=== PATIENT | female | born 1960 | race African-American/Black ===

== ENCOUNTER 2016-10-11 22:16 | Emergency (ER) | payer OTHER ==
[2016-10-11 22:47] VITALS: TEMP 98.8; BMI 34.2
[2016-10-11] MEDS ORDERED: ONDANSETRON 4 MG/2 ML VIAL IVPUSH STA (23:15)
[2016-10-11] MEDS ORDERED: SODIUM CHLORIDE 1,000 ML IV STA (23:15)
[2016-10-11] MEDS ORDERED: FAMOTIDINE 20 MG/50 ML IVPB 20 MG in PREMIX 50 IVPB ONE (23:15)
--- NOTE | 2016-10-11 23:16 | PDOC ---
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 Patient reports her last meal was on Sunday. The following day, she developed nausea, non-bloody vomiting and nonbloody/nonbilious diarrhea with some diffuse abdominal pain. Patient also has complaints of chills, but denies fever. The patient denies diaphoresis, lightheadedness, cough, SOB, chest pain, and palpitations. Allergies: NKDA Social History: Denies etoh or polysubstance use. Current smoker (half PPD) Past Surgical History: Cholecystectomy, left total knee replacement, lumbar surgery with rods PCP: Dr. Enriqueta Reyes <Veena Angulo - Last Filed: 10/11/16 23:30> - General History Source: Patient <Luis Alberto Hodges - Last Filed: 10/12/16 01:41> - General Chief Complaint: Vomiting/Diarrhea Stated Complaint: NAUSEA/VOMITING Time Seen by Provider: 10/11/16 23:15 Past History <Veena Angulo - Last Filed: 10/11/16 23:30> - Past Medical History Anemia: No Asthma: No Cancer: No Cardiac Disorders: No CVA: No COPD: No CHF: No Dementia: No Diabetes: No GI Disorders: Yes (ACID REFLUX) Disorders: No HTN: Yes Hypercholesterolemia: No Liver Disease: No Suicide Attempt (Hx): No Seizures: No Thyroid Disease: No - Surgical History Abdominal Surgery: No Cardiac Surgery: No Cholecystectomy: Yes (2006) Lung Surgery: No Neurologic Surgery: Yes (LUMBAR SURGERY 2014 WITH RODS) Orthopedic Surgery: Yes (L TKR 2013) - Psycho/Social/Smoking Cessation Hx Anxiety: No Suicidal Ideation: No Smoking History: Current every day smoker Have you smoked in the past 12 months: Yes Number of Cigarettes Smoked Daily: 10 Information on smoking cessation initiated: No 'Breaking Loose' booklet given: 10/19/15 Hx Alcohol Use: No Drug/Substance Use Hx: No Substance Use Type: None Hx Substance Use Treatment: (14 YEARS AGO) <Luis Alberto Hodges - Last Filed: 10/12/16 01:41> - Past Medical History Allergies/Adverse Reactions: Allergies Allergy/AdvReac Type Severity Reaction Status Date / Time No Known Drug Allergies Allergy Verified 10/11/16 22:47 Home Medications: Ambulatory Orders Cyclobenzaprine HCl [Flexeril -] 10 mg PO PRN 07/05/12 Losartan Potassium 25 mg PO DAILY 04/09/14 Methadone HCl 30 mg PO DAILY 04/09/14 Budesonide/Formeterol Fumarate [SYMBICORT 160/4.5mcg -] 1 inh PO PRN 02/20/15 Omeprazole [Prilosec] 40 mg PO DAILY 10/19/15 Latanoprost 0.005% Eye Drops [Xalatan 0.005% Eye Drops -] 1 drop OU HS 10/27/15 Ondansetron [Zofran *Odt*] 4 mg SL TID #30 od.tablet 10/12/16 Review of Systems - Review of Systems Able to Perform ROS?: Yes Comments:: 10/11/16 23:30 CONSTITUTIONAL: Absent: fever, no chills, no fatigue EYES: Absent: visual changes ENT: Absent: ear pain, no sore throat CARDIOVASCULAR: Absent: chest pain, no palpitations RESPIRATORY: Absent: cough, no SOB GI: +abdominal pain, nausea, vomiting, and diarrhea Absent: no constipation GENITOURINARY: Absent: dysuria, no frequency, no hematuria MUSKULOSKELETAL: Absent: back pain, no arthralgia, no myalgia SKIN: Absent: rash NEURO: Absent: headache <Veena Angulo - Last Filed: 10/11/16 23:30> *Physical Exam - Vital Signs Last Vital Signs Temp Pulse Resp BP Pulse Ox 98.8 F 72 18 157/82 98 10/11/16 22:43 10/11/16 22:43 10/11/16 22:43 10/11/16 22:43 10/11/16 22:43 - Physical Exam Comments: 10/11/16 23:30 GENERAL: Well-appearing, well-nourished. No apparent distress. HEENT: Normocephalic, atraumatic. PERRL, EOM intact. CARDIOVASCULAR: Normal S1, S2. Regular rate and rhythm. PULMONARY: Clear to auscultation bilaterally. ABDOMEN: Soft, non-distended, non-tender. No rebound or guarding. EXTREMITIES: Normal ROM in all four extremities. No gross deformities. SKIN: Warm, dry. No rash NEUROLOGICAL: No focal neurological deficits. <Veena Angulo - Last Filed: 10/11/16 23:30> - Vital Signs Last Vital Signs Temp Pulse Resp BP Pulse Ox 98.8 F 72 18 157/82 98 10/11/16 22:43 10/11/16 22:43 10/11/16 22:43 10/11/16 22:43 10/11/16 22:43 <Luis Alberto Hodges - Last Filed: 10/12/16 01:41> ED Treatment Course - LABORATORY CBC & Chemistry Diagram: 10/11/16 23:30 10/11/16 23:30 <Luis Alberto Hodges - Last Filed: 10/12/16 01:41> Medical Decision Making - Medical Decision Making 10/12/16 01:40 Dr. Hodges: The scribe's documentation has been prepared under my direction and personally reviewed by me in its entirery. I confirm that the note above accurately reflects all work, treatment, procedures, and medical decision making performed by me. Pt feels better after IVF in the department. Tolerated PO fluid. Labs are all normal. Will discharge <Luis Alberto Hodges - Last Filed: 10/12/16 01:41> *DC/Admit/Observation/Transfer - Attestations Scribe Attestion: 10/11/16 23:31 Documentation prepared by Veena Angulo, acting as medical legal investigator for Luis Alberto Hodges MD <Veena Angulo - Last Filed: 10/11/16 23:30> - Discharge Dispostion Admit: No <Luis Alberto Hodges - Last Filed: 10/12/16 01:41> Diagnosis at time of Disposition: Nausea & vomiting Qualifiers: Vomiting type: unspecified Vomiting Intractability: non-intractable Qualified Code(s): R11.2 - Nausea with vomiting, unspecified - Discharge Dispostion Disposition: HOME Condition at time of disposition: Stable - Prescriptions Prescriptions: Ondansetron [Zofran *Odt*] 4 mg SL TID #30 od.tablet - Referrals Referrals: Ho Reyes [Primary Care Provider] - - Patient Instructions Printed Discharge Instructions: DI for Nausea -- Adult, DI for Vomiting -- Adult
[2016-10-11] MEDS ORDERED: ONDANSETRON 4 MG/2 ML VIAL ONE (23:31)
[2016-10-11] MEDS ORDERED: FAMOTIDINE 20 MG/50 ML IVPB 50 ML IVPB ONE (23:31)
[2016-10-11 23:38] LABS: BASOPHIL 0.9 % (0-2.0); EOSINOPHIL 1.6 % (0-4.5); MCH 26.9 pg (25.7-33.7); MCHC 33.2 g/dl (32.0-36.0); MEAN CELL VOLUME 81.1 fl (80-96); PLATELET COUNT 242 K/MM3 (134-434); RDW 17.5 % (11.6-15.6); WHITE BLOOD COUNT 8.9 K/mm3 (4.0-10.0)
[2016-10-11 23:56] LABS: ALBUMIN 3.6 g/dl (3.4-5.0); ANION GAP 12 (8-16); CALCIUM 8.8 mg/dL (8.5-10.1); CO2 28 mmol/L (21-32); CREATININE 0.7 mg/dL (0.55-1.02); GLUCOSE,RANDOM 87 mg/dL (74-106); SGPT/ALT 12 U/L (12-78)
[2016-10-11 23:57] LABS: ALK PHOS 121 U/L (45-117); BILIRUBIN,TOTAL 0.7 mg/dL (0.2-1.0); TOT PROT 7.4 g/dl (6.4-8.2)
[2016-10-12 00:05] LABS: SGOT/AST 15 U/L (15-37)
[2016-10-12 00:58] VITALS: BP 125/68; PULSE 70
== END 2016-10-12 01:48 | disposition home or self-care (01) ==
LOC: SUPCPDRO 22:16 → JER 22:16
PROC: 3E033GC Introduction of Other Therapeutic Substance into Peripheral Vein, Percutaneous Approach (ICD-10-PCS; principal; 2016-10-11)
PROC: 3E0337Z Introduction of Electrolytic and Water Balance Substance into Peripheral Vein, Percutaneous Approach (ICD-10-PCS; 2016-10-11)
DX: R11.2 Nausea with vomiting, unspecified (principal); I10 Essential (primary) hypertension; K21.9 Gastro-esophageal reflux disease without esophagitis; G89.4 Chronic pain syndrome; F17.210 Nicotine dependence, cigarettes, uncomplicated
CPT/HCPCS: 36415; 80053; 83690; 85025; 99281-25

== ENCOUNTER 2017-05-09 18:37 | Emergency (ER) | payer OTHER ==
[2017-05-09 19:00] VITALS: TEMP 98.3; BMI 33.8
--- NOTE | 2017-05-09 21:58 | PDOC ---
History of Present Illness - General History Source: Patient Exam Limitations: No Limitations - History of Present Illness Initial Comments: 05/09/17 22:06 The patient is a 56 year old female, with a significant past medical history of HTN, GERD who presents to the emergency department with abdominal pain and nausea for the past 4 days. Patient reports pain is localized to RUQ, LUQ and epigastric region. Patient also reports decreased PO intake. Patient reports last BM 4 days ago and presents to the ED for further evaluation. She denies chest pain, headache or dizziness. She denies fever, chills, diarrhea or constipation. She denies dysuria, frequency, urgency or hematuria. Patient denies sick contacts or recent travel. <Orquidea Noyola - Last Filed: 05/09/17 22:05> - General History Source: Patient <Luis Alberto Hodges - Last Filed: 05/10/17 00:48> - General Chief Complaint: Nausea Stated Complaint: FATIGUE Time Seen by Provider: 05/09/17 21:47 Past History <Orquidea Noyola - Last Filed: 05/09/17 22:05> - Past Medical History Anemia: No Asthma: No Cancer: No Cardiac Disorders: No CVA: No COPD: No CHF: No Dementia: No Diabetes: No GI Disorders: Yes (ACID REFLUX) Disorders: No HTN: Yes Hypercholesterolemia: No Liver Disease: No Seizures: No Thyroid Disease: No Other medical history: BACK PROBLEMS - Surgical History Abdominal Surgery: No Cardiac Surgery: No Cholecystectomy: Yes (2006) Lung Surgery: No Neurologic Surgery: Yes (LUMBAR SURGERY 2014 WITH RODS) Orthopedic Surgery: Yes (L TKR 2013) - Suicide/Smoking/Psychosocial Hx Smoking History: Current every day smoker Have you smoked in the past 12 months: Yes Number of Cigarettes Smoked Daily: 10 Information on smoking cessation initiated: Yes 'Breaking Loose' booklet given: 05/09/17 Hx Alcohol Use: No Drug/Substance Use Hx: No Substance Use Type: None Hx Substance Use Treatment: (14 YEARS AGO) <Luis Alberto Hodges - Last Filed: 05/10/17 00:48> - Past Medical History Allergies/Adverse Reactions: Allergies Allergy/AdvReac Type Severity Reaction Status Date / Time No Known Drug Allergies Allergy Verified 05/09/17 19:00 Home Medications: Ambulatory Orders Cyclobenzaprine HCl [Flexeril -] 10 mg PO PRN 12/14/12 Losartan Potassium 25 mg PO DAILY 04/09/14 Methadone HCl 30 mg PO DAILY 04/09/14 Omeprazole [Prilosec] 40 mg PO DAILY 10/19/15 Latanoprost 0.005% Eye Drops [Xalatan 0.005% Eye Drops -] 1 drop OU HS 10/27/15 Famotidine [Pepcid] 40 mg PO DAILY #30 tablet 05/10/17 Ondansetron [Zofran *Odt*] 4 mg SL TID #30 od.tablet 05/10/17 Review of Systems - Review of Systems Able to Perform ROS?: Yes Comments:: 05/09/17 22:06 CONSTITUTIONAL: Absent: fever, chills, diaphoresis, generalized weakness, malaise, loss of appetite HEENT: Absent: rhinorrhea, nasal congestion, throat pain, throat swelling, difficulty swallowing, mouth swelling, ear pain, eye pain, visual Changes CARDIOVASCULAR: Absent: chest pain, syncope, palpitations, irregular heart rate, lightheadedness , peripheral edema RESPIRATORY: Absent: cough, shortness of breath, dyspnea with exertion, orthopnea, wheezing, stridor, hemoptysis GASTROINTESTINAL: +abdominal pain. +nausea. Absent: abdominal distension, vomiting, diarrhea, constipation, melena, hematochezia GENITOURINARY: Absent: dysuria, frequency, urgency, hesitancy, hematuria, flank pain, genital pain MUSCULOSKELETAL: Absent: myalgia, arthralgia, joint swelling SKIN: Absent: rash, itching, pallor HEMATOLOGIC/IMMUNOLOGIC: Absent: easy bleeding, easy bruising, lymphadenopathy, frequent infections ENDOCRINE: Absent: unexplained weight gain, unexplained weight loss, heat intolerance, cold intolerance NEUROLOGIC: Absent: headache, focal weakness or paresthesias, dizziness, unsteady gait, seizure, mental status changes, bladder or bowel incontinence PSYCHIATRIC: Absent: anxiety, depression, suicidal or homicidal ideation, hallucinations. <Orquidea Noyola - Last Filed: 05/09/17 22:05> *Physical Exam - Vital Signs Last Vital Signs Temp Pulse Resp BP Pulse Ox 98.3 F 70 20 139/74 96 05/09/17 18:53 05/09/17 18:53 05/09/17 18:53 05/09/17 18:53 05/09/17 18:53 - Physical Exam Comments: 05/09/17 22:06 GENERAL: Well developed, well nourished. Awake and alert. In no acute distress. HEENT: Normocephalic, atraumatic. PERRLA, EOMI. No conjunctival pallor. Sclerae are non -icteric. Moist mucous membranes. Oropharynx is clear. NECK: Supple. Full ROM. No JVD. Carotid pulses 2+ and symmetric, without bruits. No thyromegaly. No lymphadenopathy. CARDIOVASCULAR: Regular rate and rhythm. No murmurs, rubs, or gallops. Distal pulses are 2+ and symmetric. PULMONARY: No evidence of respiratory distress. Lungs clear to auscultation bilaterally. No wheezing, rales or rhonchi. ABDOMINAL: +Diffusely tender. +hyperactive bowel sounds. Soft. Non-distended. No rebound or guarding. No organomegaly. MUSCULOSKELETAL Normal range of motion at all joints. No bony deformities or tenderness. No CVA tenderness. EXTREMITIES: No cyanosis. No clubbing. No edema. No calf tenderness. SKIN: Warm and dry. Normal capillary refill. No rashes. No jaundice. NEUROLOGICAL: Alert, awake, appropriate. Cranial nerves 2-12 intact. No deficits to light touch and temperature in face, upper extremities and lower extremities. No motor deficits in the in face, upper extremities and lower extremities. Normoreflexic in the upper and lower extremities. Normal speech. Toes are downgoing bilaterally. Gait is normal without ataxia. PSYCHIATRIC: Cooperative. Good eye contact. Appropriate mood and affect. <Orquidea Noyola - Last Filed: 05/09/17 22:05> - Vital Signs Last Vital Signs Temp Pulse Resp BP Pulse Ox 98.3 F 70 20 139/74 96 05/09/17 18:53 05/09/17 18:53 05/09/17 18:53 05/09/17 18:53 05/09/17 18:53 <Luis Alberto Hodges - Last Filed: 05/10/17 00:48> ED Treatment Course - LABORATORY CBC & Chemistry Diagram: 05/09/17 22:25 05/09/17 22:20 <Luis Alberto Hodges - Last Filed: 05/10/17 00:48> Medical Decision Making - Medical Decision Making 05/10/17 00:47 Dr. Hodges: The scribe's documentation has been prepared under my direction and personally reviewed by me in its entirery. I confirm that the note above accurately reflects all work, treatment, procedures, and medical decision making performed by me. <Luis Alberto Hodges - Last Filed: 05/10/17 00:48> *DC/Admit/Observation/Transfer - Attestations Scribe Attestion: 05/09/17 22:06 Documentation prepared by Orquidea Noyola, acting as medical office receptionist for Luis Alberto Hodges DO <Orquidea Noyola - Last Filed: 05/09/17 22:05> - Discharge Dispostion Admit: No <Luis Alberto Hodges - Last Filed: 05/10/17 00:48> Diagnosis at time of Disposition: Nausea - Discharge Dispostion Disposition: HOME Condition at time of disposition: Stable - Prescriptions Prescriptions: Famotidine [Pepcid] 40 mg PO DAILY #30 tablet Ondansetron [Zofran *Odt*] 4 mg SL TID #30 od.tablet - Referrals Referrals: Ho Reyes [Primary Care Provider] - - Patient Instructions Printed Discharge Instructions: DI for Nausea -- Adult Additional Instructions: drink plenty of fluids. take medication as directed. Follow up with your doctor as needed, Return to ER if symptoms are worse
[2017-05-09] MEDS ORDERED: SODIUM CHLORIDE 1,000 ML IV STA (21:59)
[2017-05-09] MEDS ORDERED: FAMOTIDINE 20 MG/50 ML IVPB 20 MG in PREMIX 50 IVPB ONE (22:00)
[2017-05-09] MEDS ORDERED: KETOROLAC TROMETHAMINE 30 MG/1 ML VIAL IVPUSH ONE (22:00)
[2017-05-09] MEDS ORDERED: FAMOTIDINE 20 MG/50 ML IVPB 50 ML IVPB ONE (22:24)
[2017-05-09] MEDS ORDERED: ONDANSETRON 4 MG/2 ML VIAL ONE (22:24)
[2017-05-09] MEDS ORDERED: ONDANSETRON 4 MG/2 ML VIAL IVPUSH ONE (22:30)
[2017-05-09 22:32] LABS: BASOPHIL 0.6 % (0-2.0); MCHC 32.6 g/dl (32.0-36.0); MEAN CELL VOLUME 82.8 fl (80-96); MEAN PLT VOLUME 9.1 fl (7.5-11.1); NEUTROPHILS 56.8 % (42.8-82.8); PLATELET COUNT 216 K/MM3 (134-434); RDW 16.5 % (11.6-15.6); WHITE BLOOD COUNT 7.4 K/mm3 (4.0-10.0)
[2017-05-09 22:59] LABS: ALBUMIN 3.9 g/dl (3.4-5.0); AMYLASE 137 U/L (25-115); ANION GAP 8 (8-16); BILIRUBIN,TOTAL 0.5 mg/dL (0.2-1.0); CALCIUM 8.7 mg/dL (8.5-10.1); CO2 30 mmol/L (21-32); CREATININE 0.8 mg/dL (0.55-1.02); GLUCOSE,RANDOM 79 mg/dL (74-106); SGPT/ALT 11 U/L (12-78); TOT PROT 7.4 g/dl (6.4-8.2)
[2017-05-09 23:01] LABS: ALK PHOS 107 U/L (45-117); CPK 106 IU/L (26-192); TROPONIN I < 0.02 ng/ml (0.00-0.05)
[2017-05-09 23:02] LABS: SGOT/AST 10 U/L (15-37)
[2017-05-09 23:19] LABS: MAGNESIUM 2.5 mg/dL (1.8-2.4)
[2017-05-09] MEDS ORDERED: KETOROLAC TROMETHAMINE 30 MG/1 ML VIAL ONE (23:20)
[2017-05-10 00:56] LABS: URINE APPEARANCE SLCLOUDY; URINE BILIRUBIN NEGATIVE (NEGATIVE); URINE BLOOD NEGATIVE (NEGATIVE); URINE COLOR YELLOW; URINE GLUCOSE (UA) NEGATIVE (NEGATIVE); URINE KETONE NEGATIVE (NEGATIVE); URINE NITRITE NEGATIVE (NEGATIVE); URINE PROTEIN NEGATIVE (NEGATIVE); URINE UROBILINOGEN NEGATIVE mg/dL (0.2-1.0)
[2017-05-10 02:02] VITALS: BP 127/70; PULSE 65
[2017-05-10 09:33] LABS: URINE LEUK ESTERASE TRACE (NEGATIVE)
[2017-05-10 09:34] LABS: URINE RBC 0-3 /hpf (0-3); URINE WBC 0-3 /hpf (3-5)
[2017-05-10 09:35] LABS: URINE BACTERIA FEW /hpf (NEGATIVE)
--- NOTE | 2017-05-10 12:59 | EKG ---
Test Reason : Blood Pressure : / mmHG Vent. Rate : 056 BPM Atrial Rate : 056 BPM P-R Int : 166 ms QRS Dur : 084 ms QT Int : 486 ms P-R-T Axes : 053 017 009 degrees QTc Int : 468 ms SINUS BRADYCARDIA POSSIBLE LEFT ATRIAL ENLARGEMENT SEPTAL INFARCT , AGE UNDETERMINED ABNORMAL ECG WHEN COMPARED WITH ECG OF 19-OCT-2015 08:47, SEPTAL INFARCT IS NOW PRESENT NONSPECIFIC T WAVE ABNORMALITY NOW EVIDENT IN ANTEROLATERAL LEADS Confirmed by KVNG EDGE MD ([id number]) on 05/10/2017 12:59:05 PM Referred By: Confirmed By:KVNG EDGE MD
== END 2017-05-10 02:01 | disposition home or self-care (01) ==
LOC: JER 18:37
PROC: 3E033GC Introduction of Other Therapeutic Substance into Peripheral Vein, Percutaneous Approach (ICD-10-PCS; principal; 2017-05-09)
PROC: 3E033GC Introduction of Other Therapeutic Substance into Peripheral Vein, Percutaneous Approach (ICD-10-PCS; 2017-05-09)
PROC: 3E0333Z Introduction of Anti-inflammatory into Peripheral Vein, Percutaneous Approach (ICD-10-PCS; 2017-05-09)
DX: R11.0 Nausea (principal); I10 Essential (primary) hypertension; K21.9 Gastro-esophageal reflux disease without esophagitis; F17.210 Nicotine dependence, cigarettes, uncomplicated
CPT/HCPCS: 36415; 80053; 81003; 81015; 82150; 82550; 83690; 83735; 84484; 85025; 93005; 93010; 99283-25

== ENCOUNTER 2017-05-10 09:09 | Emergency (ER) | payer OTHER ==
[2017-05-10 09:27] VITALS: TEMP 98.4; BMI 33.8
[2017-05-10] MEDS ORDERED: ONDANSETRON 4 MG/2 ML VIAL IVPUSH ONE (10:26)
[2017-05-10] MEDS ORDERED: SODIUM CHLORIDE 1,000 ML IV STA (10:26)
[2017-05-10] MEDS ORDERED: ONDANSETRON 4 MG/2 ML VIAL ONE (10:50)
[2017-05-10 11:06] LABS: BASOPHIL 0.7 % (0-2.0); EOSINOPHIL 1.8 % (0-4.5); MCH 26.7 pg (25.7-33.7); MCHC 32.3 g/dl (32.0-36.0); MEAN CELL VOLUME 82.7 fl (80-96); MEAN PLT VOLUME 9.2 fl (7.5-11.1); NEUTROPHILS 56.9 % (42.8-82.8); PLATELET COUNT 218 K/MM3 (134-434); RDW 16.8 % (11.6-15.6); WHITE BLOOD COUNT 7.4 K/mm3 (4.0-10.0)
--- NOTE | 2017-05-10 11:14 | PDOC ---
History of Present Illness - General Chief Complaint: Nausea Stated Complaint: NAUSEA Time Seen by Provider: 05/10/17 09:56 History Source: Patient Exam Limitations: No Limitations - History of Present Illness Initial Comments: 05/10/17 10:05 56-year-old female presents to the ED with complaints of generalized nausea, cold sweats and mild fatigue. Patient was seen here yesterday had lab work including urine done and was sent home after receiving medication which she states did alleviate her symptoms. Patient also had mentioned that she had right upper quadrant pain yesterday but did resolve since the discharge. Patient is currently on methadone 30 mg daily and states there has been no dosage adjustment, other medication use, drug use, alcohol use , recent travel, recent illness. Patient also has no urinary complaints, bowel complaints chest pain or shortness of breath. Timing/Duration: other (4-5 days) Severity: moderate Associated Symptoms: reports: other Past History - Travel Traveled outside of the country in the last 30 days: No Close contact w/someone who was outside of country & ill: No - Past Medical History Allergies/Adverse Reactions: Allergies Allergy/AdvReac Type Severity Reaction Status Date / Time No Known Drug Allergies Allergy Verified 05/10/17 09:21 Home Medications: Ambulatory Orders Cyclobenzaprine HCl [Flexeril -] 10 mg PO PRN 07/05/12 Losartan Potassium 25 mg PO DAILY 04/09/14 Methadone HCl 30 mg PO DAILY 04/09/14 Latanoprost 0.005% Eye Drops [Xalatan 0.005% Eye Drops -] 1 drop OU HS 10/27/15 Famotidine [Pepcid] 40 mg PO DAILY #30 tablet 05/10/17 Ondansetron [Zofran *Odt*] 4 mg SL TID #30 od.tablet 05/10/17 Pantoprazole Sodium 40 mg PO DAILY 05/10/17 Anemia: No Asthma: No Cancer: No Cardiac Disorders: No CVA: No COPD: No CHF: No Dementia: No Diabetes: No GI Disorders: Yes (ACID REFLUX) Disorders: No HTN: Yes Hypercholesterolemia: No Liver Disease: No Seizures: No Thyroid Disease: No - Surgical History Abdominal Surgery: No Cardiac Surgery: No Cholecystectomy: Yes (2006) Lung Surgery: No Neurologic Surgery: Yes (LUMBAR SURGERY 2014 WITH RODS) Orthopedic Surgery: Yes (L TKR 2014) - Suicide/Smoking/Psychosocial Hx Smoking History: Current every day smoker Have you smoked in the past 12 months: Yes Number of Cigarettes Smoked Daily: 10 Information on smoking cessation initiated: No 'Breaking Loose' booklet given: 05/09/17 Hx Alcohol Use: No Drug/Substance Use Hx: No Substance Use Type: None Hx Substance Use Treatment: (14 YEARS AGO) Patient Lives Alone: No Review of Systems - Review of Systems Able to Perform ROS?: Yes Constitutional: Yes: Chills. No: Fever, Weakness HEENTM: No: Symptoms Reported Respiratory: No: Symptoms reported Cardiac (ROS): No: Symptoms Reported ABD/GI: Yes: Nausea, Abdominal cramping (4 days ago to right upper quadrant) Musculoskeletal: No: Symptoms Reported Integumentary: No: Symptoms Reported Neurological: No: Symptoms reported Endocrine: No: Symptoms Reported Hematologic/Lymphatic: No: Symptoms Reported *Physical Exam - Vital Signs Last Vital Signs Temp Pulse Resp BP Pulse Ox 98.4 F 71 19 152/81 95 05/10/17 09:21 05/10/17 09:21 05/10/17 09:21 05/10/17 09:21 05/10/17 09:21 - Physical Exam General Appearance: Yes: Nourished, Appropriately Dressed. No: Apparent Distress HEENT: positive: EOMI, NED. negative: Pale Conjunctivae Neck: positive: Supple Respiratory/Chest: positive: Lungs Clear, Normal Breath Sounds. negative: Respiratory Distress, Accessory Muscle Use Cardiovascular: positive: Regular Rhythm, Regular Rate. negative: Murmur Gastrointestinal/Abdominal: positive: Soft. negative: Tenderness Musculoskeletal: positive: Normal Inspection Extremity: positive: Normal Capillary Refill. negative: Pedal Edema Integumentary: positive: Normal Color, Warm, Moist Neurologic: positive: Normal Mood/Affect, Motor Strength 5/5 (ambulatory) ED Treatment Course - LABORATORY CBC & Chemistry Diagram: 05/10/17 10:57 05/10/17 10:57 - Medications Given in the ED: ED Medications Discontinued Medications Generic Name Dose Route Start Last Admin Trade Name Freq PRN Reason Stop Dose Admin Ondansetron HCl 4 mg 05/10/17 10:26 05/10/17 10:57 Zofran Injection IVPUSH 05/10/17 10:27 4 mg ONCE ONE Administration Medical Decision Making - Medical Decision Making 05/10/17 10:07 Patient with complaints of nausea, generalized fatigue, and cold sweats. Patient states has no GI disorders and has had no recent change in her methadone dosing. Patient received a GI cocktail including fluids yesterday. Labs reviewed from previous visit with no significantly abnormal findings. Patient exam had no reproducible pain in the epigastric or right upper quadrant. Patient was ordered for basic labs including urine, IV fluids and Zofran. Patient will be reevaluated shortly COWS scale 2. 05/10/17 12:00 Laboratory Tests 05/10/17 05/10/17 05/10/17 00:10 10:57 10:57 WBC 7.4 Hgb 13.9 Hct 43.1 RDW 16.8 H Plt Count 218 Neutrophils % 56.9 Sodium 140 Potassium 4.3 Chloride 105 Carbon Dioxide 27 Anion Gap 8 Creatinine 0.7 Creat Clearance w eGFR > 60 Random Glucose 66 L Calcium 8.4 L Total Bilirubin 0.8 D AST 22 D ALT 11 L Total Protein 7.0 Albumin 3.6 Total Amylase 104 D Lipase 162 Urine Nitrite Negative Urine Urobilinogen Negative Ur Leukocyte Esterase Trace H Urine WBC 0-3 /hpf Patient states feeling better. Patient with noted glucose of 66. Patient will be given apple juice and orly crackers. If tolerates will discharge home 05/10/17 12:20 Patient tolerated apple juice and orly crackers. I will discharge patient home with a few doses of Zofran and told to follow bland diet. *DC/Admit/Observation/Transfer Diagnosis at time of Disposition: Weakness, Nausea - Discharge Dispostion Disposition: HOME Condition at time of disposition: Improved - Referrals Referrals: Ho Reyes [Primary Care Provider] - - Patient Instructions Printed Discharge Instructions: [place] Diet, DI for Nausea -- Adult Additional Instructions: At this time your labs, urine, and exam were otherwise negative. I do recommend you follow bland diet for the next few days and take Zofran as needed for nausea. If your symptoms at any given time worsen please go to the nearest emergency department.
[2017-05-10 11:34] LABS: ALBUMIN 3.6 g/dl (3.4-5.0); ALK PHOS 101 U/L (45-117); AMYLASE 104 U/L (25-115); ANION GAP 8 (8-16); CALCIUM 8.4 mg/dL (8.5-10.1); CO2 27 mmol/L (21-32); CREATININE 0.7 mg/dL (0.55-1.02); GLUCOSE,RANDOM 66 mg/dL (74-106); SGPT/ALT 11 U/L (12-78)
[2017-05-10 11:35] LABS: BILIRUBIN,TOTAL 0.8 mg/dL (0.2-1.0)
[2017-05-10 11:36] LABS: SGOT/AST 22 U/L (15-37)
--- NOTE | 2017-05-10 11:50 | PDOC ---
*Physical Exam - Vital Signs Last Vital Signs Temp Pulse Resp BP Pulse Ox 98.4 F 71 19 152/81 95 05/10/17 09:21 05/10/17 09:21 05/10/17 09:21 05/10/17 09:21 05/10/17 09:21 - Physical Exam Comments: 05/10/17 11:56 Vitals: Triage Vital signs reviewed General Appearance: no acute distress, well nourished well developed Head: Atraumatic Neck: Supple; No Nucal rigidity Chest Wall: Nontender Cardiac: Regular rate and rhythm, no murmurs, no rubs, no gallops Lungs: Clear to auscultation bilateral, good air movement bilaterally Abdomen: Soft, non distended, normal bowel sounds, non tender to palpation Extremities: Full range of motion to all extremities, no cyanosis, clubbing, or edema Skin: Warm and dry, no rashes or lesions, no rash, no petechiae Neuro: AOX3; Cranial Nerves 2-12 grossly intact, Strength intact to all extremities, Sensation intact to all extremities Psych: normal mood, normal affect <Jacey Uribe - Last Filed: 05/10/17 11:56> - Vital Signs Last Vital Signs Temp Pulse Resp BP Pulse Ox 98.4 F 71 19 152/81 95 05/10/17 09:21 05/10/17 09:21 05/10/17 09:21 05/10/17 09:21 05/10/17 09:21 <Karel Ruggiero - Last Filed: 05/10/17 18:12> ED Treatment Course - LABORATORY CBC & Chemistry Diagram: 05/10/17 10:57 05/10/17 10:57 - ADDITIONAL ORDERS Additional order review: Laboratory Results 05/10/17 10:57 Sodium 140 Potassium 4.3 Chloride 105 Carbon Dioxide 27 Anion Gap 8 BUN 6 L Creatinine 0.7 Creat Clearance w eGFR > 60 Random Glucose 66 L Calcium 8.4 L Total Bilirubin 0.8 D AST 22 D ALT 11 L Alkaline Phosphatase 101 Total Protein 7.0 Albumin 3.6 Total Amylase 104 D Lipase 162 05/10/17 10:57 RBC 5.21 H MCV 82.7 MCHC 32.3 RDW 16.8 H MPV 9.2 Neutrophils % 56.9 Lymphocytes % 32.1 Monocytes % 8.5 Eosinophils % 1.8 Basophils % 0.7 - Medications Given in the ED: ED Medications Discontinued Medications Generic Name Dose Route Start Last Admin Trade Name Freq PRN Reason Stop Dose Admin Sodium Chloride 1,000 mls @ 1,000 mls/hr 05/10/17 10:26 05/10/17 10:56 Normal Saline - IV 05/10/17 11:25 1,000 mls/hr ASDIR STA Administration Ondansetron HCl 4 mg 05/10/17 10:26 05/10/17 10:57 Zofran Injection IVPUSH 05/10/17 10:27 4 mg ONCE ONE Administration <Jacey Uribe - Last Filed: 05/10/17 11:56> - LABORATORY CBC & Chemistry Diagram: 05/10/17 10:57 05/10/17 10:57 - ADDITIONAL ORDERS Additional order review: Laboratory Results 05/10/17 10:57 Sodium 140 Potassium 4.3 Chloride 105 Carbon Dioxide 27 Anion Gap 8 BUN 6 L Creatinine 0.7 Creat Clearance w eGFR > 60 Random Glucose 66 L Calcium 8.4 L Total Bilirubin 0.8 D AST 22 D ALT 11 L Alkaline Phosphatase 101 Total Protein 7.0 Albumin 3.6 Total Amylase 104 D Lipase 162 05/10/17 10:57 RBC 5.21 H MCV 82.7 MCHC 32.3 RDW 16.8 H MPV 9.2 Neutrophils % 56.9 Lymphocytes % 32.1 Monocytes % 8.5 Eosinophils % 1.8 Basophils % 0.7 - Medications Given in the ED: ED Medications Discontinued Medications Generic Name Dose Route Start Last Admin Trade Name Freq PRN Reason Stop Dose Admin Sodium Chloride 1,000 mls @ 1,000 mls/hr 05/10/17 10:26 05/10/17 10:56 Normal Saline - IV 05/10/17 11:25 1,000 mls/hr ASDIR STA Administration Ondansetron HCl 4 mg 05/10/17 10:26 05/10/17 10:57 Zofran Injection IVPUSH 05/10/17 10:27 4 mg ONCE ONE Administration <Karel Ruggiero - Last Filed: 05/10/17 18:12> Medical Decision Making - Medical Decision Making 05/10/17 11:56 56 y/o F with a PMHx of HTN, currently on Methadone presents to the ED c/o withdrawal symptoms. Patient was here last night for similar symptoms. She reports associated nausea. Denies vomiting. <Jacey Uribe - Last Filed: 05/10/17 11:56> - Medical Decision Making 05/10/17 18:11 Feels much better COWS score to no evidence of withdrawal patient asking to go home tolerating fluids and food Findings, need for follow-up and strict return instructions discussed patient. <Karel Ruggiero - Last Filed: 05/10/17 18:12> *DC/Admit/Observation/Transfer - Attestations Scribe Attestion: 05/10/17 11:57 Documentation prepared by Jacey Uribe, acting as medical screener for Karel Ruggiero MD. <Jacey Uribe - Last Filed: 05/10/17 11:56> <Karel Ruggiero - Last Filed: 05/10/17 18:12> Diagnosis at time of Disposition: Weakness, Nausea - Discharge Dispostion Disposition: HOME Condition at time of disposition: Improved - Prescriptions Prescriptions: Ondansetron HCl [Zofran] 4 mg PO TID PRN #12 tablet PRN Reason: Nausea And/Or Vomiting - Referrals Referrals: Ho Reyes [Primary Care Provider] - - Patient Instructions Printed Discharge Instructions: [place] Diet, DI for Nausea -- Adult Additional Instructions: At this time your labs, urine, and exam were otherwise negative. I do recommend you follow bland diet for the next few days and take Zofran as needed for nausea. If your symptoms at any given time worsen please go to the nearest emergency department.
[2017-05-10 12:40] VITALS: BP 142/81; PULSE 67
== END 2017-05-10 12:40 | disposition home or self-care (01) ==
LOC: JER 09:09
PROC: 3E033GC Introduction of Other Therapeutic Substance into Peripheral Vein, Percutaneous Approach (ICD-10-PCS; principal; 2017-05-10)
DX: R53.1 Weakness (principal); R11.0 Nausea
CPT/HCPCS: 36415; 80053; 82150; 83690; 85025; 87086; 99283-25

== ENCOUNTER 2017-10-28 08:40 | Emergency (ER) | payer OTHER ==
[2017-10-28 08:46] VITALS: BP 145/75; PULSE 78; TEMP 99.1; BMI 31.8
[2017-10-28 09:32] LABS: BASO % 0.5 % (0-2.0); EOS % 0.5 % (0-4.5); HEMOGLOBIN 16.6 GM/dL (10.7-15.3); LYMPH % 27.1 % (8-40); MCH 28.4 pg (25.7-33.7); MCHC 33.1 g/dl (32.0-36.0); MEAN CELL VOLUME 85.9 fl (80-96); MEAN PLT VOLUME 8.7 fl (7.5-11.1); MONO % 7.6 % (3.8-10.2); NEUT % 64.3 % (42.8-82.8); PLATELET COUNT 238 K/MM3 (134-434); RBC 5.83 M/mm3 (3.60-5.2); RDW 15.9 % (11.6-15.6); WHITE BLOOD COUNT 7.6 K/mm3 (4.0-10.0)
[2017-10-28 09:37] LABS: URINE APPEARANCE CLOUDY; URINE BILIRUBIN NEGATIVE (<2.0 mg/dL); URINE COLOR YELLOW; URINE GLUCOSE (UA) NEGATIVE (NEGATIVE); URINE KETONE TRACE (NEGATIVE); URINE LEUK ESTERASE TRACE (NEGATIVE); URINE NITRITE NEGATIVE (NEGATIVE); URINE PROTEIN NEGATIVE (NEGATIVE); URINE UROBILINOGEN NEGATIVE mg/dL (0.2-1.0)
[2017-10-28 09:42] LABS: EPI CELLS MODERATE /HPF (FEW); URINE BACTERIA MODERATE /hpf (NONE SEEN); URINE MUCUS MODERATE
[2017-10-28 10:04] LABS: ALBUMIN 4.2 g/dl (3.4-5.0); ANION GAP 7 (8-16); BILIRUBIN,TOTAL 0.6 mg/dL (0.2-1.0); BLOOD UREA NITROGEN 9 mg/dL (7-18); CALCIUM 9.1 mg/dL (8.5-10.1); CHLORIDE 101 mmol/L (98-107); CO2 28 mmol/L (21-32); CREATININE 0.8 mg/dL (0.55-1.02); GLUCOSE,RANDOM 63 mg/dL (74-106); SGPT/ALT 17 U/L (12-78); SODIUM 136 mmol/L (136-145); TOT PROT 8.4 g/dl (6.4-8.2)
[2017-10-28 10:05] LABS: ALK PHOS 124 U/L (45-117)
--- NOTE | 2017-10-28 10:18 | PDOC ---
History of Present Illness - General History Source: Patient Exam Limitations: No Limitations - History of Present Illness Initial Comments: 10/28/17 10:22 The patient is a 56-year-old female, with a significant past medical history of HTN, hyperlipidemia, GERD, and arthritis, who presents to the emergency department with 6 days of epigastric pain, nausea, and loss of appetite. The patient states that the pain has been constant since then and is exacerbated after she eats. She visited the ED a couple of months ago with similar symptoms and had labs done which revealed no abnormalities. The patient had an EGD performed last year by her Dba Developer, Dr. Benitez, which revealed no ulcers and was normal. The patient has been on prilosec for her GERD symptoms. She also reports having left nipple discharge that resolved back in may, but recurred once again. Patient has an upcoming appointment with her PCP, Dr. Reyes, this Sunday. Patient reports nonproductive cough. The patient denies any fever, chills, diarrhea, or constipation. Denies chest pain or shortness of breath. Denies any urinary symptoms. Allergies: NKDA Surgical Hx: Cholecystectomy, Total Hysterectomy due to fibroids, L TKR 2013, Lumbar Surgery with rods-2014. PCP: Dr. Reyes Gastro: Dr. Marciano Benitez ([facility]) <Kenia Miner - Last Filed: 10/28/17 10:22> - General History Source: Patient Exam Limitations: No Limitations <Stephanie Dent - Last Filed: 10/28/17 12:29> - General Chief Complaint: Loss of Appetite Stated Complaint: LOSS OF APPETITE, NAUSEA Past History <Kenia Miner - Last Filed: 10/28/17 10:22> - Past Medical History Anemia: No Asthma: No Cancer: No Cardiac Disorders: No CVA: No COPD: No CHF: No Dementia: No Diabetes: No GI Disorders: Yes (ACID REFLUX) Disorders: No HTN: Yes Hypercholesterolemia: No Liver Disease: No Seizures: No Thyroid Disease: No - Surgical History Abdominal Surgery: No Cardiac Surgery: No Cholecystectomy: Yes (2006) Lung Surgery: No Neurologic Surgery: Yes (LUMBAR SURGERY 2014 WITH RODS) Orthopedic Surgery: Yes (L TKR 2013) - Suicide/Smoking/Psychosocial Hx Smoking History: Current every day smoker Have you smoked in the past 12 months: Yes Number of Cigarettes Smoked Daily: 6 Information on smoking cessation initiated: Yes 'Breaking Loose' booklet given: 10/28/17 Hx Alcohol Use: No Drug/Substance Use Hx: No Substance Use Type: None Hx Substance Use Treatment: (14 YEARS AGO) <Stephanie Dent - Last Filed: 10/28/17 12:29> - Past Medical History Allergies/Adverse Reactions: Allergies Allergy/AdvReac Type Severity Reaction Status Date / Time No Known Drug Allergies Allergy Verified 10/28/17 08:45 Home Medications: Ambulatory Orders Losartan Potassium 25 mg PO DAILY 04/09/14 Methadone HCl 30 mg PO DAILY 04/09/14 Cephalexin [Keflex] 500 mg PO TID #21 capsule 10/28/17 Ondansetron [Ondansetron Odt] 8 mg PO TID PRN #15 tab.rapdis MDD 3 10/28/17 Review of Systems - Review of Systems Able to Perform ROS?: Yes Comments:: 10/28/17 10:23 GENERAL/CONSTITUTIONAL: (+)Loss of appetite. No fever or chills. No weakness. HEAD, EYES, EARS, NOSE AND THROAT: No change in vision. No ear pain or discharge. No sore throat. CARDIOVASCULAR: No chest pain or shortness of breath. RESPIRATORY: No cough, wheezing, or hemoptysis. GASTROINTESTINAL: (+)Nausea, epigastric pain. No vomiting, diarrhea or constipation. GENITOURINARY: No dysuria, frequency, or change in urination. MUSCULOSKELETAL: No joint or muscle swelling or pain. No neck or back pain. SKIN: No rash NEUROLOGIC: No headache, vertigo, loss of consciousness, or change in strength/ sensation. ENDOCRINE: No increased thirst. No abnormal weight change. HEMATOLOGIC/LYMPHATIC: No anemia, easy bleeding, or history of blood clots. ALLERGIC/IMMUNOLOGIC: No hives or skin allergy. <Kenia Miner - Last Filed: 10/28/17 10:22> *Physical Exam - Vital Signs Last Vital Signs Temp Pulse Resp BP Pulse Ox 99.1 F 78 17 145/75 95 10/28/17 08:43 10/28/17 08:43 10/28/17 08:43 10/28/17 08:43 10/28/17 08:43 - Physical Exam Comments: 10/28/17 10:24 GENERAL: Awake, alert, and fully oriented, in no acute distress HEAD: No signs of trauma EYES: PERRLA, EOMI, sclera anicteric, conjunctiva clear ENT: Auricles normal inspection, nares patent, oropharynx clear without exudates. Moist mucosa. NECK: Normal ROM, supple, no lymphadenopathy, JVD, or masses LUNGS: Breath sounds equal, clear to auscultation bilaterally. No wheezes, and no crackles HEART: Regular rate and rhythm, normal S1 and S2, no murmurs, rubs or gallops ABDOMEN: Soft, nontender, normoactive bowel sounds. No guarding, no rebound. No masses EXTREMITIES: Normal range of motion, no edema. No clubbing or cyanosis. No cords, erythema, or tenderness NEUROLOGICAL: Alert and oriented x 3. SKIN: Warm, Dry, normal turgor, no rashes or lesions noted <Kenia Miner - Last Filed: 10/28/17 10:22> - Vital Signs Last Vital Signs Temp Pulse Resp BP Pulse Ox 99.1 F 78 17 145/75 95 10/28/17 08:43 10/28/17 08:43 10/28/17 08:43 10/28/17 08:43 10/28/17 08:43 <Stephanie Dent - Last Filed: 10/28/17 12:29> Heart Score/ECG Review #1 General ECG Interpretation: Sinus Rhythm, Normal Rate (70), Normal Intervals, No acute ischemic changes <Stephanie Dent - Last Filed: 10/28/17 12:29> ED Treatment Course - LABORATORY CBC & Chemistry Diagram: 10/28/17 09:26 10/28/17 09:26 - ADDITIONAL ORDERS Additional order review: Laboratory Results 10/28/17 10/28/17 09:26 09:11 Sodium 136 Potassium 3.9 Chloride 101 Carbon Dioxide 28 Anion Gap 7 L BUN 9 Creatinine 0.8 Creat Clearance w eGFR > 60 Random Glucose 63 L Calcium 9.1 Total Bilirubin 0.6 D AST 19 ALT 17 Alkaline Phosphatase 124 H Total Protein 8.4 H Albumin 4.2 Urine Color Yellow Urine Appearance Cloudy Urine pH 5.0 Ur Specific [place] 1.014 Urine Protein Negative Urine Glucose (UA) Negative Urine Ketones Trace H Urine Blood Negative Urine Nitrite Negative Urine Bilirubin Negative Urine Urobilinogen Negative Ur Leukocyte Esterase Trace Urine WBC (Auto) 36 Urine RBC (Auto) 14 Ur Epithelial Cells Moderate Urine Bacteria Moderate Urine Mucus Moderate 10/28/17 09:26 RBC 5.83 H MCV 85.9 MCHC 33.1 RDW 15.9 H MPV 8.7 Neutrophils % 64.3 Lymphocytes % 27.1 Monocytes % 7.6 Eosinophils % 0.5 Basophils % 0.5 <Kenia Miner - Last Filed: 10/28/17 10:22> - LABORATORY CBC & Chemistry Diagram: 10/28/17 09:26 10/28/17 09:26 - ADDITIONAL ORDERS Additional order review: Laboratory Results 10/28/17 09:11 Urine Color Yellow Urine Appearance Cloudy Urine pH 5.0 Ur Specific [place] 1.014 Urine Protein Negative Urine Glucose (UA) Negative Urine Ketones Trace H Urine Blood Negative Urine Nitrite Negative Urine Bilirubin Negative Urine Urobilinogen Negative Ur Leukocyte Esterase Trace Urine WBC (Auto) 36 Urine RBC (Auto) 14 Ur Epithelial Cells Moderate Urine Bacteria Moderate Urine Mucus Moderate 10/28/17 09:26 RBC 5.83 H MCV 85.9 MCHC 33.1 RDW 15.9 H MPV 8.7 Neutrophils % 64.3 Lymphocytes % 27.1 Monocytes % 7.6 Eosinophils % 0.5 Basophils % 0.5 <Stephanie Dent - Last Filed: 10/28/17 12:29> Medical Decision Making - Medical Decision Making 10/28/17 10:15 56-year-old female with a history of reflux here today complaining of 6 days of nausea and decreased appetite and epigastric pain, worse with food. Has had a prior cholecystectomy and hysterectomy and an EGD one year ago which was unremarkable. Takes Protonix on a regular basis. On exam abdomen is nontender unremarkable exam. Differential diagnosis includes duodenal ulcer gastritis reflux pancreatitis less likely with a nontender exam is as UTI, electrolyte abnormality, atypical cardiac problem, plan EKG labs troponin lipase urine we'll treat with Zofran and antacids. Reassess patient will likely need to follow-up with her GI this week in addition has follow-up scheduled for atypical we'll discharge this Sunday <Stephanie Dent - Last Filed: 10/28/17 12:29> *DC/Admit/Observation/Transfer - Attestations Scribe Attestion: 10/28/17 10:24 Documentation prepared by Kenia Miner, acting as medical records analyst for Stephanie Dent MD. <Kenia Miner - Last Filed: 10/28/17 10:22> <Stephanie Dent - Last Filed: 10/28/17 12:29> Diagnosis at time of Disposition: UTI (urinary tract infection) - Discharge Dispostion Disposition: HOME Condition at time of disposition: Improved - Prescriptions Prescriptions: Cephalexin [Keflex] 500 mg PO TID #21 capsule Ondansetron [Ondansetron Odt] 8 mg PO TID PRN #15 tab.rapdis MDD 3 PRN Reason: Nausea - Referrals Referrals: Ho Reyes [Primary Care Provider] - - Patient Instructions Printed Discharge Instructions: Urinary Tract Infection Additional Instructions: take keflex 500 mg three times daily x 7 days. you should follow up with your doctor within one week. use zofran 8 mg every 8 hours as needed for nausea. you should follow up with the breast surgeon as scheduled for next week. also you can follow up with a software reverse engineer Dr Benitez. call to schedule. - Post Discharge Activity
[2017-10-28 10:21] LABS: POTASSIUM 3.9 mmol/L (3.5-5.1); SGOT/AST 19 U/L (15-37)
[2017-10-28] MEDS ORDERED: SODIUM CHLORIDE 0.9% 1000 ML INFUS.BAG IV ONE (10:23)
[2017-10-28] MEDS ORDERED: ONDANSETRON 4 MG/2 ML VIAL IVPUSH ONE (10:23)
[2017-10-28] MEDS ORDERED: MAG HYDROX/AL HYDROX/SIMETH 30 ML UNIT-DOSE CUP PO ONE (10:24)
[2017-10-28] MEDS ORDERED: LIDOCAINE VISCOUS 2% ORAL/TOP 20 ML UNIT-DOSE CUP MM ONE (10:24)
[2017-10-28] MEDS ORDERED: MAG HYDROX/AL HYDROX/SIMETH 30 ML UNIT-DOSE CUP ONE (10:25)
[2017-10-28] MEDS ORDERED: LIDOCAINE VISCOUS 2% ORAL/TOP 20 ML UNIT-DOSE CUP ONE (10:25)
[2017-10-28] MEDS ORDERED: FAMOTIDINE IV 20 MG/12 ML VIAL IVPUSH ONE (10:25)
[2017-10-28] MEDS ORDERED: FAMOTIDINE 20 MG/50 ML IVPB 20 MG/50 ML MG IVPB ONE (10:26)
[2017-10-28] MEDS ORDERED: ONDANSETRON 4 MG/2 ML VIAL ONE (10:26)
[2017-10-28 10:36] LABS: LIPASE 140 U/L (73-393)
[2017-10-28] MEDS ORDERED: CEPHALEXIN MONOHYDRATE 500 MG CAPSULE (UD) PO ONE (11:11)
[2017-10-28] MEDS ORDERED: CEPHALEXIN MONOHYDRATE 250 MG CAPSULE (FP) ONE (11:51)
--- NOTE | 2017-10-28 14:47 | EKG ---
Test Reason : Blood Pressure : / mmHG Vent. Rate : 070 BPM Atrial Rate : 070 BPM P-R Int : 144 ms QRS Dur : 070 ms QT Int : 382 ms P-R-T Axes : 057 001 -02 degrees QTc Int : 412 ms NORMAL SINUS RHYTHM POSSIBLE LEFT ATRIAL ENLARGEMENT BORDERLINE ECG WHEN COMPARED WITH ECG OF 09-MAY-2017 22:04, NO SIGNIFICANT CHANGE WAS FOUND Confirmed by YOANA KNUTSON, TAVARES ([id number]) on 10/28/2017 2:47:41 PM Referred By: Confirmed By:TAVARES LEES MD
== END 2017-10-28 12:30 | disposition home or self-care (01) ==
LOC: JER 08:40
PROC: 3E033GC Introduction of Other Therapeutic Substance into Peripheral Vein, Percutaneous Approach (ICD-10-PCS; principal; 2017-10-28)
PROC: 3E033GC Introduction of Other Therapeutic Substance into Peripheral Vein, Percutaneous Approach (ICD-10-PCS; 2017-10-28)
DX: N39.0 Urinary tract infection, site not specified (principal); I10 Essential (primary) hypertension; E78.5 Hyperlipidemia, unspecified; K21.9 Gastro-esophageal reflux disease without esophagitis; M12.9 Arthropathy, unspecified; Z90.49 Acquired absence of other specified parts of digestive tract; Z90.710 Acquired absence of both cervix and uterus; Z96.652 Presence of left artificial knee joint
CPT/HCPCS: 36415; 80053; 81003; 81015; 82550; 83690; 84484; 85025; 87086; 93005; 93010; 96374; 96375; 99282-25; J7030

== ENCOUNTER 2017-10-31 16:33 | Emergency (ER) | payer OTHER ==
[2017-10-31 17:15] VITALS: BMI 302.9
--- NOTE | 2017-10-31 17:15 | PDOC ---
Rapid Medical Evaluation Chief Complaint: Nausea Time Seen by Provider: 10/31/17 17:12 Medical Evaluation: Allergies Allergy/AdvReac Type Severity Reaction Status Date / Time No Known Drug Allergies Allergy Verified 10/31/17 17:11 10/31/17 17:12 I have performed a brief in-person evaluation of this patient. The patient presents with a chief complaint of: hx of uti, currently on antibiotics, went to pcp today and was sent here because still symptomatic with nausea, anorexia Pertinent physical exam findings: no cva tenderness, VSS I have ordered the following: ua, ucx The patient will proceed to the ED for further evaluation. Discharge Disposition - Diagnosis Urinary problem - Referrals - Patient Instructions - Post Discharge Activity
[2017-10-31] MEDS ORDERED: FAMOTIDINE 20 MG/50 ML IVPB 20 MG/50 ML MG IVPB ONE ×2 (19:40→19:51)
[2017-10-31] MEDS ORDERED: SODIUM CHLORIDE 500 ML IV STA (19:40)
[2017-10-31] MEDS ORDERED: ONDANSETRON 4 MG/2 ML VIAL IVPUSH ONE (19:45)
--- NOTE | 2017-10-31 19:45 | PDOC ---
History of Present Illness - General Chief Complaint: Nausea Stated Complaint: STOMACH PAIN Time Seen by Provider: 10/31/17 17:12 History Source: Patient - History of Present Illness Initial Comments: 10/31/17 19:41 56 year old female seen in the ED 2 days ago c/o epigastric discomfort and nausea upper abdominal pain tenderness. patient diagnosed with uti 2 days ago reports that dysuria is worse with frequency. denies fever/ chills, flank pain, chest pain, diaphoresis 10/31/17 19:45 Past History - Past Medical History Allergies/Adverse Reactions: Allergies Allergy/AdvReac Type Severity Reaction Status Date / Time No Known Drug Allergies Allergy Verified 10/31/17 17:11 Home Medications: Ambulatory Orders Losartan Potassium 25 mg PO DAILY 04/09/14 Methadone HCl 30 mg PO DAILY 04/09/14 Cephalexin [Keflex] 500 mg PO TID #21 capsule 10/28/17 Ondansetron [Ondansetron Odt] 8 mg PO TID PRN #15 tab.rapdis MDD 3 10/28/17 Sucralfate [Carafate -] 1 gm PO QID #20 tablet 11/01/17 Sulfamethoxazole/Trimethoprim [Bactrim Ds -] 1 tab PO BID #14 tablet 11/01/17 Anemia: No Asthma: No Cancer: No Cardiac Disorders: No CVA: No COPD: No CHF: No Dementia: No Diabetes: No GI Disorders: Yes (ACID REFLUX) Disorders: No HTN: Yes Hypercholesterolemia: No Liver Disease: No Seizures: No Thyroid Disease: No - Surgical History Abdominal Surgery: No Cardiac Surgery: No Cholecystectomy: Yes (2006) Lung Surgery: No Neurologic Surgery: Yes (LUMBAR SURGERY 2014 WITH RODS) Orthopedic Surgery: Yes (L TKR 2013) - Suicide/Smoking/Psychosocial Hx Smoking History: Never smoked Have you smoked in the past 12 months: Yes Number of Cigarettes Smoked Daily: 6 Information on smoking cessation initiated: No 'Breaking Loose' booklet given: 10/28/17 Hx Alcohol Use: No Drug/Substance Use Hx: No Substance Use Type: None Hx Substance Use Treatment: (14 YEARS AGO) Review of Systems - Review of Systems Able to Perform ROS?: Yes Is the patient limited Wolof proficient: No Constitutional: Yes: Weakness. No: Symptoms Reported, See HPI, Chills, Diaphoresis, Fever, Loss of Appetite, Malaise, Night Sweats, Weight Stable, Unintentional Wgt. Loss, Unexplained wgt Loss, Other Respiratory: No: Symptoms reported, See HPI, Cough, Orthopnea, Shortness of Breath, SOB with Exertion, SOB at Rest, Stridor, Wheezing, Productive cough, Hemoptysis, Other Cardiac (ROS): No: Symptoms Reported, See HPI, Chest Pain, Edema, Irregular Heart Rate, Lightheadedness, Palpitations, Syncope, Chest Tightness, Other ABD/GI: Yes: Nausea, Abdominal cramping. No: Symptoms Reported, See HPI, Abdominal Distended, Abd. Pain w/ defecation, Blood Streaked Bowels, Constipated , Diarrhea, Difficulty Swallowing, Poor Appetite, Poor Fluid Intake, Rectal Bleeding, Vomiting, Indigestion, Tarry Stools, Other Integumentary: No: Symptoms Reported, See HPI, Bruising, Change in Color, Change in Hair/Nails, Dryness, Erythema, Flushing, Lesions, Lumps, Pallor, Pruritus, Rash, Sweating, Other Neurological: No: Symptoms reported, See HPI, Headache, Numbness, Paresthesia, Pre-Existing Deficit, Seizure, Tingling, Tremors, Weakness, Unsteady Gait, Ataxia, Dizziness, Other *Physical Exam - Vital Signs Last Vital Signs Temp Pulse Resp BP Pulse Ox 98.3 F 74 16 116/90 100 10/31/17 17:11 10/31/17 17:11 10/31/17 17:11 10/31/17 17:11 10/31/17 17:11 - Physical Exam General Appearance: Yes: Appropriately Dressed Respiratory/Chest: positive: Lungs Clear, Normal Breath Sounds Gastrointestinal/Abdominal: positive: Normal Bowel Sounds, Tender (epigastric tenderness), Soft Musculoskeletal: positive: Normal Inspection. negative: CVA Tenderness Extremity: positive: Normal Capillary Refill, Normal Inspection, Normal Range of Motion Integumentary: positive: Normal Color, Dry, Warm Neurologic: positive: Fully Oriented, Alert, Normal Mood/Affect ED Treatment Course - LABORATORY CBC & Chemistry Diagram: 10/31/17 20:10 10/31/17 22:02 Progress Note - Progress Note Progress Note: A: *DC/Admit/Observation/Transfer Diagnosis at time of Disposition: Urinary problem UTI (urinary tract infection) Qualifiers: Urinary tract infection type: acute cystitis Hematuria presence: without hematuria Qualified Code(s): N30.00 - Acute cystitis without hematuria Gastritis Qualifiers: Gastritis type: unspecified gastritis Chronicity: unspecified Gastritis bleeding: without bleeding Qualified Code(s): K29.70 - Gastritis, unspecified, without bleeding - Discharge Dispostion Disposition: HOME - Prescriptions Prescriptions: Sucralfate [Carafate -] 1 gm PO QID #20 tablet Sulfamethoxazole/Trimethoprim [Bactrim Ds -] 1 tab PO BID #14 tablet - Referrals Referrals: Ho Reyes [Primary Care Provider] - - Patient Instructions Printed Discharge Instructions: [place] Diet Additional Instructions: drink plenty of fluids, start carafate as prescribed. take bactrim as prescribed. follow up with your doctor and gastroeneterologist as soon as possible. - Post Discharge Activity Forms/Work/School Notes: Back to Work
[2017-10-31] MEDS ORDERED: ONDANSETRON 4 MG/2 ML VIAL ONE (19:50)
[2017-10-31] MEDS ORDERED: SODIUM CHLORIDE 1,000 ML IV STA (20:14)
[2017-10-31 20:19] LABS: BASO % 0.5 % (0-2.0); EOS % 1.1 % (0-4.5); HEMATOCRIT 46.8 % (32.4-45.2); HEMOGLOBIN 15.9 GM/dL (10.7-15.3); LYMPH % 30.6 % (8-40); MCH 28.8 pg (25.7-33.7); MCHC 34.1 g/dl (32.0-36.0); MEAN CELL VOLUME 84.6 fl (80-96); MONO % 7.3 % (3.8-10.2); NEUT % 60.5 % (42.8-82.8); RBC 5.53 M/mm3 (3.60-5.2); RDW 15.7 % (11.6-15.6); WHITE BLOOD COUNT 9.3 K/mm3 (4.0-10.0)
[2017-10-31 20:24] LABS: URINE APPEARANCE SLCLOUDY; URINE BILIRUBIN NEGATIVE (<2.0 mg/dL); URINE BLOOD NEGATIVE (NEGATIVE); URINE COLOR DKYELLOW; URINE GLUCOSE (UA) NEGATIVE (NEGATIVE); URINE KETONE 1+ (NEGATIVE); URINE LEUK ESTERASE NEGATIVE (NEGATIVE); URINE NITRITE NEGATIVE (NEGATIVE)
--- NOTE | 2017-10-31 20:47 | PDOC ---
*Physical Exam - Vital Signs Last Vital Signs Temp Pulse Resp BP Pulse Ox 98.3 F 74 16 116/90 100 10/31/17 17:11 10/31/17 17:11 10/31/17 17:11 10/31/17 17:11 10/31/17 17:11 ED Treatment Course - LABORATORY CBC & Chemistry Diagram: 10/31/17 20:10 10/31/17 20:10 - Medications Given in the ED: ED Medications Discontinued Medications Generic Name Dose Route Start Last Admin Trade Name Freq PRN Reason Stop Dose Admin Famotidine/Sodium Chloride 20 mg in 50 mls @ 100 mls/hr 10/31/17 19:40 20:14 Pepcid 20 Mg Premixed Ivpb - IVPB 10/31/17 20:09 100 mls/hr ONCE ONE Administration Sodium Chloride 500 mls @ 500 mls/hr 10/31/17 19:40 10/31/17 20:45 Normal Saline - IV 10/31/17 20:39 Not Given ASDIR STA Ondansetron HCl 4 mg 10/31/17 19:45 10/31/17 20:14 Zofran Injection IVPUSH 10/31/17 19:46 4 mg ONCE ONE Administration Medical Decision Making - Medical Decision Making 10/31/17 20:47 agree with care from [facility] Owens *DC/Admit/Observation/Transfer Diagnosis at time of Disposition: Urinary problem - Referrals Referrals: Ho Reyes [Primary Care Provider] - - Patient Instructions - Post Discharge Activity
[2017-10-31 20:49] LABS: URINE PROTEIN 1+ (NEGATIVE)
[2017-10-31 20:50] LABS: EPI CELLS RARE /HPF (FEW); URINE BACTERIA FEW /hpf (NONE SEEN); URINE MUCUS MANY
[2017-10-31 22:16] LABS: PLATELET COUNT 242 K/MM3 (134-434); PLATELET ESTIMATE ADEQUATE
[2017-10-31] MEDS ORDERED: MAG HYDROX/AL HYDROX/SIMETH 30 ML UNIT-DOSE CUP PO ONE (22:48)
[2017-10-31 22:51] LABS: ALBUMIN 3.4 g/dl (3.4-5.0); ANION GAP 6 (8-16); BLOOD UREA NITROGEN 10 mg/dL (7-18); CALCIUM 8.1 mg/dL (8.5-10.1); CHLORIDE 105 mmol/L (98-107); CO2 30 mmol/L (21-32); CREATININE 0.7 mg/dL (0.55-1.02); GLUCOSE,RANDOM 61 mg/dL (74-106); POTASSIUM 3.9 mmol/L (3.5-5.1); SGOT/AST 11 U/L (15-37); SGPT/ALT 16 U/L (12-78); SODIUM 141 mmol/L (136-145)
[2017-10-31] MEDS ORDERED: SUCRALFATE 1 GM TABLET (FP) ONE (22:53)
[2017-10-31] MEDS ORDERED: MAG HYDROX/AL HYDROX/SIMETH 30 ML UNIT-DOSE CUP ONE (22:53)
[2017-10-31 22:55] LABS: ALK PHOS 101 U/L (45-117); BILIRUBIN,TOTAL 0.5 mg/dL (0.2-1.0); TOT PROT 6.5 g/dl (6.4-8.2)
[2017-10-31] MEDS ORDERED: SUCRALFATE 1 GM TABLET (FP) PO ONE (23:15)
[2017-11-01] MEDS ORDERED: SULFAMETHOXAZOLE/TRIMETHOPRIM 800MG/160MG D.S. TABLET PO ONE (00:43)
[2017-11-01 00:55] VITALS: BP 129/88; PULSE 71; TEMP 98.2
--- NOTE | 2017-11-01 15:55 | EKG ---
Test Reason : Blood Pressure : / mmHG Vent. Rate : 064 BPM Atrial Rate : 064 BPM P-R Int : 150 ms QRS Dur : 072 ms QT Int : 404 ms P-R-T Axes : 053 017 007 degrees QTc Int : 416 ms POOR DATA QUALITY, INTERPRETATION MAY BE ADVERSELY AFFECTED NORMAL SINUS RHYTHM POSSIBLE LEFT ATRIAL ENLARGEMENT SEPTAL INFARCT , AGE UNDETERMINED ABNORMAL ECG WHEN COMPARED WITH ECG OF 28-OCT-2017 10:40, NO SIGNIFICANT CHANGE WAS FOUND Confirmed by KVNG EDGE MD ([id number]) on 11/01/2017 3:54:42 PM Referred By: Confirmed By:KVNG EDGE MD
[2017-11-01] MEDS ORDERED: SUCRALFATE 1 GM TABLET (FP) PO ONE (23:00)
== END 2017-11-01 00:56 | disposition home or self-care (01) ==
LOC: JER 16:33
PROC: 3E033GC Introduction of Other Therapeutic Substance into Peripheral Vein, Percutaneous Approach (ICD-10-PCS; principal; 2017-10-31)
PROC: 3E0337Z Introduction of Electrolytic and Water Balance Substance into Peripheral Vein, Percutaneous Approach (ICD-10-PCS; 2017-10-31)
DX: K29.70 Gastritis, unspecified, without bleeding (principal); N30.00 Acute cystitis without hematuria; N39.9 Disorder of urinary system, unspecified
CPT/HCPCS: 36415; 80053; 81003; 81015; 82550; 83690; 84484; 85025; 87086; 93005; 93010; 99282-25; J7030

== ENCOUNTER 2018-11-07 18:42 | Emergency (ER) | payer OTHER ==
[2018-11-07 18:47] VITALS: BMI 30.9
--- NOTE | 2018-11-07 19:19 | PDOC ---
History of Present Illness - General Chief Complaint: Pain, Acute Stated Complaint: ABD.PAIN/NAUSEA Time Seen by Provider: 11/07/18 19:19 History Source: Patient Exam Limitations: No Limitations - History of Present Illness Initial Comments: 11/07/18 19:36 58 year old female with PMH HTN, GERD, ALMARAZ, hysterectomy, cholecystectomy, on methadone presented to ED for epigastric discomfort x4 days. She stated her pain is intermittent, located to her epigastrium, nonradiating, aggravated by food, no alleviating factors. She stated she feels as though "my food is not digesting". She admitted to nausea. She denied fever, chills, vomiting, diarrhea , dysuria, chest pain, shortness of breath. She stated she recently has eaten fried food, tea/coffee, spicy food that she feels has worsened her symptoms. Allergies: NKDA Past History - Past Medical History Allergies/Adverse Reactions: Allergies Allergy/AdvReac Type Severity Reaction Status Date / Time No Known Drug Allergies Allergy Verified 12/28/17 08:44 Home Medications: Ambulatory Orders Losartan Potassium 25 mg PO DAILY 04/09/14 Methadone HCl 30 mg PO DAILY 04/09/14 Oxycodone HCl/Acetaminophen [Percocet 10-325 mg Tablet] 1 each PO Q6H PRN Famotidine [Pepcid -] 20 mg PO BID #14 tablet 11/07/18 Pantoprazole Sodium 40 mg PO DAILY 11/07/18 Anemia: No Asthma: No Cancer: No Cardiac Disorders: No CVA: No COPD: No CHF: No Dementia: No Diabetes: No GI Disorders: Yes (ACID REFLUX) Disorders: No HTN: Yes Hypercholesterolemia: No Liver Disease: No Seizures: No Thyroid Disease: No - Surgical History Abdominal Surgery: No Cardiac Surgery: No Cholecystectomy: Yes (2006) Lung Surgery: No Neurologic Surgery: Yes (LUMBAR SURGERY 2014 WITH RODS) Orthopedic Surgery: Yes (L TKR 2013) - Immunization History Immunization Up to Date: No - Suicide/Smoking/Psychosocial Hx Smoking History: Current every day smoker Have you smoked in the past 12 months: Yes Number of Cigarettes Smoked Daily: 7 Information on smoking cessation initiated: No 'Breaking Loose' booklet given: 10/28/17 Hx Alcohol Use: No Drug/Substance Use Hx: No Substance Use Type: None Hx Substance Use Treatment: Yes (14 YEARS AGO) Review of Systems - Review of Systems Able to Perform ROS?: Yes Comments:: 11/07/18 19:39 General: denied fever, chills, generalized weakness. HEENT: denied sore throat, rhinorrhea, ear pain. Heart: denied chest pain, palpitations, syncope, diaphoresis. Respiratory: denied shortness of breath, cough, sputum production, hemoptysis. Abdomen: admitted to abdominal pain, nausea. denied vomiting, diarrhea, constipation, blood in stool. : denied dysuria, increased urinary frequency, hematuria, urinary incontinence , flank pain. Back: denied back pain. Musculoskeletal: denied joint pain, muscle pain, joint swelling. Neurological: denied headache, dizziness, numbness, tingling, weakness. Skin: denied rash, laceration, abrasion. *Physical Exam - Vital Signs Last Vital Signs Temp Pulse Resp BP Pulse Ox 97.7 F 68 16 129/75 98 11/07/18 18:45 11/07/18 18:45 11/07/18 18:45 11/07/18 18:45 11/07/18 18:45 - Physical Exam Comments: 11/07/18 19:41 Constitutional: Well-nourished, Well-developed, appearing stated age. HEENT: head is normocephalic, atraumatic. EOMI. PERRLA. Neck: supple. Full ROM. Heart: regular rhythm. no murmurs, rubs or gallops. Lungs: clear to auscultation bilaterally. no crackles, rhonchi or wheezing. no stridor. Abdomen: soft, nontender. normal bowel sounds. no rebound, guarding, masses. Extremities: peripheral pulses intact. no lower extremity edema. Neurological: CN 2-12 grossly intact. moves all four extremities. Psych: awake, alert, oriented x3. follows commands. answers questions appropriately. ED Treatment Course - LABORATORY CBC & Chemistry Diagram: 11/07/18 19:33 11/07/18 19:33 Medical Decision Making - Medical Decision Making 11/07/18 19:41 58 year old female with above PMH presented to ED for epigastric pain associated with nausea, worsened by food (spicy, fried, caffeine). Initial Vital Signs Temp Pulse Resp BP Pulse Ox 97.7 F 68 16 129/75 98 11/07/18 18:45 11/07/18 18:45 04/18/19 18:45 11/07/18 18:45 11/07/18 18:45 Afebrile. No tachycardia. No tachypnea. Normal blood pressure. No hypoxia on room air. Labs ordered: CBC, CMP, lipase Medications ordered: Pepcid, maalox Imaging ordered: none EKG performed at 2018: rate 59, regular rhythm, normal axis, normal intervals, no acute ST changes. 11/07/18 20:12 CBC WBC 7.6 K/mm3 (4.0-10.0) 11/07/18 19:33 RBC 5.00 M/mm3 (3.60-5.2) 11/07/18 19:33 Hgb 14.4 GM/dL (10.7-15.3) 11/07/18 19:33 Hct 43.3 % (32.4-45.2) 11/07/18 19:33 MCV 86.6 fl (80-96) 11/07/18 19:33 MCH 28.8 pg (25.7-33.7) 11/07/18 19:33 MCHC 33.3 g/dl (32.0-36.0) 11/07/18 19:33 RDW 15.1 % (11.6-15.6) 11/07/18 19:33 Plt Count 221 K/MM3 (134-434) 11/07/18 19:33 MPV 9.1 fl (7.5-11.1) 11/07/18 19:33 Absolute Neuts (auto) 4.2 K/mm3 (1.5-8.0) 11/07/18 19:33 Neutrophils % 55.9 % (42.8-82.8) 11/07/18 19:33 Lymphocytes % 34.9 % (8-40) 11/07/18 19:33 Monocytes % 6.7 % (3.8-10.2) 11/07/18 19:33 Eosinophils % 1.5 % (0-4.5) 11/07/18 19:33 Basophils % 1.0 % (0-2.0) 11/07/18 19:33 Nucleated RBC % 0 % (0-0) 11/07/18 19:33 No leukocytosis. No anemia. 11/07/18 20:42 CMP Sodium 139 mmol/L (136-145) 11/07/18 19:33 Potassium 4.1 mmol/L (3.5-5.1) 11/07/18 19:33 Chloride 104 mmol/L (98-107) 11/07/18 19:33 Carbon Dioxide 29 mmol/L (21-32) 11/07/18 19:33 Anion Gap 6 MMOL/L (8-16) L 11/07/18 19:33 BUN 7 mg/dL (7-18) 11/07/18 19:33 Creatinine 0.6 mg/dL (0.55-1.3) 11/07/18 19:33 Creat Clearance w eGFR 102.32 (>60) 11/07/18 19:33 Random Glucose 75 mg/dL (74-106) 11/07/18 19:33 Calcium 9.0 mg/dL (8.5-10.1) 11/07/18 19:33 Total Bilirubin 0.5 mg/dL (0.2-1) 11/07/18 19:33 AST 13 U/L (15-37) L 11/07/18 19:33 ALT 13 U/L (13-61) 11/07/18 19:33 Alkaline Phosphatase 134 U/L (45-117) H 11/07/18 19:33 Total Protein 7.2 g/dl (6.4-8.2) 11/07/18 19:33 Albumin 3.6 g/dl (3.4-5.0) 11/07/18 19:33 Lipase 150 U/L (73-393) 11/07/18 19:33 No electrolyte abnormalities. No BARAK. Elevated ALP, normal AST/ALT. Normal lipase. 11/07/18 21:09 Pt reassessed, reported improvement of symptoms. Abdomen soft, flat, nontender. Pt informed of results. Pt informed of GERD diet. Pt informed to follow up with PCP and GI. 11/07/18 21:18 *DC/Admit/Observation/Transfer Diagnosis at time of Disposition: GERD (gastroesophageal reflux disease), Epigastric discomfort - Discharge Dispostion Condition at time of disposition: Improved - Prescriptions Prescriptions: Famotidine [Pepcid -] 20 mg PO BID #14 tablet - Referrals Referrals: Shahbaz Grant DO [Staff Physician] - Lopez Arcos MD [Staff Physician] - Ho Reyes [Primary Care Provider] - Kervin Teran MD [Staff Physician] - Marciano Benitez MD [Staff Physician] - - Patient Instructions Additional Instructions: You were seen today for abdominal discomfort. Your lab work was normal. Your symptoms are likely from irritation to your stomach. Foods to avoid: spicy, fried, tea/coffee/energy drinks, tomatoes, chocolate, alcohol. Foods to eat in the next 24-48 hours while your stomach is inflamed: plain chicken, rice, toast, vegetables, fruits. Follow up with your primary care doctor in 2-3 days. Follow up with a lithographic general worker in 2-3 days. I have provided you with referrals should you need them. I have sent a prescription to your pharmacy to treat the stomach acid, take as advised on label. Return to the Emergency Department for increasing, pain, vomiting, vomiting blood, chest pain, shortness of breath, fever or any other new, worsening or concerning symptoms. - Post Discharge Activity Forms/Work/School Notes: Back to Work
[2018-11-07] MEDS ORDERED: FAMOTIDINE 20 MG/50 ML IVPB 20 MG/50 ML MG IVPB ONE ×2 (19:37→19:51)
[2018-11-07] MEDS ORDERED: MAG HYDROX/AL HYDROX/SIMETH 30 ML UNIT-DOSE CUP PO ONE (19:37)
[2018-11-07] MEDS ORDERED: MAG HYDROX/AL HYDROX/SIMETH 30 ML UNIT-DOSE CUP ONE (19:51)
[2018-11-07 19:56] LABS: EOS % 1.5 % (0-4.5); HEMATOCRIT 43.3 % (32.4-45.2); HEMOGLOBIN 14.4 GM/dL (10.7-15.3); LYMPH % 34.9 % (8-40); MCH 28.8 pg (25.7-33.7); MCHC 33.3 g/dl (32.0-36.0); MEAN CELL VOLUME 86.6 fl (80-96); MEAN PLT VOLUME 9.1 fl (7.5-11.1); MONO % 6.7 % (3.8-10.2); NEUT % 55.9 % (42.8-82.8); PLATELET COUNT 221 K/MM3 (134-434); RDW 15.1 % (11.6-15.6); WHITE BLOOD COUNT 7.6 K/mm3 (4.0-10.0)
[2018-11-07 20:11] LABS: INR 1.08 (0.83-1.09); PROTHROMBIN TIME (PATIENT) 12.8 SEC (9.7-13.0)
[2018-11-07 20:14] LABS: ACTIVATED PTT 36.2 SECONDS (25.2-36.5)
[2018-11-07 20:26] LABS: ALBUMIN 3.6 g/dl (3.4-5.0); ALK PHOS 134 U/L (45-117); ANION GAP 6 MMOL/L (8-16); BILIRUBIN,TOTAL 0.5 mg/dL (0.2-1); BLOOD UREA NITROGEN 7 mg/dL (7-18); CHLORIDE 104 mmol/L (98-107); CO2 29 mmol/L (21-32); CREATININE 0.6 mg/dL (0.55-1.3); GLUCOSE,RANDOM 75 mg/dL (74-106); LIPASE 150 U/L (73-393); POTASSIUM 4.1 mmol/L (3.5-5.1); SGOT/AST 13 U/L (15-37); SGPT/ALT 13 U/L (13-61); SODIUM 139 mmol/L (136-145); TOT PROT 7.2 g/dl (6.4-8.2)
--- NOTE | 2018-11-07 20:26 | PDOC ---
Documentation entered by Lian Sesay SCRIBE, acting as scribe for Dashawn Hinton MD. Dashawn Hinton MD: This documentation has been prepared by the Lázaro modi Adrianna, SCRIBE, under my direction and personally reviewed by me in its entirety. I confirm that the documentation accurately reflects all work, treatment, procedures, and medical decision making performed by me. Attending Attestation - Resident Resident Name: ErikaAnnel - ED Attending Attestation I have performed the following: I have examined & evaluated the patient, The case was reviewed & discussed with the resident, I agree w/resident's findings & plan, Exceptions are as noted - HPI HPI: The patient is a 58 year old female, with a significant PMH of GERD, ALMARAZ, and HTN, who presents to the emergency department today complaining of abdominal discomfort for 4 days that she characterizes as a feeling of bloating. Patient notes the discomfort is localized to the epigastric region, intermittent in nature, and is exacerbated with food consumption (specifically spicy or fried food, and caffeinated products). She describes her discomfort as my food is not digesting. Patient endorses associated nausea without vomit. The patient denies chest pain, shortness of breath, headache and dizziness. Denies fever, chills, vomit, diarrhea and constipation. Denies dysuria, frequency, urgency and hematuria. Allergies: NKA Past surgical history: Hysterectomy and cholecystectomy Social history: No reported PCP: Dr. Ho Reyes 11/07/18 20:25 11/07/18 20:32 - Physicial Exam PE: 11/07/18 20:32 Well appearing, NAD, AOx3 NCAT Neck supple RRR Abd soft, nt, nd, no guarding, no rebound FOSTER, NFD - Medical Decision Making 11/07/18 20:33 58F with above documented med/surg hx here with several days of abdominal discomfort similar to discomfort she has had in the past. Abd is benign w/o any risk factors for clotting or thombi Exam is inconsistent with acute abdomen, consider gastritis, GI influence of chronic opioid meds, less likely pancreatitis, hepatitis, gallblader, bile duct disease Trial symptomatic relief F/u labs re-eval 11/07/18 22:38 Endorsed symptomatic relief No lab derangements requiring immediate intervention or investigation safe for dc
[2018-11-07 21:30] VITALS: BP 127/62; PULSE 64; TEMP 98.3
--- NOTE | 2018-11-08 10:40 | EKG ---
Test Reason : Blood Pressure : / mmHG Vent. Rate : 059 BPM Atrial Rate : 059 BPM P-R Int : 172 ms QRS Dur : 080 ms QT Int : 426 ms P-R-T Axes : 061 016 024 degrees QTc Int : 421 ms SINUS BRADYCARDIA POSSIBLE LEFT ATRIAL ENLARGEMENT SEPTAL INFARCT (CITED ON OR BEFORE 31-OCT-2017) ABNORMAL ECG Confirmed by KRISTYN MATHEW MD ([id number]) on 11/08/2018 10:39:53 AM Referred By: Confirmed By:KRISTYN MATHEW MD
== END 2018-11-07 21:29 | disposition home or self-care (01) ==
LOC: JER 18:42
PROC: 3E033GC Introduction of Other Therapeutic Substance into Peripheral Vein, Percutaneous Approach (ICD-10-PCS; principal; 2018-11-07)
DX: K21.9 Gastro-esophageal reflux disease without esophagitis (principal); K75.81 Nonalcoholic steatohepatitis (NASH); I10 Essential (primary) hypertension
CPT/HCPCS: 36415; 80053; 83690; 85025; 85610; 85730; 93005; 93010; 99282-25

== ENCOUNTER 2019-01-20 12:37 | Emergency (ER) | payer OTHER ==
[2019-01-20 12:45] VITALS: PULSE 79; TEMP 98.5; BMI 32.8
[2019-01-20] MEDS ORDERED: PANTOPRAZOLE SODIUM 40 MG in SODIUM CHLORIDE 100 ML IVPB ONE (13:03)
[2019-01-20] MEDS ORDERED: ONDANSETRON 4 MG/2 ML VIAL IVPUSH ONE (13:06)
[2019-01-20] MEDS ORDERED: KETOROLAC TROMETHAMINE 30 MG/1 ML VIAL IVPUSH STA (13:06)
--- NOTE | 2019-01-20 13:08 | PDOC ---
*Physical Exam - Vital Signs Last Vital Signs Temp Pulse Resp BP Pulse Ox 98.5 F 79 18 155/72 99 01/20/19 12:42 01/20/19 12:42 01/20/19 12:42 01/20/19 12:42 01/20/19 12:42 ED Treatment Course - LABORATORY CBC & Chemistry Diagram: 01/20/19 14:00 01/20/19 14:00 Medical Decision Making - Medical Decision Making 01/20/19 13:08 Pt seen by Midlevel Provider under my direct supervision Ancillary studies pending Signed out to Dr. Albrecht I agree with plan as outlined by Midlevel Provider EKG - NSR rate of 66 bpm, axis nml, intervals nml, no st elevation or depression 01/20/19 14:34 *DC/Admit/Observation/Transfer Diagnosis at time of Disposition: Abdominal pain - Discharge Dispostion Disposition: HOME Condition at time of disposition: Stable - Prescriptions Prescriptions: Pantoprazole Sodium [Protonix] 40 mg PO DAILY #20 tablet.dr - Referrals Referrals: Ho Reyes [Primary Care Provider] - Call tomorrow Marciano Benitez MD [Staff Physician] - Call tomorrow - Patient Instructions Printed Discharge Instructions: DI for Abdominal Pain-Adult Additional Instructions: please follow up Dr. Benitez & Dr. Reyes as soon as possible, take protonix As soon as possible. - Post Discharge Activity Forms/Work/School Notes: Back to Work
[2019-01-20] MEDS ORDERED: ONDANSETRON 4 MG/2 ML VIAL ONE (13:45)
[2019-01-20] MEDS ORDERED: KETOROLAC TROMETHAMINE 30 MG/1 ML VIAL ONE (13:45)
[2019-01-20] MEDS ORDERED: PANTOPRAZOLE SODIUM 40 MG/100 ML BAG IVPB ONE (13:45)
--- NOTE | 2019-01-20 13:51 | PDOC ---
History of Present Illness - General Chief Complaint: Pain Stated Complaint: ABD. PAIN/LOWER BACK PAIN Time Seen by Provider: 01/20/19 13:01 History Source: Patient Exam Limitations: No Limitations - History of Present Illness Travel History: No Initial Comments: 01/20/19 13:32 58-year-old female presents the emergency with complaints of epigastric burning and cramping associated with nausea for the past 2 days without fever, chills, shortness of breath or chest pain. Patient states pain is not radiating to her back currently but did yesterday. . Patient states history of GERD and is followed by Dr. Benitez currently on protonix. No urinary or bowel complaints. Timing/Duration: reports: constant Quality: reports: mild, moderate, burning, cramping Abdominal Pain Onset Location: reports: epigastric Pain Radiation: reports: back Activities at Onset: reports: none Aggravating Factors: improves with: None Alleviating Factors: improves with: None Past History - Travel Traveled outside of the country in the last 30 days: No Close contact w/someone who was outside of country & ill: No - Past Medical History Allergies/Adverse Reactions: Allergies Allergy/AdvReac Type Severity Reaction Status Date / Time No Known Drug Allergies Allergy Verified 01/20/19 12:45 Home Medications: Ambulatory Orders Losartan Potassium 25 mg PO DAILY 04/09/14 Methadone HCl 30 mg PO DAILY 04/09/14 Pantoprazole Sodium 40 mg PO DAILY 11/07/18 Pantoprazole Sodium [Protonix] 40 mg PO DAILY #20 tablet. 01/20/19 Anemia: No Asthma: No Cancer: No Cardiac Disorders: No CVA: No COPD: No CHF: No Dementia: No Diabetes: No GI Disorders: Yes (ACID REFLUX) Disorders: No HTN: Yes Hypercholesterolemia: No Liver Disease: No Seizures: No Thyroid Disease: No - Surgical History Abdominal Surgery: No Cardiac Surgery: No Cholecystectomy: Yes (2006) Lung Surgery: No Neurologic Surgery: Yes (LUMBAR SURGERY 2014 WITH RODS) Orthopedic Surgery: Yes (L TKR 2013) - Immunization History Immunization Up to Date: No - Suicide/Smoking/Psychosocial Hx Smoking History: Never smoked Have you smoked in the past 12 months: Yes Number of Cigarettes Smoked Daily: 7 'Breaking Loose' booklet given: 10/28/17 Hx Alcohol Use: No Drug/Substance Use Hx: No Substance Use Type: None Hx Substance Use Treatment: Yes (14 YEARS AGO) Patient Lives Alone: No Lives with/in: spouse/SO Abd/GI Specific PMHX - Complaint Specific PMHX GERD: Yes Review of Systems - Review of Systems Able to Perform ROS?: Yes Constitutional: No: Symptoms Reported HEENTM: No: Symptoms Reported Respiratory: No: Symptoms reported Cardiac (ROS): No: Symptoms Reported ABD/GI: Yes: Nausea, Indigestion, Abdominal cramping : No: Symptoms Reported Musculoskeletal: No: Symptoms Reported Integumentary: No: Symptoms Reported Neurological: No: Symptoms reported Endocrine: No: Symptoms Reported Hematologic/Lymphatic: No: Symptoms Reported *Physical Exam - Vital Signs Last Vital Signs Temp Pulse Resp BP Pulse Ox 98.5 F 79 18 155/72 99 01/20/19 12:42 01/20/19 12:42 01/20/19 12:42 01/20/19 12:42 01/20/19 12:42 - Physical Exam General Appearance: Yes: Nourished, Appropriately Dressed. No: Apparent Distress HEENT: positive: TMs Normal, Pharynx Normal Neck: positive: Supple Respiratory/Chest: positive: Lungs Clear, Normal Breath Sounds. negative: Respiratory Distress, Accessory Muscle Use Cardiovascular: positive: Regular Rhythm, Regular Rate. negative: Murmur Gastrointestinal/Abdominal: positive: Normal Bowel Sounds, Soft, Tenderness ( epigastric upper perumbilical). negative: Pulsatile Mass, Distended, Guarding, Rebound Musculoskeletal: negative: CVA Tenderness Extremity: positive: Normal Inspection Integumentary: positive: Normal Color, Warm, Moist Neurologic: positive: Motor Strength 5/5 (ambulatory) Heart Score/ECG Review - ECG Intrepretation Rhythm: Regular Rhythm (rate 66, left atrial enlargement) ED Treatment Course - LABORATORY CBC & Chemistry Diagram: 01/20/19 14:00 01/20/19 14:00 Medical Decision Making - Medical Decision Making 01/20/19 13:33 CC: epigastric pain with nausea, hx gerd Exam: epigastric and upper periumbilical tenderness, no distention Plan: labs, ivf, urine, zofran, protonix, and toradol 01/20/19 15:53 Laboratory Tests 01/20/19 01/20/19 14:00 14:00 WBC 6.9 Hgb 14.9 Hct 44.8 RDW 16.4 H Absolute Neuts (auto) 4.9 Monocytes % 11.9 H Sodium 139 Potassium 4.4 Chloride 105 Carbon Dioxide 28 Anion Gap 6 L BUN 7.7 Creatinine 0.6 Random Glucose 78 Calcium 8.8 Total Bilirubin 1.6 H AST 820 H ALT 297 H Alkaline Phosphatase 269 H Total Protein 7.6 Albumin 3.8 Lipase 233 01/20/19 17:51 Pt states feeling better. Status post cholecystectomy. Borderline hepatomegaly suggesting a mild fatty will infiltration. Mild dilatation of the renal pelvis that may represent extrarenal pelvis. There is also mild fullness of the pelvicalyceal system sugg of mild hydronephrosis. 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 Will order abd ct w/contrast *DC/Admit/Observation/Transfer Diagnosis at time of Disposition: Abdominal pain - Discharge Dispostion Disposition: HOME Condition at time of disposition: Stable - Prescriptions Prescriptions: Pantoprazole Sodium [Protonix] 40 mg PO DAILY #20 tablet.dr - Referrals Referrals: Ho Reyes [Primary Care Provider] - Call tomorrow Marciano Benitez MD [Staff Physician] - Call tomorrow - Patient Instructions Printed Discharge Instructions: DI for Abdominal Pain-Adult Additional Instructions: please follow up Dr. Benitez & Dr. Reyes as soon as possible, take protonix As soon as possible. - Post Discharge Activity Forms/Work/School Notes: Back to Work
[2019-01-20 14:26] LABS: EPI CELLS 2.9 /HPF (0-5/HPF); HYALINE CASTS 5 /lpf (0-8); PH,URINE 5.5 (5.0-8.0); URINE APPEARANCE CLEAR; URINE BACTERIA 271.5 /hpf (NEGATIVE); URINE BILIRUBIN NEGATIVE (NEGATIVE); URINE COLOR YELLOW; URINE GLUCOSE (UA) NEGATIVE (NEGATIVE); URINE KETONE NEGATIVE (NEGATIVE); URINE LEUK ESTERASE TRACE (NEGATIVE); URINE NITRITE NEGATIVE (NEGATIVE); URINE PROTEIN NEGATIVE (NEGATIVE); URINE RBC 5 /hpf (0-4); URINE WBC 7 /hpf (0-5)
[2019-01-20 14:27] LABS: BASO % 0.8 % (0-2.0); EOS % 0.7 % (0-4.5); HEMATOCRIT 44.8 % (32.4-45.2); HEMOGLOBIN 14.9 GM/dL (10.7-15.3); LYMPH % 15.7 % (8-40); MCH 28.5 pg (25.7-33.7); MCHC 33.1 g/dl (32.0-36.0); MEAN PLT VOLUME 8.8 fl (7.5-11.1); MONO % 11.9 % (3.8-10.2); NEUT % 70.9 % (42.8-82.8); PLATELET COUNT 227 K/MM3 (134-434); RBC 5.21 M/mm3 (3.60-5.2); RDW 16.4 % (11.6-15.6); WHITE BLOOD COUNT 6.9 K/mm3 (4.0-10.0)
[2019-01-20 14:53] LABS: ALBUMIN 3.8 g/dl (3.4-5.0); BILIRUBIN,TOTAL 1.6 mg/dL (0.2-1); BLOOD UREA NITROGEN 7.7 mg/dL (7-18); CALCIUM 8.8 mg/dL (8.5-10.1); CREATININE 0.6 mg/dL (0.55-1.3); POTASSIUM 4.4 mmol/L (3.5-5.1); TOT PROT 7.6 g/dl (6.4-8.2)
--- NOTE | 2019-01-20 19:52 | PDOC ---
*Physical Exam - Vital Signs Last Vital Signs Temp Pulse Resp BP Pulse Ox 98.5 F 79 18 155/72 99 01/20/19 12:42 01/20/19 12:42 01/20/19 12:42 01/20/19 12:42 01/20/19 12:42 ED Treatment Course - LABORATORY CBC & Chemistry Diagram: 01/20/19 14:00 01/20/19 14:00 - ADDITIONAL ORDERS Additional order review: Laboratory Results 01/20/19 01/20/19 14:00 13:49 Sodium 139 Potassium 4.4 Chloride 105 Carbon Dioxide 28 Anion Gap 6 L BUN 7.7 Creatinine 0.6 Est GFR (CKD-EPI)AfAm 115.63 Est GFR (CKD-EPI)NonAf 99.77 Random Glucose 78 Calcium 8.8 Total Bilirubin 1.6 H AST 820 H ALT 297 H Alkaline Phosphatase 269 H Total Protein 7.6 Albumin 3.8 Lipase 233 Urine Color Yellow Urine Appearance Clear Urine pH 5.5 Ur Specific [place] 1.013 Urine Protein Negative Urine Glucose (UA) Negative Urine Ketones Negative Urine Blood Negative Urine Nitrite Negative Urine Bilirubin Negative Urine Urobilinogen 1.0 Ur Leukocyte Esterase Trace Urine WBC (Auto) 7 Urine RBC (Auto) 5 Urine Casts (Auto) 5 U Epithel Cells (Auto) 2.9 Urine Bacteria (Auto) 271.5 01/20/19 14:00 RBC 5.21 H MCV 86.0 MCHC 33.1 RDW 16.4 H MPV 8.8 Neutrophils % 70.9 D Lymphocytes % 15.7 D Monocytes % 11.9 H Eosinophils % 0.7 Basophils % 0.8 - Medications Given in the ED: ED Medications Discontinued Medications Generic Name Dose Route Start Last Admin Trade Name Freq PRN Reason Stop Dose Admin Pantoprazole Sodium 40 mg/ 100 mls @ 200 mls/hr 01/20/19 13:03 01/20/19 14:24 Sodium Chloride IVPB 01/20/19 13:32 200 mls/hr ONCE ONE Administration Ketorolac Tromethamine 30 mg 01/20/19 13:06 01/20/19 14:24 Toradol Injection - IVPUSH 01/20/19 13:07 30 mg ONCE STA Administration Ondansetron HCl 4 mg 01/20/19 13:06 01/20/19 14:24 Zofran Injection IVPUSH 01/20/19 13:07 4 mg ONCE ONE Administration Medical Decision Making - Medical Decision Making 01/20/19 19:47 patient Ultrasound and CAT scan results reviewed with patient. Incidental findings discussed. Patient has follow-up appointment with Dr. gee. Patient is encouraged to make an appointment with Dr. Benitez to follow up on the elevated LFTs. Patient is currently pain-free. Advised to eat less greasy and fatty food. *DC/Admit/Observation/Transfer Diagnosis at time of Disposition: Abdominal pain Qualifiers: Abdominal location: epigastric Qualified Code(s): R10.13 - Epigastric pain - Discharge Dispostion Disposition: HOME - Prescriptions Prescriptions: Pantoprazole Sodium [Protonix] 40 mg PO DAILY #20 tablet.dr - Referrals Referrals: Ho Gee [Primary Care Provider] - Call tomorrow Marciano Benitez MD [Staff Physician] - Call tomorrow - Patient Instructions Printed Discharge Instructions: DI for Abdominal Pain-Adult Additional Instructions: please follow up Dr. Benitez & Dr. Gee as soon as possible, take protonix As soon as possible. - Post Discharge Activity Forms/Work/School Notes: Back to Work
[2019-01-20 21:59] VITALS: BP 158/80
--- NOTE | 2019-01-21 14:53 | EKG ---
Test Reason : Blood Pressure : / mmHG Vent. Rate : 066 BPM Atrial Rate : 066 BPM P-R Int : 168 ms QRS Dur : 070 ms QT Int : 424 ms P-R-T Axes : 059 015 007 degrees QTc Int : 444 ms POOR DATA QUALITY, INTERPRETATION MAY BE ADVERSELY AFFECTED NORMAL SINUS RHYTHM POSSIBLE LEFT ATRIAL ENLARGEMENT SEPTAL INFARCT (CITED ON OR BEFORE 31-OCT-2017) ABNORMAL ECG WHEN COMPARED WITH ECG OF 07-NOV-2018 20:18, QUESTIONABLE CHANGE IN INITIAL FORCES OF SEPTAL LEADS Confirmed by MD MEL, LIZZIE ([id number]) on 01/21/2019 2:53:32 PM Referred By: Confirmed By:LIZZIE LEAL MD
== END 2019-01-20 22:01 | disposition home or self-care (01) ==
LOC: JER 12:37
PROC: 3E033GC Introduction of Other Therapeutic Substance into Peripheral Vein, Percutaneous Approach (ICD-10-PCS; principal; 2019-01-20)
PROC: 3E033GC Introduction of Other Therapeutic Substance into Peripheral Vein, Percutaneous Approach (ICD-10-PCS; 2019-01-20)
PROC: 3E0333Z Introduction of Anti-inflammatory into Peripheral Vein, Percutaneous Approach (ICD-10-PCS; 2019-01-20)
DX: R10.13 Epigastric pain (principal); R94.5 Abnormal results of liver function studies; K21.9 Gastro-esophageal reflux disease without esophagitis; I10 Essential (primary) hypertension
CPT/HCPCS: 36415; 74177-TC; 76705-TC; 80053; 81003; 83690; 85025; 87077; 87086; 93005; 93010; 96365; 96375; 99284-25

== ENCOUNTER 2019-07-11 05:57 | Inpatient (IN) | payer OTHER ==
[2019-07-11 06:35] LABS: ARTERIAL BLD GAS O2 SATURATION 97.6 % (95-98); ARTERIAL BLOOD GAS BASE EXCESS 1.8 meq/l (-2-2); ARTERIAL BLOOD GAS PCO2 43.5 mmHg (35-45); ARTERIAL BLOOD GAS PO2 114 mmHg (80-100); CARBOXYHEMOGLOBIN 1.1 % (0-2)
[2019-07-11 06:39] LABS: ALLENS TEST POSITIVE
--- NOTE | 2019-07-11 06:47 | PDOC ---
History of Present Illness - General Chief Complaint: Shortness of Breath Stated Complaint: S.O.B. - History of Present Illness Initial Comments: 58 year old female with PMH of smoking, HTN, GERD, and substance abuse ( substance free x 15 years on methadone) presenting with lightheadedness, tachycardia, and SOB since waking up a few hours a go. Patient states that she believes that she left her stove on and she felt lightheaded when waking up a few hours prior to use the bathroom. She opened her window and felt better after sticking her had out. She went to the bathroom and felt very weak so she called 911. Per EMS her house had 21 PPM of CO2 in the house so she was placed on nasal cannula and brought to us. Patient denies chest pain, nausea, vomiting , or other symptoms. 07/11/19 06:51 Past History - Past Medical History Allergies/Adverse Reactions: Allergies Allergy/AdvReac Type Severity Reaction Status Date / Time No Known Drug Allergies Allergy Verified 07/11/19 06:02 Home Medications: Ambulatory Orders Losartan Potassium 25 mg PO DAILY 04/09/14 Methadone HCl 30 mg PO DAILY 04/09/14 Pantoprazole Sodium 40 mg PO DAILY 11/07/18 Pantoprazole Sodium [Protonix] 40 mg PO DAILY #20 tablet. 01/20/19 Anemia: No Asthma: No Cancer: No Cardiac Disorders: No CVA: No COPD: No CHF: No Dementia: No Diabetes: No GI Disorders: Yes (ACID REFLUX) Disorders: No HTN: Yes Hypercholesterolemia: No Liver Disease: No Seizures: No Thyroid Disease: No - Surgical History Abdominal Surgery: No Cardiac Surgery: No Cholecystectomy: Yes (2006) Lung Surgery: No Neurologic Surgery: Yes (LUMBAR SURGERY 2014 WITH RODS) Orthopedic Surgery: Yes (L TKR 2013) - Immunization History Td Vaccination: Yes TDAP Vaccination: Yes Immunization Up to Date: No - Psycho Social/Smoking Cessation Hx Smoking History: Never smoked Have you smoked in the past 12 months: No Number of Cigarettes Smoked Daily: 7 Information on smoking cessation initiated: No 'Breaking Loose' booklet given: 10/28/17 Hx Alcohol Use: No Drug/Substance Use Hx: No Substance Use Type: None Hx Substance Use Treatment: Yes (14 YEARS AGO) Review of Systems - Review of Systems Constitutional: No: Chills, Diaphoresis, Fever, Loss of Appetite HEENTM: No: Eye Pain, Blurred Vision, Tearing Respiratory: Yes: Shortness of Breath. No: Cough, Orthopnea, Wheezing, Productive cough Cardiac (ROS): No: Chest Pain, Irregular Heart Rate, Syncope, Chest Tightness ABD/GI: No: Diarrhea, Nausea, Vomiting : No: Dysuria, Discharge, Frequency Musculoskeletal: No: Back Pain, Gout, Joint Pain Integumentary: No: Bruising, Flushing, Lesions Psychiatric: No: Anxiety, Depression Hematologic/Lymphatic: No: Anemia, Blood Clots, Easy Bleeding *Physical Exam - Vital Signs Last Vital Signs Temp Pulse Resp BP Pulse Ox 98.0 F 115 H 22 H 136/94 85 L 07/11/19 06:02 07/11/19 06:02 07/11/19 06:02 07/11/19 06:02 07/11/19 06:02 - Physical Exam General Appearance: Yes: Nourished, Appropriately Dressed. No: Apparent Distress HEENT: positive: EOMI, NED, Normal ENT Inspection, Normal Voice Neck: positive: Trachea midline, Normal Thyroid, Supple. negative: Tender, Rigid Respiratory/Chest: positive: Lungs Clear, Normal Breath Sounds. negative: Chest Tender, Respiratory Distress Cardiovascular: positive: Regular Rhythm, Tachycardia. negative: Regular Rate Gastrointestinal/Abdominal: positive: Normal Bowel Sounds, Flat, Soft. negative : Tender Lymphatic: negative: Adenopathy, Tenderness Musculoskeletal: positive: Normal Inspection. negative: Decreased Range of Motion Extremity: positive: Normal Capillary Refill, Normal Inspection, Normal Range of Motion. negative: Tender Integumentary: positive: Normal Color, Dry, Warm Neurologic: positive: Fully Oriented, Alert, Normal Mood/Affect, Normal Response , Motor Strength 5/5 ED Treatment Course - LABORATORY CBC & Chemistry Diagram: 07/11/19 06:39 - ADDITIONAL ORDERS Additional order review: Laboratory Results 07/11/19 06:27 Anticoagulation Therapy No Result Required. Puncture Site Left radial ABG pH 7.40 ABG pCO2 at Pt Temp 43.5 ABG pO2 at Pt Temp 114 H ABG HCO3 26.5 ABG O2 Sat (Measured) 97.6 ABG O2 Content 21.3 ABG Base Excess 1.8 Kosta Test Positive Carboxyhemoglobin 1.1 Methemoglobin < 1.0 O2 Delivery Device N/c Oxygen Flow Rate 5l Vent Mode No Result Required. Vent Rate No Result Required. Mechanical Rate No Result Required. Pressure Support Vent No Result Required. Medical Decision Making - Medical Decision Making 58 year old female smoker presenting with SOB and hypoxia with presumed CO poisoning via EMS. However, patient's CO was 1.1 in our ED but she was persistently tachycardic. Because of the onset of the symptoms, moderate wells score, and VS abnormalities, we will pursue a PE CT scan. Patient signed out to Dr. Domingo pending follow up. 07/11/19 06:58 Discharge - Discharge Information Problems reviewed: Yes Clinical Impression/Diagnosis: Hypoxia, SOB (shortness of breath) - Follow up/Referral Referrals: Ho Reyes [Primary Care Provider] - - Patient Discharge Instructions - Post Discharge Activity
[2019-07-11 06:55] LABS: BASO % 0.5 % (0-2.0); EOS % 1.7 % (0-4.5); HEMATOCRIT 50.2 % (32.4-45.2); HEMOGLOBIN 16.6 GM/dL (10.7-15.3); LYMPH % 24.1 % (8-40); MCH 28.4 pg (25.7-33.7); MEAN CELL VOLUME 85.8 fl (80-96); MEAN PLT VOLUME 8.8 fl (7.5-11.1); NEUT % 67.7 % (42.8-82.8); PLATELET COUNT 189 K/MM3 (134-434); RBC 5.86 M/mm3 (3.60-5.2); RDW 15.7 % (11.6-15.6); WHITE BLOOD COUNT 6.2 K/mm3 (4.0-10.0)
--- NOTE | 2019-07-11 07:14 | PDOC ---
Attending Attestation - Resident Resident Name: Rosalba Olmoskiahdiamond - ED Attending Attestation I have performed the following: I have examined & evaluated the patient, The case was reviewed & discussed with the resident, I agree w/resident's findings & plan, Exceptions are as noted - HPI HPI: 07/11/19 07:39 58F pmh HTN, GERD, on methadone, woke from sleep last night feeling dyspneic, lightheaded, with palpitations. Per EMS, Fire stated that environmental CO was elevated according to their detectors. - Physicial Exam PE: 07/11/19 07:40 Agree with exam as documented by resident - Medical Decision Making 07/11/19 07:41 Hx? suggests possible CO poisoning, moderate/high suspicion for PE, consider acs , arrythmia, infection CO 1.1 f/u labs, CTA chest 100% O2 dispo per clinical course
[2019-07-11 07:16] LABS: INR 1.08 (0.83-1.09); PROTHROMBIN TIME (PATIENT) 12.8 SEC (9.7-13.0)
[2019-07-11] MEDS ORDERED: SODIUM CHLORIDE 1,000 ML IV STA (07:31)
[2019-07-11 07:36] LABS: ALBUMIN 3.5 g/dl (3.4-5.0); BILIRUBIN,TOTAL 0.8 mg/dL (0.2-1); BLOOD UREA NITROGEN 6.3 mg/dL (7-18); CALCIUM 8.9 mg/dL (8.5-10.1); CREATININE 0.7 mg/dL (0.55-1.3); POTASSIUM 4.4 mmol/L (3.5-5.1)
--- NOTE | 2019-07-11 07:55 | PDOC ---
*Physical Exam - Vital Signs Last Vital Signs Temp Pulse Resp BP Pulse Ox 98.0 F 115 H 22 H 136/94 85 L 07/11/19 06:02 07/11/19 06:02 07/11/19 06:02 07/11/19 06:02 07/11/19 06:02 - Physical Exam 07/11/19 07:53 General Appearance: Nourished. No Apparent Distress HEENT: No Pharyngeal Erythema, Tonsillar Exudate, Tonsillar Erythema Neck: No Cervical Lymphadenopathy Respiratory/Chest: Lungs Clear, Normal Breath Sounds. No Crackles, Rales, Rhonchi, Wheezing Cardiovascular: Regular Rhythm, Regular Rate. No Murmur, Gallops, Rubs Gastrointestinal/Abdominal: Normal Bowel Sounds, Soft. No Guarding, Rebound, Tenderness Musculoskeletal: No CVA Tenderness Extremity: Normal Capillary Refill Integumentary: Normal Color, Dry, Warm Neurologic: Fully Oriented, Alert, Normal Mood/Affect, Normal Response, ED Treatment Course - LABORATORY CBC & Chemistry Diagram: 07/11/19 06:39 07/11/19 06:39 - ADDITIONAL ORDERS Additional order review: Laboratory Results 07/11/19 07/11/19 07/11/19 06:39 06:39 06:27 PT with INR 12.80 INR 1.08 Anticoagulation Therapy No Result Required. Puncture Site Left radial ABG pH 7.40 ABG pCO2 at Pt Temp 43.5 ABG pO2 at Pt Temp 114 H ABG HCO3 26.5 ABG O2 Sat (Measured) 97.6 ABG O2 Content 21.3 ABG Base Excess 1.8 Kosta Test Positive Carboxyhemoglobin 1.1 Methemoglobin < 1.0 O2 Delivery Device N/c Oxygen Flow Rate 5l Vent Mode No Result Required. Vent Rate No Result Required. Mechanical Rate No Result Required. Pressure Support Vent No Result Required. Sodium 138 Potassium 4.4 Chloride 104 Carbon Dioxide 28 Anion Gap 5 L BUN 6.3 L Creatinine 0.7 Est GFR (CKD-EPI)AfAm 109.91 Est GFR (CKD-EPI)NonAf 94.84 Random Glucose 92 Calcium 8.9 Total Bilirubin 0.8 AST 20 ALT 13 Alkaline Phosphatase 134 H Troponin I 0.34 H Total Protein 7.0 Albumin 3.5 07/11/19 06:39 RBC 5.86 H MCV 85.8 MCHC 33.0 RDW 15.7 H MPV 8.8 Neutrophils % 67.7 Lymphocytes % 24.1 D Monocytes % 6.0 Eosinophils % 1.7 D Basophils % 0.5 ED Progress Note - Progress Note Progress Note: 07/11/19 07:54 The patient is a 58 year old female who presents for evaluation of acute onset SOB and lightheadedness earlier this morning. There was concern for questionable CO exposure at home. The patient initially presented hypoxic and tachycardic with improvement on nasal canula. She is pending lab results and CTA for evaluation of PE. Medical Decision Making - Medical Decision Making 07/11/19 11:45 cbc, cmp were unremarkable. Troponin was elevated to 0.3. Chest CTA demonstrated bilateral segmental pulmonary embolism as read by our radiologist. We will start the patient on a heparin drip and the patient will require admission for further management. We discussed the case with the admitting team who accepted the patient for admission. Discharge - Discharge Information Problems reviewed: Yes Clinical Impression/Diagnosis: Hypoxia, SOB (shortness of breath) Pulmonary embolism Qualifiers: Pulmonary embolism type: unspecified Chronicity: acute Acute cor pulmonale presence: unspecified Qualified Code(s): I26.99 - Other pulmonary embolism without acute cor pulmonale - Follow up/Referral - Patient Discharge Instructions - Post Discharge Activity
[2019-07-11] MEDS ORDERED: HEPARIN NA (PORCINE) 5,000 UNITS/ML 1ML VIAL IVPUSH PRN ×2 (09:16)
[2019-07-11] MEDS ORDERED: HEPARIN NA (PORCINE) 5,000 UNITS/ML 1ML VIAL IVPUSH ONE (09:16)
[2019-07-11] MEDS ORDERED: HEPARIN INFUSION - 25,000 UNITS/500 ML INFUS.BAG IVPB ONE (09:57)
[2019-07-11] MEDS ORDERED: HEPARIN NA (PORCINE) 5,000 UNITS/ML 1ML VIAL ONE (09:57)
[2019-07-11] MEDS: HEPARIN INFUSION - 25,000 UNITS/500 ML INFUS.BAG IVPB SCH ×2 (10:15→22:20)
--- NOTE | 2019-07-11 10:34 | HP ---
<ElainaJose - Last Filed: 07/11/19 11:08> CHIEF COMPLAINT: shortness of breath PCP: HISTORY OF PRESENT ILLNESS: Patient is a 58 year old female with history of hypertension, gastro-esophageal reflux, polysubstance use disorder (snorted heroin, and cocaine; quit 15 years ago- on Methadone), non-alcoholoic steatohepatitis, presents with complaint of shortness of breath. Patient admits that this morning approx. 4AM she woke up with shortness of breath. She admitted feeling lightheaded and weak at that time , however denies chest pain or pressure, fall, or loss of consciousness. Patient denied palliative features. Per EMS, noted to have elevation of carbon monoxide in apartment. Patient admits she noticed her stove was not turned off fully (last used on prior evening). Her ABG failed to reveal any acidemia, or CO2 retention, negative for elevation of carboxyhemoglogin or methemoglobin. CTA chest revealed bilateral pulmonary emboli with involvement of upper and lower lobe branches. Negative cardiac enlargement or strain noted. Patient admits that she had left calf cramping earlier this summer that was unprovoked lasting about one week before spontaneous resolution, for which she did not seek medical follow up. She admits history of ?irregular heart rate as a child, however denies any history of anticoagulant prescription. ER course was notable for: (1) CTA chest revealed bilateral pulmonary emboli with involvement of upper and lower lobe branches. (2) EKG revealed sinus tachycardia at 104BPM. Negative S1Q3T3. Initial troponin 0.34 (3) ABG (on 5L NC): pH 7.40 -CO2 43.5 -O2 114. CO2 28. Recent Travel: PAST MEDICAL HISTORY: hypertension, gastro-esophageal reflux, polysubstance use disorder, non-alcoholoic steatohepatitis, PAST SURGICAL HISTORY: Total hysterectomy, cholecystectomy, 2x back surgeries ( for arthritis), Left knee replacement Family history -Mother: coronary artery disease, at age 42 from [place] -Father: patient does know know her father, unable to provide history. 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 Smoking: current smoker Alcohol: denies alcohol consumption Drugs: history of polysubstance use disorder. snorted heroin, and cocaine; quit 15 years ago- on Methadone Allergies No Known Drug Allergies Allergy (Verified 07/11/19 06:02) HOME MEDICATIONS: Home Medications Medication Instructions Recorded Losartan Potassium 25 mg PO DAILY 04/09/14 Methadone HCl 30 mg PO DAILY 04/09/14 Pantoprazole Sodium 40 mg PO DAILY 11/07/18 Pantoprazole Sodium [Protonix] 40 mg PO DAILY #20 tablet. 01/20/19 REVIEW OF SYSTEMS CONSTITUTIONAL: Absent: fever, chills, diaphoresis, generalized weakness, malaise, loss of appetite, weight change HEENT: Absent: rhinorrhea, nasal congestion, throat pain, throat swelling, difficulty swallowing, mouth swelling, ear pain, eye pain, visual changes CARDIOVASCULAR: Absent: chest pain, syncope, palpitations, irregular heart rate, lightheadedness , peripheral edema RESPIRATORY: Admits: shortness of breath. Absent: cough, dyspnea with exertion, orthopnea, wheezing, stridor, hemoptysis GASTROINTESTINAL: Absent: abdominal pain, abdominal distension, nausea, vomiting, diarrhea, constipation, melena, hematochezia GENITOURINARY: Absent: dysuria, frequency, urgency, hesitancy, hematuria, flank pain, genital pain MUSCULOSKELETAL: Absent: myalgia, arthralgia, joint swelling, back pain, neck pain SKIN: Absent: rash, itching, pallor HEMATOLOGIC/IMMUNOLOGIC: Absent: easy bleeding, easy bruising, lymphadenopathy, frequent infections ENDOCRINE: Absent: unexplained weight gain, unexplained weight loss, heat intolerance, cold intolerance NEUROLOGIC: Absent: headache, focal weakness or paresthesias, dizziness, unsteady gait, seizure, mental status changes, bladder or bowel incontinence PSYCHIATRIC: Absent: anxiety, depression, suicidal or homicidal ideation, hallucinations. PHYSICAL EXAMINATION Vital Signs - 24 hr 07/11/19 06:02 Temperature 98.0 F Pulse Rate 115 H Respiratory 22 H Rate Blood Pressure 136/94 O2 Sat by Pulse 85 L Oximetry (%) GENERAL: The patient is awake, alert, and fully oriented, in no acute distress. HEAD: Normocephalic, atraumatic. EYES: PERRL, extraocular movements intact, sclera anicteric, conjunctiva clear. ENT: Oropharynx clear, without erythema or exudates. Moist mucous membranes. NECK: Trachea midline, full range of motion. Supple without lymphadenopathy. LUNGS: Breath sounds equal, clear to auscultation bilaterally, no wheezes, no crackles. No accessory muscle use. HEART: Regular rate and rhythm, S1, S2 without murmur, rub or gallop. ABDOMEN: Soft, nondistended, nontender to light and deep palpation x4 quadrants , no rebound tenderness, no guarding. Normoactive bowel sounds x4 quadrants. no hepatosplenomegaly, no masses. EXTREMITIES: 2+ radial, dorsalis pedis pulses bilaterally. Warm, well-perfused. No lower extremity edema bilaterally. Negative Helen sign. Negative calf tenderness. NEUROLOGICAL: Cranial nerves II through XII grossly intact. Normal speech. No gross focal deficits. PSYCH: Normal mood, normal affect upon my encounter. SKIN: Warm, dry. Laboratory Results - last 24 hr 07/11/19 07/11/19 07/11/19 06:27 06:39 06:39 WBC 6.2 RBC 5.86 H Hgb 16.6 H Hct 50.2 H MCV 85.8 MCH 28.4 MCHC 33.0 RDW 15.7 H Plt Count 189 MPV 8.8 Absolute Neuts (auto) 4.2 Neutrophils % 67.7 Lymphocytes % 24.1 D Monocytes % 6.0 Eosinophils % 1.7 D Basophils % 0.5 Nucleated RBC % 0 PT with INR INR Anticoagulation Therapy No Result Required. Puncture Site Left radial ABG pH 7.40 ABG pCO2 at Pt Temp 43.5 ABG pO2 at Pt Temp 114 H ABG HCO3 26.5 ABG O2 Sat (Measured) 97.6 ABG O2 Content 21.3 ABG Base Excess 1.8 Kosta Test Positive Carboxyhemoglobin 1.1 Methemoglobin < 1.0 O2 Delivery Device N/c Oxygen Flow Rate 5l Vent Mode No Result Required. Vent Rate No Result Required. Mechanical Rate No Result Required. Pressure Support Vent No Result Required. Sodium 138 Potassium 4.4 Chloride 104 Carbon Dioxide 28 Anion Gap 5 L BUN 6.3 L Creatinine 0.7 Est GFR (CKD-EPI)AfAm 109.91 Est GFR (CKD-EPI)NonAf 94.84 Random Glucose 92 Calcium 8.9 Total Bilirubin 0.8 AST 20 ALT 13 Alkaline Phosphatase 134 H Troponin I 0.34 H Total Protein 7.0 Albumin 3.5 07/11/19 06:39 WBC RBC Hgb Hct MCV MCH MCHC RDW Plt Count MPV Absolute Neuts (auto) Neutrophils % Lymphocytes % Monocytes % Eosinophils % Basophils % Nucleated RBC % PT with INR 12.80 INR 1.08 Anticoagulation Therapy Puncture Site ABG pH ABG pCO2 at Pt Temp ABG pO2 at Pt Temp ABG HCO3 ABG O2 Sat (Measured) ABG O2 Content ABG Base Excess Kosta Test Carboxyhemoglobin Methemoglobin O2 Delivery Device Oxygen Flow Rate Vent Mode Vent Rate Mechanical Rate Pressure Support Vent Sodium Potassium Chloride Carbon Dioxide Anion Gap BUN Creatinine Est GFR (CKD-EPI)AfAm Est GFR (CKD-EPI)NonAf Random Glucose Calcium Total Bilirubin AST ALT Alkaline Phosphatase Troponin I Total Protein Albumin ASSESSMENT/PLAN: Patient is a 58 year old female with history of hypertension, gastro-esophageal reflux, polysubstance use disorder (on Methadone), non-alcoholoic steatohepatitis, presents with complaint of shortness of breath. Acute, submassive, bilateral pulmonary emboli -CTA chest revealed bilateral pulmonary emboli with involvement of upper and lower lobe branches. Negative cardiac enlargement or strain noted. -ABG did not reveal any acidemia, or CO2 retention, negative for elevation of carboxyhemoglogin or methemoglobin -Anticoagulation with Heparin drip initiated in ED -ICU consult requested -Cardiac transthoracic ECHO to evaluate for right heart strain -Troponin elevated at 0.35; will trend to peak. EKG reveals sinus tachycardia at 104BPM. Negative ischemic changes. Negative S1Q3T3. -Duplex US bilateral lower extremities to evaluate for DVT -Currently hemodynamically stable, on 4L nasal canula saturating well without accessory muscles of respiration. Maintain O2 > 90%. Opiate use disorder -Will confirm and reinstate Methadone (patient uses [facility]). Hypertension -Currently holding home Losartan in setting of acute PE. Currently normotensive. Monitor vitals closely. GERD -Protonix 40mg IV daily FEN -IV D5 normal saline at 75mL/ hour -Follow BMP -NPO Prophylaxis -Patient is on Heparin drip for acute PE Disposition -Currently admitted to Telemetry, pending ICU consult. Visit type - Emergency Visit Emergency Visit: Yes ED Registration Date: 07/11/19 Care time: The patient presented to the Emergency Department on the above date and was hospitalized for further evaluation of their emergent condition. - New Patient This patient is new to me today: Yes Date on this admission: 07/11/19 - Critical Care Critical Care patient: Yes Total Critical Care Time (in minutes): 35 Critical Care Statement: The care of this patient involved high complexity decision making to prevent further life threatening deterioration of the patient 's condition and/or to evaluate & treat vital organ system(s) failure or risk of failure. ATTENDING PHYSICIAN STATEMENT I saw and evaluated the patient. I reviewed the resident's note and discussed the case with the resident. I agree with the resident's findings and plan as documented. SUBJECTIVE: OBJECTIVE: ASSESSMENT AND PLAN: <Bakari Banks - Last Filed: 07/11/19 11:41> CHIEF COMPLAINT: PCP: HISTORY OF PRESENT ILLNESS: ER course was notable for: (1) (2) (3) Recent Travel: PAST MEDICAL HISTORY: PAST SURGICAL HISTORY: Social History: Smoking: Alcohol: Drugs: Allergies No Known Drug Allergies Allergy (Verified 07/11/19 06:02) HOME MEDICATIONS: Home Medications Medication Instructions Recorded Losartan Potassium 25 mg PO DAILY 04/09/14 Methadone HCl 30 mg PO DAILY 04/09/14 Pantoprazole Sodium 40 mg PO DAILY 11/07/18 Pantoprazole Sodium [Protonix] 40 mg PO DAILY #20 tablet. 01/20/19 REVIEW OF SYSTEMS CONSTITUTIONAL: Absent: fever, chills, diaphoresis, generalized weakness, malaise, loss of appetite, weight change HEENT: Absent: rhinorrhea, nasal congestion, throat pain, throat swelling, difficulty swallowing, mouth swelling, ear pain, eye pain, visual changes CARDIOVASCULAR: Absent: chest pain, syncope, palpitations, irregular heart rate, lightheadedness , peripheral edema RESPIRATORY: Absent: cough, shortness of breath, dyspnea with exertion, orthopnea, wheezing, stridor, hemoptysis GASTROINTESTINAL: Absent: abdominal pain, abdominal distension, nausea, vomiting, diarrhea, constipation, melena, hematochezia GENITOURINARY: Absent: dysuria, frequency, urgency, hesitancy, hematuria, flank pain, genital pain MUSCULOSKELETAL: Absent: myalgia, arthralgia, joint swelling, back pain, neck pain SKIN: Absent: rash, itching, pallor HEMATOLOGIC/IMMUNOLOGIC: Absent: easy bleeding, easy bruising, lymphadenopathy, frequent infections ENDOCRINE: Absent: unexplained weight gain, unexplained weight loss, heat intolerance, cold intolerance NEUROLOGIC: Absent: headache, focal weakness or paresthesias, dizziness, unsteady gait, seizure, mental status changes, bladder or bowel incontinence PSYCHIATRIC: Absent: anxiety, depression, suicidal or homicidal ideation, hallucinations. PHYSICAL EXAMINATION Vital Signs - 24 hr 12/20/19 12/20/19 06:02 10:45 Temperature 98.0 F 98.4 F Pulse Rate 115 H Pulse Rate [ 103 H Right] Respiratory 22 H 20 Rate Blood Pressure 136/94 Blood Pressure 131/84 [Left] O2 Sat by Pulse 85 L 96 Oximetry (%) GENERAL: Awake, alert, and fully oriented, in no acute distress. HEAD: Normal with no signs of trauma. EYES: Pupils equal, round and reactive to light, extraocular movements intact, sclera anicteric, conjunctiva clear. No lid lag. EARS, NOSE, THROAT: Ears normal, nares patent, oropharynx clear without exudates. Moist mucous membranes. NECK: Normal range of motion, supple without lymphadenopathy, JVD, or masses. LUNGS: Breath sounds equal, clear to auscultation bilaterally. No wheezes, and no crackles. No accessory muscle use. HEART: Regular rate and rhythm, normal S1 and S2 without murmur, rub or gallop. ABDOMEN: Soft, nontender, not distended, normoactive bowel sounds, no guarding, no rebound, no masses. No hepatomegaly or splenomegaly. MUSCULOSKELETAL: Normal range of motion at all joints. No bony deformities or tenderness. No CVA tenderness. UPPER EXTREMITIES: 2+ pulses, warm, well-perfused. No cyanosis. No clubbing. No peripheral edema. LOWER EXTREMITIES: 2+ pulses, warm, well-perfused. No calf tenderness. No peripheral edema. NEUROLOGICAL: Cranial nerves II-XII intact. Normal speech. Normal gait. PSYCHIATRIC: Cooperative. Good eye contact. Appropriate mood and affect. SKIN: Warm, dry, normal turgor, no rashes or lesions noted, normal capillary refill. Laboratory Results - last 24 hr 07/11/19 07/11/19 07/11/19 06:27 06:39 06:39 WBC 6.2 RBC 5.86 H Hgb 16.6 H Hct 50.2 H MCV 85.8 MCH 28.4 MCHC 33.0 RDW 15.7 H Plt Count 189 MPV 8.8 Absolute Neuts (auto) 4.2 Neutrophils % 67.7 Lymphocytes % 24.1 D Monocytes % 6.0 Eosinophils % 1.7 D Basophils % 0.5 Nucleated RBC % 0 PT with INR INR Anticoagulation Therapy No Result Required. Puncture Site Left radial ABG pH 7.40 ABG pCO2 at Pt Temp 43.5 ABG pO2 at Pt Temp 114 H ABG HCO3 26.5 ABG O2 Sat (Measured) 97.6 ABG O2 Content 21.3 ABG Base Excess 1.8 Kosta Test Positive Carboxyhemoglobin 1.1 Methemoglobin < 1.0 O2 Delivery Device N/c Oxygen Flow Rate 5l Vent Mode No Result Required. Vent Rate No Result Required. Mechanical Rate No Result Required. Pressure Support Vent No Result Required. Sodium 138 Potassium 4.4 Chloride 104 Carbon Dioxide 28 Anion Gap 5 L BUN 6.3 L Creatinine 0.7 Est GFR (CKD-EPI)AfAm 109.91 Est GFR (CKD-EPI)NonAf 94.84 Random Glucose 92 Calcium 8.9 Total Bilirubin 0.8 AST 20 ALT 13 Alkaline Phosphatase 134 H Troponin I 0.34 H Total Protein 7.0 Albumin 3.5 07/11/19 06:39 WBC RBC Hgb Hct MCV MCH MCHC RDW Plt Count MPV Absolute Neuts (auto) Neutrophils % Lymphocytes % Monocytes % Eosinophils % Basophils % Nucleated RBC % PT with INR 12.80 INR 1.08 Anticoagulation Therapy Puncture Site ABG pH ABG pCO2 at Pt Temp ABG pO2 at Pt Temp ABG HCO3 ABG O2 Sat (Measured) ABG O2 Content ABG Base Excess Kosta Test Carboxyhemoglobin Methemoglobin O2 Delivery Device Oxygen Flow Rate Vent Mode Vent Rate Mechanical Rate Pressure Support Vent Sodium Potassium Chloride Carbon Dioxide Anion Gap BUN Creatinine Est GFR (CKD-EPI)AfAm Est GFR (CKD-EPI)NonAf Random Glucose Calcium Total Bilirubin AST ALT Alkaline Phosphatase Troponin I Total Protein Albumin ASSESSMENT/PLAN: ATTENDING PHYSICIAN STATEMENT I saw and evaluated the patient. I reviewed the resident's note and discussed the case with the resident. I agree with the resident's findings and plan as documented.
--- NOTE | 2019-07-11 10:47 | EKG ---
Test Reason : Blood Pressure : / mmHG Vent. Rate : 104 BPM Atrial Rate : 104 BPM P-R Int : 186 ms QRS Dur : 066 ms QT Int : 358 ms P-R-T Axes : 053 005 005 degrees QTc Int : 470 ms SINUS TACHYCARDIA POSSIBLE LEFT ATRIAL ENLARGEMENT NONSPECIFIC ST ABNORMALITY ABNORMAL ECG WHEN COMPARED WITH ECG OF 20-JAN-2019 14:20, VENT. RATE HAS INCREASED BY 38 BPM CRITERIA FOR SEPTAL INFARCT ARE NO LONGER PRESENT ST NOW DEPRESSED IN ANTERIOR LEADS Confirmed by KRISTYN MATHEW MD ([id number]) on 07/11/2019 10:47:40 AM Referred By: Confirmed By:KRISTYN MATHEW MD
--- NOTE | 2019-07-11 13:19 | ECHO ---
Name: LOURDES BAKER Exam:Adult Echocardiogram Study Date: 07/11/2019 11:05 AM Age: 58 yrs Reason For Study: acute b/l pe Height: 62 in Weight: 165 lb BSA: 1.8 m2 MMode/2D Measurements & Calculations IVSd: 0.83 cm Ao root diam: 3.2 cm LVIDd: 4.3 cm LA dimension: 2.6 cm LVIDs: 2.4 cm ACS: 1.9 cm LVPWd: 0.86 cm IVSs: 1.2 cm LVPWs: 1.1 cm EDV(Teich): 81.6 ml ESV(Teich): 20.5 ml Doppler Measurements & Calculations MV E max alcon: 44.8 cm/sec Ao V2 max: 115.4 cm/sec MV A max alcon: 89.7 cm/sec Ao max P.3 mmHg MV E/A: 0.50 TR max alcon: 295.4 cm/sec Med Peak E' Alcon: 6.6 cm/sec TR max P.9 mmHg Med E/e': 6.8 Lat Peak E' Alcon: 8.1 cm/sec Lat E/e': 5.5 Left Ventricle Left ventricular systolic function is normal. Ejection Fraction = 60-65%. The transmitral spectral Do ppler flow pattern is suggestive of impaired LV relaxation. Right Ventricle The right ventricle is borderline dilated. The right ventricular systolic function is normal. Atria Normal left and right atrial size and function. Mitral Valve The mitral valve is normal in structure and function. There is no mitral valve stenosis. There is tra ce mitral regurgitation. Tricuspid Valve The tricuspid valve is normal in structure and function. There is moderate tricuspid regurgitation. R ight ventricular systolic pressure is elevated at 30-40mmHg. Aortic Valve There is mild aortic sclerosis.;. No hemodynamically significant valvular aortic stenosis. No aortic regurgitation is present. Pulmonic Valve The pulmonic valve is not well seen, but is grossly normal. There is no pulmonic valvular stenosis. T here is no pulmonic valvular regurgitation. Great Vessels The aortic root is normal size. Normal IVC size and contractility. Pericardium/Pleura There is no pericardial effusion. Interpretation Summary Left ventricular systolic function is normal. Ejection Fraction = 60-65%. The transmitral spectral Doppler flow pattern is suggestive of impaired LV relaxation. The right ventricle is borderline dilated. The right ventricular systolic function is normal. There is trace mitral regurgitation. There is moderate tricuspid regurgitation. Right ventricular systolic pressure is elevated at 30-40mmHg. There is mild aortic sclerosis.; There is no pericardial effusion. MD Garcia *Dago 07/11/2019 01:19 PM
--- NOTE | 2019-07-11 13:28 | CONSULT ---
Consultation: REQUESTING PROVIDER: Dr. Delaney CONSULT REQUEST: We have been asked to medically evaluate this patient for PE. HISTORY OF PRESENT ILLNESS: 58 y.o. PMH HTN, GERD, polysubstance abuse (heroin, cocaine-- hasnt used x 15 yrs), on methadone @ [facility], [place], chronic tobacco use presented to ED for worsening SOB which woke her up from sleep. Pt was found to have b/l upper & lower lobe pulmonary embolism on CTA chest. Started on heparin drip in ED. Upon encounter, pt was seen satting well on nasal cannula, but with mild shortness of breath however was hemodynamically stable. Admits to some lightheadedness and weakness. REVIEW OF SYSTEMS: CONSTITUTIONAL: Absent: fever, chills, diaphoresis, generalized weakness, malaise, loss of appetite, weight change HEENT: Absent: rhinorrhea, nasal congestion, throat pain, throat swelling, difficulty swallowing, mouth swelling, ear pain, eye pain, visual changes CARDIOVASCULAR: Absent: chest pain, syncope, palpitations, irregular heart rate, lightheadedness , peripheral edema RESPIRATORY: shortness of breath Absent: cough, dyspnea with exertion, orthopnea, wheezing, stridor, hemoptysis GASTROINTESTINAL: Absent: abdominal pain, abdominal distension, nausea, vomiting, diarrhea, constipation, melena, hematochezia GENITOURINARY: Absent: dysuria, frequency, urgency, hesitancy, hematuria, flank pain, genital pain MUSCULOSKELETAL: Absent: myalgia, arthralgia, joint swelling, back pain, neck pain SKIN: Absent: rash, itching, pallor HEMATOLOGIC/IMMUNOLOGIC: Absent: easy bleeding, easy bruising, lymphadenopathy, frequent infections ENDOCRINE: Absent: unexplained weight gain, unexplained weight loss, heat intolerance, cold intolerance NEUROLOGIC: dizziness Absent: headache, focal weakness or paresthesias, unsteady gait, seizure, mental status changes, bladder or bowel incontinence PSYCHIATRIC: Absent: anxiety, depression, suicidal or homicidal ideation, hallucinations. PHYSICAL EXAMINATION Vital Signs - 24 hr 07/11/19 07/11/19 06:02 10:45 Temperature 98.0 F 98.4 F Pulse Rate 115 H Pulse Rate [ 103 H Right] Respiratory 22 H 20 Rate Blood Pressure 136/94 Blood Pressure 131/84 [Left] O2 Sat by Pulse 85 L 96 Oximetry (%) GENERAL: AAOx3. HEENT: NCAT. Conjunctiva clear. LUNGS: CTA B/L. Symmetric chest rise. No accessory muscle use noted. HEART: Tachycardic, normal S1 and S2 without murmurs ABDOMEN: Soft, nontender, not distended, normoactive bowel sounds, no guarding, no rebound, no masses. MUSCULOSKELETAL: Good ROM EXTREMITIES: 2+ pulses palpated b/l UE & LE. Homans sign negative. No calf tenderness. NEUROLOGICAL: Cranial nerves II-XII intact. PSYCHIATRIC: Cooperative. Good eye contact. Appropriate mood and affect. SKIN: Warm, dry, normal turgor, no rashes or lesions noted. Laboratory Results - last 24 hr 07/11/19 07/11/19 07/11/19 06:27 06:39 06:39 WBC 6.2 RBC 5.86 H Hgb 16.6 H Hct 50.2 H MCV 85.8 MCH 28.4 MCHC 33.0 RDW 15.7 H Plt Count 189 MPV 8.8 Absolute Neuts (auto) 4.2 Neutrophils % 67.7 Lymphocytes % 24.1 D Monocytes % 6.0 Eosinophils % 1.7 D Basophils % 0.5 Nucleated RBC % 0 PT with INR INR Anticoagulation Therapy No Result Required. Puncture Site Left radial ABG pH 7.40 ABG pCO2 at Pt Temp 43.5 ABG pO2 at Pt Temp 114 H ABG HCO3 26.5 ABG O2 Sat (Measured) 97.6 ABG O2 Content 21.3 ABG Base Excess 1.8 Kosta Test Positive Carboxyhemoglobin 1.1 Methemoglobin < 1.0 O2 Delivery Device N/c Oxygen Flow Rate 5l Vent Mode No Result Required. Vent Rate No Result Required. Mechanical Rate No Result Required. Pressure Support Vent No Result Required. Sodium 138 Potassium 4.4 Chloride 104 Carbon Dioxide 28 Anion Gap 5 L BUN 6.3 L Creatinine 0.7 Est GFR (CKD-EPI)AfAm 109.91 Est GFR (CKD-EPI)NonAf 94.84 Random Glucose 92 Calcium 8.9 Total Bilirubin 0.8 AST 20 ALT 13 Alkaline Phosphatase 134 H Troponin I 0.34 H Total Protein 7.0 Albumin 3.5 07/11/19 06:39 WBC RBC Hgb Hct MCV MCH MCHC RDW Plt Count MPV Absolute Neuts (auto) Neutrophils % Lymphocytes % Monocytes % Eosinophils % Basophils % Nucleated RBC % PT with INR 12.80 INR 1.08 Anticoagulation Therapy Puncture Site ABG pH ABG pCO2 at Pt Temp ABG pO2 at Pt Temp ABG HCO3 ABG O2 Sat (Measured) ABG O2 Content ABG Base Excess Kosta Test Carboxyhemoglobin Methemoglobin O2 Delivery Device Oxygen Flow Rate Vent Mode Vent Rate Mechanical Rate Pressure Support Vent Sodium Potassium Chloride Carbon Dioxide Anion Gap BUN Creatinine Est GFR (CKD-EPI)AfAm Est GFR (CKD-EPI)NonAf Random Glucose Calcium Total Bilirubin AST ALT Alkaline Phosphatase Troponin I Total Protein Albumin Active Medications Generic Name Dose Route Start Last Admin Trade Name Freq PRN Reason Stop Dose Admin Heparin Sodium (Porcine) 3,000 unit 07/11/19 09:16 Heparin - 40 unit/kg (3000 unit) IVPUSH PRN PRN For aPTT 35 to 45 seconds Heparin Sodium (Porcine) 6,000 unit 07/11/19 09:16 Heparin - 80 unit/kg (6000 unit) IVPUSH PRN PRN aPTT <35 seconds Heparin Sodium/Dextrose 25,000 units in 500 mls @ 26.943 mls/hr 07/11/19 09: 30 07/11/19 10:15 Heparin Infusion - IVPB 18 units/kg/hr TITR WILIAN 26.943 mls/hr Administration Protocol 18 UNITS/KG/HR Dextrose/Sodium Chloride 1,000 mls @ 75 mls/hr 07/11/19 10:45 D5-Ns - IV ASDIR [facility] Methadone HCl 30 mg 07/12/19 06:00 Dolophine - PO DAILY@0600 [facility] Pantoprazole Sodium 40 mg 07/12/19 10:00 Protonix Iv IVPUSH DAILY [facility] ASSESSMENT/PLAN: 58 y.o. PMH HTN, GERD, polysubstance abuse (heroin, cocaine-- hasnt used x 15 yrs), on methadone @ [facility], [place], chronic tobacco use presenting for SOB. Patient found to have b/l upper & lower lobe submassive PE on CT chest. EKG shows sinus tachy, no S1Q3T3 noted, echo shows borderline dilated RV. Patient is normotensive & satting well on nasal cannula. Spoke w/ IR, as patient is clinically stable - no need for emergent thrombectomy/surgical management at this time. Dispo: No ICU management at this time. Continue with medical management as patient is hemodynamically stable. If clinical status necessitates ICU monitoring please re-consult. Thank you for this consultative opportunity. Visit type - Emergency Visit Emergency Visit: Yes ED Registration Date: 07/11/19 Care time: The patient presented to the Emergency Department on the above date and was hospitalized for further evaluation of their emergent condition. - New Patient This patient is new to me today: Yes Date on this admission: 07/11/19 - Critical Care Critical Care patient: No ATTENDING PHYSICIAN STATEMENT I saw and evaluated the patient. I reviewed the resident's note and discussed the case with the resident. I agree with the resident's findings and plan as documented. SUBJECTIVE: OBJECTIVE: ASSESSMENT AND PLAN:
[2019-07-11 14:00] VITALS: BMI 30.9
[2019-07-11 18:28] LABS: N-TERMINAL BNP 634.8 pg/ml (5-125)
[2019-07-11] MEDS ORDERED: ACETAMINOPHEN 325 MG TABLET (FP) PO ONE (20:58)
[2019-07-11] MEDS: DEXTROSE 5%-NORMAL SALINE 1,000 ML IV SCH (21:31)
[2019-07-12] MEDS: HEPARIN INFUSION - 25,000 UNITS/500 ML INFUS.BAG IVPB SCH ×2 (03:03→09:33)
[2019-07-12] MEDS: METHADONE HCL 10 MG TABLET PO SCH (06:23)
[2019-07-12 07:58] LABS: BASO % 0.5 % (0-2.0); EOS % 0.9 % (0-4.5); HEMATOCRIT 44.2 % (32.4-45.2); HEMOGLOBIN 14.5 GM/dL (10.7-15.3); LYMPH % 21.3 % (8-40); MCH 28.5 pg (25.7-33.7); MCHC 32.8 g/dl (32.0-36.0); MEAN CELL VOLUME 86.9 fl (80-96); MEAN PLT VOLUME 9.5 fl (7.5-11.1); MONO % 8.4 % (3.8-10.2); NEUT % 68.9 % (42.8-82.8); PLATELET COUNT 208 K/MM3 (134-434); RBC 5.09 M/mm3 (3.60-5.2); RDW 15.5 % (11.6-15.6)
[2019-07-12 08:22] LABS: ALBUMIN 3.1 g/dl (3.4-5.0); BILIRUBIN,TOTAL 0.4 mg/dL (0.2-1); BLOOD UREA NITROGEN 4.4 mg/dL (7-18); CALCIUM 8.4 mg/dL (8.5-10.1); CREATININE 0.7 mg/dL (0.55-1.3); POTASSIUM 4.4 mmol/L (3.5-5.1); TOT PROT 6.6 g/dl (6.4-8.2)
[2019-07-12 08:27] LABS: INR 1.16 (0.83-1.09); PROTHROMBIN TIME (PATIENT) 13.7 SEC (9.7-13.0)
[2019-07-12 08:29] LABS: ACTIVATED PTT 63.8 SECONDS (25.2-36.5)
[2019-07-12] MEDS: PANTOPRAZOLE SODIUM 40 MG VIAL IVPUSH SCH (09:35)
--- NOTE | 2019-07-12 09:52 | PN ---
Progress Note, Physician Chief Complaint: doing well, except unable to sleep last night, no cp, no sob, - Current Medication List Current Medications: Active Medications Heparin Sodium (Porcine) (Heparin -) 3,000 unit 40 unit/kg (3000 unit) IVPUSH PRN PRN PRN Reason: For aPTT 35 to 45 seconds Heparin Sodium (Porcine) (Heparin -) 6,000 unit 80 unit/kg (6000 unit) IVPUSH PRN PRN PRN Reason: aPTT <35 seconds Heparin Sodium/Dextrose (Heparin Infusion -) 25,000 units in 500 mls @ 26.943 mls/hr IVPB TITR WILIAN; Protocol Last Admin: 07/12/19 09:33 Dose: 13 units/kg/hr, 19.459 mls/hr Dextrose/Sodium Chloride (D5-Ns -) 1,000 mls @ 75 mls/hr IV ASDIR [facility] Last Admin: 07/11/19 21:31 Dose: 75 mls/hr Methadone HCl (Dolophine -) 30 mg PO DAILY@0600 [facility] Last Admin: 07/12/19 06:23 Dose: 30 mg Pantoprazole Sodium (Protonix Iv) 40 mg IVPUSH DAILY [facility] Last Admin: 07/12/19 09:35 Dose: 40 mg - Objective Vital Signs: Vital Signs Temperature 98.0 F 07/12/19 02:00 Pulse Rate 81 07/12/19 06:00 Respiratory Rate 20 07/12/19 06:00 Blood Pressure 125/74 07/12/19 06:00 O2 Sat by Pulse Oximetry (%) 97 07/11/19 21:00 Constitutional: Yes: Well Nourished, No Distress Eyes: Yes: Conjunctiva Clear HENT: Yes: Normocephalic Neck: Yes: Supple, Trachea Midline Cardiovascular: Yes: Regular Rate and Rhythm Respiratory: Yes: Regular, CTA Bilaterally Gastrointestinal: Yes: Normal Bowel Sounds Edema: No Neurological: Yes: WNL Labs: CBC, BMP 07/12/19 07:10 07/12/19 07:10 INR, PTT INR 1.16 (0.83-1.09) H 07/12/19 07:10 Impression/Plan Impression/Plan: Acute, submassive, bilateral pulmonary emboli -Anticoagulation with Heparin drip as per protocol -Cardiac transthoracic ECHO to evaluate for right heart strain -Troponin elevated at 0.35; will trend to peak. EKG reveals sinus tachycardia at 104BPM. Negative ischemic changes. Negative S1Q3T3. -Duplex US bilateral lower extremities to evaluate for DVT, is negative, -Currently hemodynamically stable, on 4L nasal canula saturating well without accessory muscles of respiration. Maintain O2 > 90%. # mild elevation of the AP, usg of the abd , shows postsurgical changes from chol,vs cbd dilatation, pt is asymtomatic, will observe and fu AP, if no need for the mrcp at the moment, Opiate use disorder reinstate Methadone (patient [facility]). Hypertension -Currently holding home Losartan in setting of acute PE. Currently normotensive. Monitor vitals closely. GERD -Protonix 40mg IV daily Prophylaxis -Patient is on Heparin drip for acute PE Visit type - Emergency Visit Emergency Visit: No - New Patient This patient is new to me today: Yes Date on this admission: 07/12/19 - Critical Care Critical Care patient: No - Discharge Referral Referred to [facility] Med P.C.: No
[2019-07-12] MEDS: DEXTROSE 5%-NORMAL SALINE 1,000 ML IV SCH (10:48)
--- NOTE | 2019-07-12 13:17 | PN ---
Teaching Attending Note Name of Resident: Nena Blancas ATTENDING PHYSICIAN STATEMENT I saw and evaluated the patient. I reviewed the resident's note and discussed the case with the resident. I agree with the resident's findings and plan as documented. SUBJECTIVE: Pt seen and examined on telemetry. Still with right sided chest and back pain with deep inspiration. No palpitations. RV without dysfunction on echocardiogram and no DVTs noted. OBJECTIVE: Vital Signs Period Temp Pulse Resp BP Sys/Cody Pulse Ox Last 24 Hr 98 F-98.7 F 77-89 18-22 121-129/74-87 95-97 Intake & Output 07/09/19 07/10/19 07/11/19 07/12/19 23:59 23:59 23:59 23:59 Intake Total 300 Balance 300 Weight 79.379 kg Gen: NAD at rest Heart: RRR Lung: decreased breath sounds at the bases Abd: soft, nontender Ext: no edema CBC, BMP 07/12/19 07:10 07/12/19 07:10 Active Medications Heparin Sodium (Porcine) (Heparin -) 3,000 unit 40 unit/kg (3000 unit) IVPUSH PRN PRN PRN Reason: For aPTT 35 to 45 seconds Heparin Sodium (Porcine) (Heparin -) 6,000 unit 80 unit/kg (6000 unit) IVPUSH PRN PRN PRN Reason: aPTT <35 seconds Heparin Sodium/Dextrose (Heparin Infusion -) 25,000 units in 500 mls @ 26.943 mls/hr IVPB TITR WILIAN; Protocol Last Admin: 07/12/19 09:33 Dose: 13 units/kg/hr, 19.459 mls/hr Dextrose/Sodium Chloride (D5-Ns -) 1,000 mls @ 75 mls/hr IV ASDIR [facility] Last Admin: 07/11/19 21:31 Dose: 75 mls/hr Methadone HCl (Dolophine -) 30 mg PO DAILY@0600 [facility] Last Admin: 07/12/19 06:23 Dose: 30 mg Pantoprazole Sodium (Protonix Iv) 40 mg IVPUSH DAILY [facility] Last Admin: 07/12/19 09:35 Dose: 40 mg ASSESSMENT AND PLAN: Acute Pulmonary Emboli HTN GERD Smoker - will start oral anticoagulation and overlap with heparin gtt - O2 to keep Spo2 >90% - pain control - age appropriate cancer screening as outpt - smoking cessation - would anticoagulate for at least 6 months
--- NOTE | 2019-07-12 13:58 | EKG ---
Test Reason : Blood Pressure : / mmHG Vent. Rate : 072 BPM Atrial Rate : 072 BPM P-R Int : 164 ms QRS Dur : 068 ms QT Int : 420 ms P-R-T Axes : 056 -05 003 degrees QTc Int : 459 ms NORMAL SINUS RHYTHM NORMAL ECG WHEN COMPARED WITH ECG OF 11-JUL-2019 20:06, T WAVE INVERSION NO LONGER EVIDENT IN ANTERIOR LEADS Confirmed by AICHA LEIVA MD ([id number]) on 07/12/2019 1:58:40 PM Referred By: Tiffanie VAZQUEZ Confirmed By:AICHA LEIVA MD
--- NOTE | 2019-07-12 14:11 | EKG ---
Test Reason : Blood Pressure : / mmHG Vent. Rate : 091 BPM Atrial Rate : 091 BPM P-R Int : 160 ms QRS Dur : 068 ms QT Int : 360 ms P-R-T Axes : 051 -04 011 degrees QTc Int : 442 ms POOR DATA QUALITY, INTERPRETATION MAY BE ADVERSELY AFFECTED NORMAL SINUS RHYTHM NONSPECIFIC ST AND T WAVE ABNORMALITY ABNORMAL ECG WHEN COMPARED WITH ECG OF 11-JUL-2019 07:21, T WAVE INVERSION NOW EVIDENT IN ANTERIOR LEADS Confirmed by AICHA LEIVA MD ([id number]) on 07/12/2019 2:11:13 PM Referred By: Confirmed By:AICHA LEIVA MD
[2019-07-12] MEDS: ACETAMINOPHEN 325 MG TABLET (FP) PO PRN (15:51)
[2019-07-12] MEDS ORDERED: MELATONIN 5 MG TABLETS PO ONE (21:26)
[2019-07-12] MEDS: APIXABAN 5 MG TABLET PO SCH (21:38)
[2019-07-13] MEDS: METHADONE HCL 10 MG TABLET PO SCH (06:03)
[2019-07-13 07:03] LABS: HEMATOCRIT 40.2 % (32.4-45.2); HEMOGLOBIN 13.4 GM/dL (10.7-15.3); MCH 28.6 pg (25.7-33.7); MCHC 33.3 g/dl (32.0-36.0); MEAN CELL VOLUME 85.8 fl (80-96); MEAN PLT VOLUME 9.2 fl (7.5-11.1); PLATELET COUNT 206 K/MM3 (134-434); RBC 4.68 M/mm3 (3.60-5.2); RDW 15.7 % (11.6-15.6); WHITE BLOOD COUNT 9.2 K/mm3 (4.0-10.0)
--- NOTE | 2019-07-13 09:32 | PN ---
Progress Note (short form) - Note Progress Note: Patient has no shortness of breath no chest pain no nausea vomiting she is on IV heparin seen by pulmonology yesterday and started on Eliquis and she is still on heparin. According to roller coaster designer there should be overlap between oral anticoagulation and heparin. She has no bleeding from any site and she is ambulatory she ate well no nausea vomiting fever chills diarrhea or rest of review of systems are normal. Vital Signs Period Temp Pulse Resp BP Sys/Cody Pulse Ox Last 24 Hr 97.8 F-99.8 F 73-89 18-20 111-145/70-83 96 Physical examination She looks comfortable no pain HEENT NAD neck supple negative JVD Lungs bilateral clear except the basal rales on the both sides Heart S1-S2 normal sinus rhythm on telemetry Abdomen soft nontender no organomegaly. Extremities no edema Neurological examination is non-focal and she is ambulatory. CBC, BMP 07/13/19 06:25 07/12/19 07:10 Laboratory Results - last 24 hr 07/12/19 07/12/19 07/13/19 07:10 20:30 06:25 WBC 9.2 RBC 4.68 Hgb 13.4 Hct 40.2 MCV 85.8 MCH 28.6 MCHC 33.3 RDW 15.7 H Plt Count 206 MPV 9.2 PTT (Actin FS) 54.5 H Hemoglobin A1c % 5.6 07/13/19 06:25 WBC RBC Hgb Hct MCV MCH MCHC RDW Plt Count MPV PTT (Actin FS) 66.6 H Hemoglobin A1c % Assessment and plan Acute Pulmonary Emboli HTN GERD Smoker Since she is already on Eliquis 10 mg twice a day started yesterday by roller coaster designer will wait for him today to come see the patient otherwise I will stop heparin after afternoon. We will continue high dose Eliquis for next 2 weeks followed by daily dose of 5 mg twice a day. Hypertension is controlled blood pressure is stable same medication Gastroesophageal reflux disease she is stable continue same medications Smoker discussed with her about smoking cessation and all the aids which she can get without any copayment from the pharmacy. Current Medications Acetaminophen (Tylenol -) 650 mg PO Q6H PRN PRN Reason: Fever Or Pain Last Admin: 07/12/19 15:51 Dose: 650 mg Apixaban (Eliquis -) 10 mg PO BID WILIAN Last Admin: 07/12/19 21:38 Dose: 10 mg Heparin Sodium (Porcine) (Heparin -) 3,000 unit 40 unit/kg (3000 unit) IVPUSH PRN PRN PRN Reason: For aPTT 35 to 45 seconds Heparin Sodium (Porcine) (Heparin -) 6,000 unit 80 unit/kg (6000 unit) IVPUSH PRN PRN PRN Reason: aPTT <35 seconds Heparin Sodium/Dextrose (Heparin Infusion -) 25,000 units in 500 mls @ 26.943 mls/hr IVPB TITR WILIAN; Protocol Last Admin: 07/12/19 09:33 Dose: 13 units/kg/hr, 19.459 mls/hr Dextrose/Sodium Chloride (D5-Ns -) 1,000 mls @ 75 mls/hr IV ASDIR [facility] Last Admin: 07/12/19 10:48 Dose: 75 mls/hr Methadone HCl (Dolophine -) 30 mg PO DAILY@0600 [facility] Last Admin: 07/13/19 06:03 Dose: 30 mg Pantoprazole Sodium (Protonix Iv) 40 mg IVPUSH DAILY [facility] Last Admin: 07/12/19 09:35 Dose: 40 mg Addendum 5 PM patient is seen by roller coaster designer today read his note. We will stop his heparin today because she is already on Eliquis 10 mg twice a day which is higher dose of beginning of the pulmonary embolism and DVT. Visit type - Emergency Visit Emergency Visit: Yes ED Registration Date: 07/11/19 Care time: The patient presented to the Emergency Department on the above date and was hospitalized for further evaluation of their emergent condition. - New Patient This patient is new to me today: Yes Date on this admission: 07/13/19 - Critical Care Critical Care patient: No - Discharge Referral Referred to [facility] Med P.C.: No
[2019-07-13] MEDS: ACETAMINOPHEN 325 MG TABLET (FP) PO PRN ×2 (09:33→21:09)
[2019-07-13] MEDS: PANTOPRAZOLE SODIUM 40 MG VIAL IVPUSH SCH (09:34)
[2019-07-13] MEDS: APIXABAN 5 MG TABLET PO SCH ×2 (09:34→21:09)
--- NOTE | 2019-07-13 12:05 | PN ---
Progress Note (short form) - Note Progress Note: PULMONARY Still with right sided pleuritic pain. Back pain resolved. Denies shortness of breath. Vital Signs Period Temp Pulse Resp BP Sys/Cody Pulse Ox Last 24 Hr 97.8 F-99.8 F 73-89 18-20 111-145/70-83 95-96 Gen: NAD at rest Heart: RRR Lung: decreased breath sounds at the bases Abd: soft, nontender Ext: no edema CBC, BMP 07/13/19 06:25 07/12/19 07:10 Active Medications Acetaminophen (Tylenol -) 650 mg PO Q6H PRN PRN Reason: Fever Or Pain Last Admin: 07/13/19 09:33 Dose: 650 mg Apixaban (Eliquis -) 10 mg PO BID [facility] Last Admin: 07/13/19 09:34 Dose: 10 mg Heparin Sodium (Porcine) (Heparin -) 3,000 unit 40 unit/kg (3000 unit) IVPUSH PRN PRN PRN Reason: For aPTT 35 to 45 seconds Heparin Sodium (Porcine) (Heparin -) 6,000 unit 80 unit/kg (6000 unit) IVPUSH PRN PRN PRN Reason: aPTT <35 seconds Heparin Sodium/Dextrose (Heparin Infusion -) 25,000 units in 500 mls @ 26.943 mls/hr IVPB TITR WILIAN; Protocol Last Admin: 07/12/19 09:33 Dose: 13 units/kg/hr, 19.459 mls/hr Dextrose/Sodium Chloride (D5-Ns -) 1,000 mls @ 75 mls/hr IV ASDIR [facility] Last Admin: 07/12/19 10:48 Dose: 75 mls/hr Methadone HCl (Dolophine -) 30 mg PO DAILY@0600 [facility] Last Admin: 07/13/19 06:03 Dose: 30 mg Pantoprazole Sodium (Protonix Iv) 40 mg IVPUSH DAILY [facility] Last Admin: 07/13/19 09:34 Dose: 40 mg A/P Acute Pulmonary Emboli HTN GERD Smoker - continue eliquis - can d/c heparin gtt - O2 to keep Spo2 >90% - pain control - age appropriate cancer screening as outpt - smoking cessation - would anticoagulate for at least 6 months
[2019-07-14] MEDS: METHADONE HCL 10 MG TABLET PO SCH (06:21)
[2019-07-14 06:46] LABS: HEMATOCRIT 42.6 % (32.4-45.2); MCH 28.5 pg (25.7-33.7); MCHC 32.8 g/dl (32.0-36.0); MEAN CELL VOLUME 86.8 fl (80-96); MEAN PLT VOLUME 9.3 fl (7.5-11.1); PLATELET COUNT 197 K/MM3 (134-434); RBC 4.91 M/mm3 (3.60-5.2); RDW 15.2 % (11.6-15.6); WHITE BLOOD COUNT 9.7 K/mm3 (4.0-10.0)
[2019-07-14] MEDS: PANTOPRAZOLE 40 MG TABLET (FP) PO SCH (10:00)
[2019-07-14] MEDS: APIXABAN 5 MG TABLET PO SCH ×2 (10:00→21:35)
--- NOTE | 2019-07-14 10:35 | PN ---
Progress Note, Physician History of Present Illness: pulmonary alert,c/o r sided cp,+ spangler - Current Medication List Current Medications: Active Medications Acetaminophen (Tylenol -) 650 mg PO Q6H PRN PRN Reason: Fever Or Pain Last Admin: 07/13/19 21:09 Dose: 650 mg Apixaban (Eliquis -) 10 mg PO BID [facility] Last Admin: 07/14/19 10:00 Dose: 10 mg Methadone HCl (Dolophine -) 30 mg PO DAILY@0600 [facility] Last Admin: 07/14/19 06:21 Dose: 30 mg Pantoprazole Sodium (Protonix -) 40 mg PO DAILY [facility] Last Admin: 07/14/19 10:00 Dose: 40 mg - Objective Vital Signs: Vital Signs Temperature 98.0 F 07/14/19 06:00 Pulse Rate 77 07/14/19 06:00 Respiratory Rate 20 07/14/19 06:00 Blood Pressure 121/76 07/14/19 06:00 O2 Sat by Pulse Oximetry (%) 96 07/13/19 21:00 Constitutional: Yes: Well Nourished, Calm Eyes: Yes: WNL HENT: Yes: WNL Neck: Yes: WNL Cardiovascular: Yes: Regular Rate and Rhythm, S1, S2 Respiratory: Yes: CTA Bilaterally Gastrointestinal: Yes: Normal Bowel Sounds, Soft Extremities: Yes: WNL Edema: No Labs: CBC, BMP 07/14/19 06:10 Problem List - Problems (1) Hypoxia Code(s): R09.02 - HYPOXEMIA (2) Pulmonary embolism Code(s): I26.99 - OTHER PULMONARY EMBOLISM WITHOUT ACUTE COR PULMONALE Qualifiers: Pulmonary embolism type: unspecified Chronicity: acute Acute cor pulmonale presence: unspecified Qualified Code(s): I26.99 - Other pulmonary embolism without acute cor pulmonale (3) Dyspnea Code(s): R06.00 - DYSPNEA, UNSPECIFIED Assessment/Plan A/P Acute Pulmonary Emboli HTN GERD Smoker - continue eliquis - O2 to keep Spo2 >90% - pain control - age appropriate cancer screening as outpt - smoking cessation - would anticoagulate for at least [address]
--- NOTE | 2019-07-14 11:02 | PN ---
Progress Note (short form) - Note Progress Note: Hospitalist Medicine On 2L NC 02. Very anxious, still w/ pleuritic pain, localized to R chest. Emotional support given Vitals 07/11/19 07/13/19 07/14/19 14:00 21:00 06:00 Temperature 98.2 F 98.0 F Pulse Rate 88 77 Respiratory 20 20 Rate Blood Pressure 125/85 121/76 O2 Sat by Pulse Oximetry (%) Oxygen Flow 2 Rate 07/14/19 10:48 Temperature Pulse Rate Respiratory Rate Blood Pressure O2 Sat by Pulse 95 Oximetry (%) Oxygen Flow Rate Physical Exam general: pleasant, however anxious. on 2L NC HEENT: NCAT, PERRLA neck: supple cardio: S1, S2 RRR. no r/m/g pulm: decreased BS. poor inspiratory effort. no accessory m usage abdomen: nontender, nondistended LE: 2+ pulses, no edema neuro: center lead consultant 2-12 grossly intact Laboratory Tests 07/11/19 07/11/19 07/12/19 06:39 16:35 01:00 WBC Hgb Hct Plt Count PTT (Actin FS) Total Bilirubin Alkaline Phosphatase Troponin I 0.34 H 0.92 H* 0.56 H Cholesterol Total LDL Cholesterol HDL Cholesterol 07/12/19 07/14/19 07/14/19 07:10 06:10 06:10 WBC 9.7 Hgb 14.0 Hct 42.6 Plt Count 197 PTT (Actin FS) 38.9 H Total Bilirubin 0.4 Alkaline Phosphatase 123 H Troponin I Cholesterol 271 H Total LDL Cholesterol 205 H HDL Cholesterol 47 Imaging 07/11/19 chest CTA: extensive b/l PE involving the upper and lower lobe branches. main pulmonary aa. are clear. no eviednce of coronary masses, areas of acute consolidation or pleural effusions 07/11/19 abd sono: s/p chirag as from 02/2019. CBD is mildly dilated with a 0.9cm diameter. no calculus. pancreas is obscured by overlapping bwel gas. no hydro. Has had chronic CBD dilation, was seen previously 02/2019 may be postsurgical change vs. possible distal stricture. Will need follow up MRI/MRCP or ERCP . 07/11/19: EKG: sinus tach rate 104bpm, qtc 470ms. possible LAE. ST depression ant leads 07/11/19: ECHO: LVSF normal. EF 60-65%. impaired LV relaxation. RV borderline dilated. the RVSF normal. trace MR. moderate TR. RVSP is elevated at 30-50 mmhg. mild aortic stenosis, there is no pericardial effusion. 07/11/19: duplex LE: (-) DVT 07/11/19: EKG: NSR, 90bpm rate, qtc 442ms . TWI in anterior leads 07/12/19: EKG: NSR, 72bpm, qtc 459ms. ASSESSMENT/PLAN: Patient is a 58 year old female with history of hypertension, gastro-esophageal reflux, polysubstance use disorder (on Methadone), non-alcoholic steato hepatitis, who presented with complaint of shortness of breath. Was found o have acute, submassive b/l PE. #Acute, submassive, bilateral pulmonary emboli -off hep gtt. started eliquis 07/12 -c/w eliquis 10mg BID x 7 days (09/26) then 5mg BID. Will need a/c for >6 months -hypercoaguability w/u as outpt -ECHO noted above; with RV borderline dilation -duplex LE (-) DVT -on 2L NC 02, wean as tolerated -Pulm: Dr. Ried #mild CBD dilation -was dilated to 0.9cm previously, may be chronic or 2/2 stricture -c/t follow -if asymptomatic, can have MRCP, ERCP as outpt #Opiate use disorder -c/w methadone (patient uses [facility]). #HTN- controlled -holding home Losartan in setting of acute PE. #GERD -changed to protonix 40mg PO qd (from IV) #F/E/N not req IVF at this time continue to follow lytes low na diet #PPX on eliquis #Dispo cont'd monitoring on tele anticipate d/c 24-48 hrs, will need home 02 f/u MRCP, ERCP as outpt hypercoaguability w/u as outpt <Aaliyah Schneider - Last Filed: 07/14/19 17:04> - Note Progress Note: Seen and examined; please refer to resident note for further historical information. I personally verified all kwok historical information and PE findings in addition to diagnostics and historical information. I discussed the case at length with the resident team and indicated specialists. 10 sys ROS done and negative aside from HPI VS labs imaging reviewed NAD AAO resting in bed HR wnl, +s1/2 NT ND +BS CN2-12 wnl, no fnd Lungs CTAB, w/ sym exp NT ND +BS A/P: Continuing to wean from O2; no further GI issues. Can DC if off O2. Checkign orthostatics as dizzy. Checking pre and post and checking orthostatics No GI symptoms Can FU hypercoagulability workup as OP; will need at least 6 months AC. Acute respiratory failure secondary to PE Bilateral submassive PE (Give requisition for hypercoag tests to be obtained and FU as OP. assure good PCP FU. Needs at least 6 months AC per pulm) Opioid abuse (On methadone at [facility]; continue) GERD HTN hx CBD Dilation (Known was dilated to 0.9cm previously, may be chronic or 2/2 stricture) Full Code <Lan Durham - Last Filed: 08/03/19 18:10>
[2019-07-14] MEDS: ACETAMINOPHEN 325 MG TABLET (FP) PO PRN (21:35)
[2019-07-15] MEDS: METHADONE HCL 10 MG TABLET PO SCH (06:45)
[2019-07-15 08:05] LABS: BASO % 0.6 % (0-2.0); EOS % 1.5 % (0-4.5); HEMATOCRIT 43.4 % (32.4-45.2); HEMOGLOBIN 14.4 GM/dL (10.7-15.3); LYMPH % 20.2 % (8-40); MCH 28.5 pg (25.7-33.7); MCHC 33.1 g/dl (32.0-36.0); MEAN CELL VOLUME 85.9 fl (80-96); MEAN PLT VOLUME 9.1 fl (7.5-11.1); MONO % 8.1 % (3.8-10.2); NEUT % 69.6 % (42.8-82.8); PLATELET COUNT 229 K/MM3 (134-434); RBC 5.05 M/mm3 (3.60-5.2); RDW 15.3 % (11.6-15.6); WHITE BLOOD COUNT 7.1 K/mm3 (4.0-10.0)
[2019-07-15 08:25] LABS: BLOOD UREA NITROGEN 3.4 mg/dL (7-18); CALCIUM 9.1 mg/dL (8.5-10.1); CREATININE 0.7 mg/dL (0.55-1.3); MAGNESIUM 2.6 mg/dL (1.8-2.4); PHOSPHOROUS 3.7 mg/dL (2.5-4.9)
--- NOTE | 2019-07-15 09:25 | PN ---
Progress Note, Physician History of Present Illness: pulmonary alert,still c/o R sided pleuritic cp,+ spangler - Current Medication List Current Medications: Active Medications Acetaminophen (Tylenol -) 650 mg PO Q6H PRN PRN Reason: Fever Or Pain Last Admin: 07/14/19 21:35 Dose: 650 mg Apixaban (Eliquis -) 10 mg PO BID [facility] Last Admin: 07/14/19 21:35 Dose: 10 mg Methadone HCl (Dolophine -) 30 mg PO DAILY@0600 [facility] Last Admin: 07/15/19 06:45 Dose: 30 mg Pantoprazole Sodium (Protonix -) 40 mg PO DAILY [facility] Last Admin: 07/14/19 10:00 Dose: 40 mg - Objective Vital Signs: Vital Signs Temperature 98.7 F 07/15/19 06:00 Pulse Rate 58 L 07/15/19 06:00 Respiratory Rate 20 07/15/19 06:00 Blood Pressure 143/56 L 07/15/19 06:00 O2 Sat by Pulse Oximetry (%) 94 L 07/14/19 20:27 Constitutional: Yes: Well Nourished, Calm Eyes: Yes: WNL HENT: Yes: WNL Neck: Yes: WNL Cardiovascular: Yes: Regular Rate and Rhythm, S1, S2 Respiratory: Yes: CTA Bilaterally Gastrointestinal: Yes: Normal Bowel Sounds, Soft Extremities: Yes: WNL Edema: No Labs: CBC, BMP 07/15/19 07:20 07/15/19 07:20 INR, PTT INR 1.16 (0.83-1.09) H 07/12/19 07:10 Problem List - Problems (1) Hypoxia Code(s): R09.02 - HYPOXEMIA (2) Pulmonary embolism Code(s): I26.99 - OTHER PULMONARY EMBOLISM WITHOUT ACUTE COR PULMONALE Qualifiers: Pulmonary embolism type: unspecified Chronicity: acute Acute cor pulmonale presence: unspecified Qualified Code(s): I26.99 - Other pulmonary embolism without acute cor pulmonale (3) Dyspnea Code(s): R06.00 - DYSPNEA, UNSPECIFIED Assessment/Plan A/P Acute Pulmonary Emboli HTN GERD Smoker - continue eliquis - O2 to keep Spo2 >90% - pain control - age appropriate cancer screening as outpt - smoking cessation - anticoagulate for at least 6 months - w/u for hypercoagulable state as outpatient DR LANE
[2019-07-15] MEDS: APIXABAN 5 MG TABLET PO SCH ×2 (09:26→21:40)
[2019-07-15] MEDS: PANTOPRAZOLE 40 MG TABLET (FP) PO SCH (09:26)
--- NOTE | 2019-07-15 11:20 | PN ---
Progress Note (short form) - Note Progress Note: Hospitalist Medicine On 2L NC 02. still w/ pleuritic pain, states has been dizzy ambulating out of bed. Emotional support given. Discussed home 02 with pt, expressed understanding Vitals 07/15/19 10:00 Temperature 98.7 F Pulse Rate 63 Respiratory 20 Rate Blood Pressure 134/59 L Physical Exam general: pleasant, on 2L NC HEENT: NCAT, PERRLA neck: supple cardio: S1, S2 RRR. no r/m/g pulm: decreased BS. 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 main pulmonary aa. are clear. no eviednce of coronary masses, areas of acute consolidation or pleural effusions 07/11/19 abd sono: s/p chirag as from 02/2019. CBD is mildly dilated with a 0.9cm diameter. no calculus. pancreas is obscured by overlapping bwel gas. no hydro. Has had chronic CBD dilation, was seen previously 02/2019 may be postsurgical change vs. possible distal stricture. Will need follow up MRI/MRCP or ERCP . 07/11/19: EKG: sinus tach rate 104bpm, qtc 470ms. possible LAE. ST depression ant leads 07/11/19: ECHO: LVSF normal. EF 60-65%. impaired LV relaxation. RV borderline dilated. the RVSF normal. trace MR. moderate TR. RVSP is elevated at 30-50 mmhg. mild aortic stenosis, there is no pericardial effusion. 07/11/19: duplex LE: (-) DVT 07/11/19: EKG: NSR, 90bpm rate, qtc 442ms . TWI in anterior leads 07/12/19: EKG: NSR, 72bpm, qtc 459ms. ASSESSMENT/PLAN: Patient is a 58 year old female with history of hypertension, gastro-esophageal reflux, polysubstance use disorder (on Methadone), non-alcoholic steato hepatitis, who presented with complaint of shortness of breath. Was found o have acute, submassive b/l PE. #Acute, submassive, bilateral pulmonary emboli -off hep gtt. started eliquis 07/12 -c/w eliquis 10mg BID x 7 days (10/27) then 5mg BID. Will need a/c for >6 months -hypercoaguability w/u as outpt -ECHO noted above; with RV borderline dilation -duplex LE (-) DVT -on 2L NC 02, wean as tolerated -Pulm: Dr. Reid #Dizziness -possible 2/2 anxiety, however in setting of PE, will need to be cleared -cardio consulted: Dr. Prince #mild CBD dilation -was dilated to 0.9cm previously, may be chronic or 2/2 stricture -c/t follow -if asymptomatic, can have MRCP, ERCP as outpt #Opiate use disorder -c/w methadone (patient uses [facility]). #HTN- controlled -holding home Losartan in setting of acute PE. #HLD -started on lipitor #GERD -changed to protonix 40mg PO qd (from IV) #F/E/N not req IVF at this time continue to follow lytes low na diet #PPX on eliquis #Dispo cont'd monitoring on tele anticipate d/c 24 hrs, will need home 02 . d/w pt f/u MRCP, ERCP as outpt hypercoaguability w/u as outpt <Aaliyah Schneider - Last Filed: 07/15/19 15:07> - Note Progress Note: Seen and examined; please refer to resident note for further historical information. I personally verified all kwok historical information and PE findings in addition to diagnostics and historical information. I discussed the case at length with the resident team and indicated specialists. Symptoms improved; changing to PO protonix. MRCP as OP likely. Continue eliquis and following up pulmonary recs. 10 sys ROS done and negative aside from HPI VS labs imaging reviewed NAD AAO resting in bed HR wnl, +s1/2 NT ND +BS CN2-12 wnl, no fnd Lungs CTAB, w/ sym exp NT ND +BS A/P: Continuing to wean from O2; no further GI issues. Can DC if off O2. Checkign orthostatics as dizzy. Checking pre and post and checking orthostatics No GI symptoms Can FU hypercoagulability workup as OP; will need at least 6 months AC. Acute respiratory failure secondary to PE Bilateral submassive PE (Give requisition for hypercoag tests to be obtained and FU as OP. assure good PCP FU. Needs at least 6 months AC per pulm) Opioid abuse (On methadone at [facility]; continue) GERD HTN hx CBD Dilation (Known was dilated to 0.9cm previously, may be chronic or 2/2 stricture) Full Code <Lan Durham - Last Filed: 08/03/19 18:11>
--- NOTE | 2019-07-15 17:37 | CON.CARD ---
Consult Consult Specialty:: Cardiology Reason for Consultation:: PE. SOB - History of Present Illness Chief Complaint: GILMAN History of Present Illness: This is a 58 year old female with a PMH of HTN, GERD, polysubstance abuse, and steatohepatitis. She presnts now with shortness of breath. Echocardiogram performed on 07/11/19 showed an EF of 60% - 65%, normal LV funciton, right ventricular boarderline dilated with normal function. Moderate TR and trace MR. Chest CT 07/11/19 showed evidence of extensive bilateral PE's of the upper and lower lobe branches. - Past Medical History ...LMP: 07/23/06 ...: No - Past Surgical History Past Surgical History: Yes: Joint Replacement, Cholecystectomy - Alcohol/Substance Use Hx Alcohol Use: No History of Substance Use: reports: Cocaine - Smoking History Smoking history: Current every day smoker Have you smoked in the past 12 months: Yes Aproximately how many cigarettes per day: 7 - Social History History of Recent Travel: No Home Medications - Allergies Allergies/Adverse Reactions: Allergies Allergy/AdvReac Type Severity Reaction Status Date / Time No Known Drug Allergies Allergy Verified 07/11/19 06:02 - Home Medications Home Medications: Ambulatory Orders Losartan Potassium 25 mg PO DAILY 04/09/14 Methadone HCl 30 mg PO DAILY 04/09/14 Pantoprazole Sodium [Protonix] 40 mg PO DAILY #20 tablet. 01/20/19 Metoclopramide HCl [Reglan] 10 mg PO BID 07/11/19 Oxycodone HCl/Acetaminophen [Oxycodone-Acetaminophen 10-325] 1 each PO QID PRN 07/11/19 Apixaban [Eliquis -] 10 mg PO BID #72 tablet 07/15/19 Atorvastatin Ca [Lipitor] 40 mg PO DAILY tablet 07/15/19 Methadone [Dolophine -] 30 mg PO DAILY@0600 tablet MDD 1 07/15/19 Pantoprazole Sodium [Protonix -] 40 mg PO DAILY #30 tablet.ec 07/15/19 Vital Signs: Vital Signs Temperature 98.7 F 07/15/19 10:00 Pulse Rate 70 07/15/19 15:06 Respiratory Rate 20 07/15/19 10:00 Blood Pressure 118/99 07/15/19 15:06 O2 Sat by Pulse Oximetry (%) 95 07/15/19 10:00 Constitutional: Yes: Well Nourished, No Distress HENT: Yes: WNL Neck: Yes: WNL Respiratory: Yes: CTA Bilaterally Gastrointestinal: Yes: Normal Bowel Sounds Cardiovascular: Yes: Regular Rate and Rhythm Heart Sounds: Yes: S1, S2 Extremities: Yes: WNL Neurological: Yes: Alert, Oriented - Other Data Labs, Other Data: CBC, BMP 07/15/19 07:20 07/15/19 07:20 INR, PTT INR 1.16 (0.83-1.09) H 07/12/19 07:10 Assessment/Plan 58 year old female with a PMH of HTN, GERD, polysubstance abuse, and steatohepatitis. She presnts now with shortness of breath. Echocardiogram performed on 07/11/19 showed an EF of 60% - 65%, normal LV funciton, right ventricular boarderline dilated with normal function. Moderate TR and trace MR. Chest CT 07/11/19 showed evidence of extensive bilateral PE's of the upper and lower lobe branches. Pulmonary Emboli Still has GILMAN and prefers to wear nasal O2 Would consider physical therapy to access exertion Continue AC with Eliquis: 10 mg BID x 7 days followed by 5 mg twice daily Hypercoagulable state work up Home Medication List Medication Instructions Recorded Confirmed Type Losartan Potassium 25 mg PO DAILY 04/09/14 07/11/19 History Methadone HCl 30 mg PO DAILY 04/09/14 07/11/19 History Metoclopramide HCl [Reglan] 10 mg PO BID 07/11/19 07/11/19 History Oxycodone HCl/Acetaminophen 1 each PO QID PRN 07/11/19 07/11/19 History [Oxycodone-Acetaminophen 10-325] Active Medications Generic Name Dose Route Start Last Admin Trade Name Freq PRN Reason Stop Dose Admin Acetaminophen 650 mg 07/12/19 13:44 07/14/19 21:35 Tylenol - PO 650 mg Q6H PRN Administration Fever Or Pain Apixaban 10 mg 07/12/19 22:00 07/15/19 09:26 Eliquis - PO 10 mg BID WILIAN Administration Atorvastatin Calcium 40 mg 07/15/19 22:00 Lipitor - PO HS WILIAN Methadone HCl 30 mg 07/12/19 06:00 07/15/19 06:45 Dolophine - PO 30 mg DAILY@0600 WILIAN Administration Pantoprazole Sodium 40 mg 07/14/19 10:00 07/15/19 09:26 Protonix - PO 40 mg DAILY WILIAN Administration
[2019-07-15] MEDS: ACETAMINOPHEN 325 MG TABLET (FP) PO PRN (21:40)
[2019-07-15] MEDS: ATORVASTATIN CA 40 MG TABLET (FP) PO SCH (21:40)
[2019-07-16] MEDS: METHADONE HCL 10 MG TABLET PO SCH (06:18)
[2019-07-16 07:30] LABS: BASO % 0.6 % (0-2.0); HEMATOCRIT 41.7 % (32.4-45.2); HEMOGLOBIN 13.6 GM/dL (10.7-15.3); MCH 28.3 pg (25.7-33.7); MCHC 32.5 g/dl (32.0-36.0); MEAN CELL VOLUME 87.2 fl (80-96); MEAN PLT VOLUME 9.7 fl (7.5-11.1); MONO % 8.9 % (3.8-10.2); NEUT % 64.5 % (42.8-82.8); PLATELET COUNT 245 K/MM3 (134-434); RBC 4.79 M/mm3 (3.60-5.2); RDW 15.4 % (11.6-15.6); WHITE BLOOD COUNT 7.2 K/mm3 (4.0-10.0)
[2019-07-16 07:34] LABS: BLOOD UREA NITROGEN 5.6 mg/dL (7-18); CALCIUM 8.6 mg/dL (8.5-10.1); CREATININE 0.7 mg/dL (0.55-1.3); MAGNESIUM 2.6 mg/dL (1.8-2.4); PHOSPHOROUS 3.3 mg/dL (2.5-4.9); POTASSIUM 4.5 mmol/L (3.5-5.1)
[2019-07-16] MEDS: APIXABAN 5 MG TABLET PO SCH ×2 (09:11→21:17)
[2019-07-16] MEDS: PANTOPRAZOLE 40 MG TABLET (FP) PO SCH (09:11)
--- NOTE | 2019-07-16 09:37 | PN ---
Progress Note (short form) - Note Progress Note: Hospitalist Medicine On 2L NC 02. Breathing is better. Discussed; pt does not yet have 02 at home. Would like to be taught how to use it. Discussed w/ CM Vitals 07/16/19 07/16/19 07:59 08:02 Temperature 98.8 F Pulse Rate 69 Respiratory 20 Rate Blood Pressure 108/67 O2 Sat by Pulse 95 Oximetry (%) Oxygen Flow 2 Rate Physical Exam general: pleasant, on 2L NC HEENT: NCAT, PERRLA neck: supple cardio: S1, S2 RRR. no r/m/g pulm: decreased BS. no accessory m usage abdomen: nontender, nondistended LE: 2+ pulses, no edema neuro: data governance consultant 2-12 grossly intact Laboratory Tests 07/16/19 07/16/19 06:00 06:00 WBC 7.2 Hgb 13.6 Hct 41.7 Plt Count 245 Sodium 138 Potassium 4.5 Chloride 102 Carbon Dioxide 30 BUN 5.6 L Creatinine 0.7 Magnesium 2.6 H Imaging 07/11/19 chest CTA: extensive b/l PE involving the upper and lower lobe branches. main pulmonary aa. are clear. no eviednce of coronary masses, areas of acute consolidation or pleural effusions 07/11/19 abd sono: s/p chirag as from 02/2019. CBD is mildly dilated with a 0.9cm diameter. no calculus. pancreas is obscured by overlapping bwel gas. no hydro. Has had chronic CBD dilation, was seen previously 02/2019 may be postsurgical change vs. possible distal stricture. Will need follow up MRI/MRCP or ERCP . 07/11/19: EKG: sinus tach rate 104bpm, qtc 470ms. possible LAE. ST depression ant leads 07/11/19: ECHO: LVSF normal. EF 60-65%. impaired LV relaxation. RV borderline dilated. the RVSF normal. trace MR. moderate TR. RVSP is elevated at 30-50 mmhg. mild aortic stenosis, there is no pericardial effusion. 07/11/19: duplex LE: (-) DVT 07/11/19: EKG: NSR, 90bpm rate, qtc 442ms . TWI in anterior leads 07/12/19: EKG: NSR, 72bpm, qtc 459ms. ASSESSMENT/PLAN: Patient is a 58 year old female with history of hypertension, gastro-esophageal reflux, polysubstance use disorder (on Methadone), non-alcoholic steato hepatitis, who presented with complaint of shortness of breath. Was found o have acute, submassive b/l PE. #Acute, submassive, bilateral pulmonary emboli -off hep gtt. started eliquis 07/12 -c/w eliquis 10mg BID x 7 days (11/26) then 5mg BID. Will need a/c for >6 months -hypercoaguability w/u as outpt -ECHO noted above; with RV borderline dilation -duplex LE (-) DVT -on 2L NC 02, wean as tolerated -Pulm: Dr. Reid #Dizziness -possible 2/2 anxiety -eval by cardio; no new tx needed -Cardio: Dr. Hubbard #mild CBD dilation -was dilated to 0.9cm previously, may be chronic or 2/2 stricture -c/t follow -if asymptomatic, can have MRCP, ERCP as outpt #Opiate use disorder -c/w methadone (patient uses [facility]). #HTN- controlled -holding home Losartan in setting of acute PE. #HLD -started on lipitor #GERD -changed to protonix 40mg PO qd (from IV) #F/E/N not req IVF at this time continue to follow lytes low na diet #PPX on eliquis #Dispo cont'd monitoring on tele anticipate d/c if home 02 set up; 24hrs f/u MRCP, ERCP as outpt hypercoaguability w/u as outpt <Aaliyah Schneider - Last Filed: 07/16/19 13:57> - Note Progress Note: Didn't leave secondary to no O2 delivererd to home as it is heavenly. DC order can be put in formally. Stable with no changes. Discussed with patient. her symptoms will improve with time. She did not leave yesterday secondary to ongoing presyncopal symptoms that were described as severe and persistent, worse with exertion and typical for PE. She is without any other issues now and feels well. She tells me that she is stable and has no chest pain or shortness of breath at rest but she is quite concerned about being on home O2. She has no other issues and will have home services arranged. Did not qualify for rehab. Orthostatics are negative. Agree with resident exam. <Lan Durham - Last Filed: 07/17/19 07:49>
--- NOTE | 2019-07-16 09:48 | PN ---
Progress Note, Physician History of Present Illness: PULMONARY ALERT,FEELING BETTER,LESS DYSPNEIC,LESS CP - Current Medication List Current Medications: Active Medications Acetaminophen (Tylenol -) 650 mg PO Q6H PRN PRN Reason: Fever Or Pain Last Admin: 07/15/19 21:40 Dose: 650 mg Apixaban (Eliquis -) 10 mg PO BID [facility] Last Admin: 07/16/19 09:11 Dose: 10 mg Atorvastatin Calcium (Lipitor -) 40 mg PO HS [facility] Last Admin: 07/15/19 21:40 Dose: 40 mg Methadone HCl (Dolophine -) 30 mg PO DAILY@0600 [facility] Last Admin: 07/16/19 06:18 Dose: 30 mg Pantoprazole Sodium (Protonix -) 40 mg PO DAILY [facility] Last Admin: 07/16/19 09:11 Dose: 40 mg - Objective Vital Signs: Vital Signs Temperature 98.8 F 07/16/19 07:59 Pulse Rate 69 07/16/19 07:59 Respiratory Rate 20 07/16/19 08:02 Blood Pressure 108/67 07/16/19 07:59 O2 Sat by Pulse Oximetry (%) 95 07/16/19 08:02 Constitutional: Yes: Well Nourished, Calm Eyes: Yes: WNL HENT: Yes: WNL Neck: Yes: WNL Cardiovascular: Yes: Regular Rate and Rhythm, S1, S2 Respiratory: Yes: CTA Bilaterally Gastrointestinal: Yes: Normal Bowel Sounds, Soft Extremities: Yes: WNL Edema: No Labs: CBC, BMP 07/16/19 06:00 07/16/19 06:00 INR, PTT INR 1.16 (0.83-1.09) H 07/12/19 07:10 Problem List - Problems (1) Hypoxia Code(s): R09.02 - HYPOXEMIA (2) Pulmonary embolism Code(s): I26.99 - OTHER PULMONARY EMBOLISM WITHOUT ACUTE COR PULMONALE Qualifiers: Pulmonary embolism type: unspecified Chronicity: acute Acute cor pulmonale presence: unspecified Qualified Code(s): I26.99 - Other pulmonary embolism without acute cor pulmonale (3) Dyspnea Code(s): R06.00 - DYSPNEA, UNSPECIFIED Assessment/Plan A/P Acute Pulmonary Emboli HTN GERD Smoker - eliquis - O2 to keep Spo2 >90% - pain control - age appropriate cancer screening as outpt - smoking cessation - anticoagulate for at least 6 months - w/u for hypercoagulable state as outpatient DR LANE
[2019-07-16] MEDS: ATORVASTATIN CA 40 MG TABLET (FP) PO SCH (21:17)
[2019-07-17] MEDS: METHADONE HCL 10 MG TABLET PO SCH (06:19)
[2019-07-17 06:35] LABS: BASO % 0.8 % (0-2.0); HEMATOCRIT 43.1 % (32.4-45.2); LYMPH % 26.3 % (8-40); MCH 28.1 pg (25.7-33.7); MCHC 32.5 g/dl (32.0-36.0); MEAN CELL VOLUME 86.5 fl (80-96); MEAN PLT VOLUME 8.9 fl (7.5-11.1); MONO % 7.3 % (3.8-10.2); NEUT % 63.6 % (42.8-82.8); PLATELET COUNT 282 K/MM3 (134-434); RBC 4.98 M/mm3 (3.60-5.2); RDW 15.3 % (11.6-15.6)
[2019-07-17 07:05] LABS: BLOOD UREA NITROGEN 6.7 mg/dL (7-18); CREATININE 0.6 mg/dL (0.55-1.3); MAGNESIUM 2.5 mg/dL (1.8-2.4); PHOSPHOROUS 4.2 mg/dL (2.5-4.9); POTASSIUM 4.4 mmol/L (3.5-5.1)
[2019-07-17 07:51] VITALS: BP 126/80; TEMP 98.2
[2019-07-17] MEDS: PANTOPRAZOLE 40 MG TABLET (FP) PO SCH (09:13)
[2019-07-17] MEDS: APIXABAN 5 MG TABLET PO SCH (09:13)
[2019-07-17 09:49] VITALS: PULSE 80
--- NOTE | 2019-07-17 10:18 | PN ---
Progress Note (short form) - Note Progress Note: Feels overall better. Some GILMAN but overall has improved. No CP. Desaturation to 85% on RA while ambulating. Intake & Output 07/14/19 07/15/19 07/16/19 07/17/19 23:59 23:59 23:59 23:59 Intake Total 700 520 710 Balance 700 520 710 Last Vital Signs Temp Pulse Resp BP Pulse Ox 98.2 F 80 20 126/80 95 07/17/19 07:46 07/17/19 09:27 07/17/19 07:51 07/17/19 07:46 07/17/19 09:27 Active Medications Acetaminophen (Tylenol -) 650 mg PO Q6H PRN PRN Reason: Fever Or Pain Last Admin: 07/15/19 21:40 Dose: 650 mg Apixaban (Eliquis -) 10 mg PO BID [facility] Last Admin: 07/17/19 09:13 Dose: 10 mg Atorvastatin Calcium (Lipitor -) 40 mg PO HS [facility] Last Admin: 07/16/19 21:17 Dose: 40 mg Methadone HCl (Dolophine -) 30 mg PO DAILY@0600 [facility] Last Admin: 07/17/19 06:19 Dose: 30 mg Pantoprazole Sodium (Protonix -) 40 mg PO DAILY [facility] Last Admin: 07/17/19 09:13 Dose: 40 mg Constitutional: Yes: Well Nourished, NAD Eyes: Yes: WNL HENT: Yes: WNL Neck: Yes: WNL Cardiovascular: Yes: Regular Rate and Rhythm, S1, S2 Respiratory: Yes: CTA Bilaterally Gastrointestinal: Yes: Normal Bowel Sounds, Soft Extremities: Yes: WNL Edema: No Labs: Laboratory Results - last 24 hr 07/17/19 07/17/19 07/17/19 06:11 06:11 06:11 WBC 6.0 RBC 4.98 Hgb 14.0 Hct 43.1 MCV 86.5 MCH 28.1 MCHC 32.5 RDW 15.3 Plt Count 282 MPV 8.9 Absolute Neuts (auto) 3.8 Neutrophils % 63.6 Lymphocytes % 26.3 Monocytes % 7.3 Eosinophils % 2.0 Basophils % 0.8 Nucleated RBC % 0 PTT (Actin FS) 42.6 H Sodium 139 Potassium 4.4 Chloride 102 Carbon Dioxide 32 Anion Gap 5 L BUN 6.7 L Creatinine 0.6 Est GFR (CKD-EPI)AfAm 115.63 Est GFR (CKD-EPI)NonAf 99.77 Random Glucose 87 Calcium 9.0 Phosphorus 4.2 Magnesium 2.5 H Problem List - Problems (1) Hypoxia Code(s): R09.02 - HYPOXEMIA (2) Pulmonary embolism Code(s): I26.99 - OTHER PULMONARY EMBOLISM WITHOUT ACUTE COR PULMONALE Qualifiers: Pulmonary embolism type: unspecified Chronicity: acute Acute cor pulmonale presence: unspecified Qualified Code(s): I26.99 - Other pulmonary embolism without acute cor pulmonale (3) Dyspnea Code(s): R06.00 - DYSPNEA, UNSPECIFIED Assessment/Plan Acute Pulmonary Emboli HTN GERD Smoker - Eliquis 10mg BID x 7 days then 5mg BID - Patient has qualified for home O2 - age appropriate cancer screening as outpt - smoking cessation - anticoagulate for at least 6 months - w/u for hypercoagulable state as outpatient - DC planning Dr Rodríguez
--- NOTE | 2019-07-17 10:36 | DS ---
Physical Exam: SUBJECTIVE: Patient seen and examined at bedside. On 3L 02, sat in mid 90's. Feeling better, ready to go home. OBJECTIVE: Vital Signs Period Temp Pulse Resp BP Sys/Cody Pulse Ox Last 24 Hr 98.2 F-98.9 F 61-80 20-20 117-153/60-80 95-97 PHYSICAL EXAM general: pleasant, on 2L NC HEENT: NCAT, PERRLA neck: supple cardio: S1, S2 RRR. no r/m/g pulm: decreased BS. 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 LABS Laboratory Results - last 24 hr 07/17/19 07/17/19 07/17/19 06:11 06:11 06:11 WBC 6.0 RBC 4.98 Hgb 14.0 Hct 43.1 MCV 86.5 MCH 28.1 MCHC 32.5 RDW 15.3 Plt Count 282 MPV 8.9 Absolute Neuts (auto) 3.8 Neutrophils % 63.6 Lymphocytes % 26.3 Monocytes % 7.3 Eosinophils % 2.0 Basophils % 0.8 Nucleated RBC % 0 PTT (Actin FS) 42.6 H Sodium 139 Potassium 4.4 Chloride 102 Carbon Dioxide 32 Anion Gap 5 L BUN 6.7 L Creatinine 0.6 Est GFR (CKD-EPI)AfAm 115.63 Est GFR (CKD-EPI)NonAf 99.77 Random Glucose 87 Calcium 9.0 Phosphorus 4.2 Magnesium 2.5 H 07/11/19 07/12/19 07/13/19 06:39 07:10 06:25 WBC 6.2 10.0 9.2 Hgb 16.6 H 14.5 13.4 Hct 50.2 H 44.2 40.2 Plt Count 189 208 206 07/14/19 07/15/19 07/16/19 06:10 07:20 06:00 WBC 9.7 7.1 7.2 Hgb 14.0 14.4 Hct 42.6 43.4 Plt Count 197 229 245 07/12/19 07/13/19 07/14/19 20:30 06:25 06:10 PTT (Actin FS) 54.5 H 66.6 H 38.9 H 07/15/19 07/16/19 07/17/19 07:20 06:00 06:11 PTT (Actin FS) 40.1 H 40.0 H 42.6 H 07/11/19 06:27 ABG pH 7.40 ABG pCO2 at Pt Temp 43.5 ABG pO2 at Pt Temp 114 H ABG HCO3 26.5 ABG O2 Sat (Measured) 97.6 ABG O2 Content 21.3 07/11/19 07/11/19 07/12/19 06:39 16:35 01:00 ALT Alkaline Phosphatase 134 H Troponin I 0.34 H 0.92 H* 0.56 H Albumin 07/12/19 07/12/19 07/15/19 07:10 07:10 07:20 Hemoglobin A1c % 5.6 Magnesium 2.6 H AST 14 L ALT 14 Alkaline Phosphatase 123 H Troponin I Albumin 3.1 L Triglycerides 138 Cholesterol 271 H Total LDL Cholesterol 205 H HDL Cholesterol 47 TSH 0.78 07/16/19 07/17/19 06:00 06:11 Hemoglobin A1c % Magnesium 2.6 H 2.5 H AST ALT TSH Imaging 07/11/19 chest CTA: extensive b/l PE involving the upper and lower lobe branches. main pulmonary aa. are clear. no eviednce of coronary masses, areas of acute consolidation or pleural effusions 07/11/19 abd sono: s/p chirag as from 02/2019. CBD is mildly dilated with a 0.9cm diameter. no calculus. pancreas is obscured by overlapping bwel gas. no hydro. Has had chronic CBD dilation, was seen previously 02/2019 may be postsurgical change vs. possible distal stricture. Will need follow up MRI/MRCP or ERCP . 07/11/19: EKG: sinus tach rate 104bpm, qtc 470ms. possible LAE. ST depression ant leads 07/11/19: ECHO: LVSF normal. EF 60-65%. impaired LV relaxation. RV borderline dilated. the RVSF normal. trace MR. moderate TR. RVSP is elevated at 30-50 mmhg. mild aortic stenosis, there is no pericardial effusion. 07/11/19: duplex LE: (-) DVT 07/11/19: EKG: NSR, 90bpm rate, qtc 442ms . TWI in anterior leads 07/12/19: EKG: NSR, 72bpm, qtc 459ms. HOSPITAL COURSE: Date of Admission:07/11/19 Date of Discharge: 07/17/19 Patient is a 58 year old female with history of hypertension, gastro-esophageal reflux, polysubstance use disorder (on Methadone), non-alcoholic steato hepatitis, who presented with complaint of shortness of breath. Was found o have acute, submassive b/l PE. #Acute, submassive, bilateral pulmonary emboli -off hep gtt. started eliquis 07/12 -c/w eliquis 10mg BID x 7 days (12/27); to take 10mg tonight, 10mg BID tomorrow then 5mg BID. Will need a/c for >6 months -hypercoaguability w/u as outpt. will give heme/onc referral -ECHO noted above; with RV borderline dilation -duplex LE (-) DVT -on 2L NC 02, wean as tolerated. duration tbd by pulm on d/c #Dizziness -possible 2/2 anxiety -eval by cardio; no new tx needed #mild CBD dilation -was dilated to 0.9cm previously, may be chronic or 2/2 stricture -c/t follow -if asymptomatic, can have MRCP, ERCP as outpt. d/w pt #Opiate use disorder -c/w methadone (patient uses [facility]). #HTN- controlled -can c/w losartan at home #HLD -on lipitor #GERD -c/w protonix #Dispo pt requiring home 02 on d/c f/u MRCP, ERCP as outpt hypercoaguability w/u as outpt Minutes to complete discharge: 48 <Aaliyah Schneider - Last Filed: 07/17/19 10:42> Physical Exam: Seen and examined; please see resident note for further historical information. I personally verified all kwok historical information and exam findings. Personally interpreted all imaging and diagnostics and reviewed appropriate consults. I reviewed all labs and vital signs as per resident note and EMR as documented. I agree with the above assessment and plan unless supplemented by myself in the following. 10 item review of systems completed and is negative aside from as discussed in the subjective data in my own/the resident documentation. OBJECTIVE: Vital Signs Period Temp Pulse Resp BP Sys/Cody Pulse Ox Last 24 Hr 98.2 F-98.9 F 61-80 20-20 117-153/60-80 95-97 PHYSICAL EXAM GENERAL: The patient is awake, alert, and fully oriented, in no acute distress. HEAD: Normal with no signs of trauma. EYES: PERRL, extraocular movements intact, sclera anicteric, conjunctiva clear. ENT: Ears normal, nares patent, oropharynx clear without exudates, moist mucous membranes. NECK: Trachea midline, full range of motion, supple. LUNGS: Breath sounds equal, clear to auscultation bilaterally, no wheezes, no crackles, no accessory muscle use. HEART: Regular rate and rhythm, S1, S2 without murmur, rub or gallop. ABDOMEN: Soft, nontender, nondistended, normoactive bowel sounds, no guarding, no rebound, no hepatosplenomegaly, no masses. EXTREMITIES: 2+ pulses, warm, well-perfused, no edema. NEUROLOGICAL: Cranial nerves II through XII grossly intact. Normal speech, gait not observed. PSYCH: Normal mood, normal affect. SKIN: Warm, dry, normal turgor, no rashes or lesions noted. LABS Laboratory Results - last 24 hr 07/17/19 07/17/19 07/17/19 06:11 06:11 06:11 WBC 6.0 RBC 4.98 Hgb 14.0 Hct 43.1 MCV 86.5 MCH 28.1 MCHC 32.5 RDW 15.3 Plt Count 282 MPV 8.9 Absolute Neuts (auto) 3.8 Neutrophils % 63.6 Lymphocytes % 26.3 Monocytes % 7.3 Eosinophils % 2.0 Basophils % 0.8 Nucleated RBC % 0 PTT (Actin FS) 42.6 H Sodium 139 Potassium 4.4 Chloride 102 Carbon Dioxide 32 Anion Gap 5 L BUN 6.7 L Creatinine 0.6 Est GFR (CKD-EPI)AfAm 115.63 Est GFR (CKD-EPI)NonAf 99.77 Random Glucose 87 Calcium 9.0 Phosphorus 4.2 Magnesium 2.5 H HOSPITAL COURSE: Patient was admitted to the hospital for an acute pulmonary embolism as noted on acute acute findings demonstrated on the July [address] with extensive bilateral pulmonary emboli involving the upper and lower branches. Patient was noted to have a normal LVEF with borderline RV dilation with RV SF normal and trace MR with moderate TR. RVSP was slightly elevated at 30-50. There is no pericardial effusion. Multiple EKGs were reviewed. Patient had an abdominal sonogram and is asymptomatic in terms of abdominal symptoms and follow-up with an outpatient MRCP nonurgently and potential GI follow-up, will defer to primary care if she will follow-up with them within 3 to 5 days of discharge. Patient will be finishing up her course of Eliquis and continue with her home methadone, losartan, Lipitor, and Protonix. I agree with follow-ups as indicated above <Lan Durham - Last Filed: 08/03/19 18:14> Discharge Summary Problems reviewed: Yes Reason For Visit: PULMONARY EMBOLISM Current Active Problems Hypoxia (Acute) Pulmonary embolism (Acute) SOB (shortness of breath) (Acute) - Home Medications Comprehensive Discharge Medication List: Ambulatory Orders Losartan Potassium 25 mg PO DAILY 04/09/14 Methadone HCl 30 mg PO DAILY 04/09/14 Metoclopramide HCl [Reglan] 10 mg PO BID 07/11/19 Atorvastatin Ca [Lipitor] 40 mg PO DAILY tablet 07/15/19 Methadone [Dolophine -] 30 mg PO DAILY@0600 tablet MDD 1 07/15/19 Pantoprazole Sodium [Protonix -] 40 mg PO DAILY #30 tablet.ec 07/15/19 Apixaban [Eliquis] 5 mg PO BID #60 tablet 07/17/19 Apixaban [Eliquis] 10 mg PO BID #3 tablet 07/17/19 <Aaliyah Schneider - Last Filed: 07/17/19 10:42> Current Active Problems Hypoxia (Acute) Pulmonary embolism (Acute) SOB (shortness of breath) (Acute) - Home Medications Comprehensive Discharge Medication List: Ambulatory Orders Losartan Potassium 25 mg PO DAILY 04/09/14 Methadone HCl 30 mg PO DAILY 04/09/14 Metoclopramide HCl [Reglan] 10 mg PO BID 07/11/19 Atorvastatin Ca [Lipitor] 40 mg PO DAILY tablet 07/15/19 Methadone [Dolophine -] 30 mg PO DAILY@0600 tablet MDD 1 07/15/19 Pantoprazole Sodium [Protonix -] 40 mg PO DAILY #30 tablet.ec 07/15/19 Apixaban [Eliquis] 5 mg PO BID #60 tablet 07/17/19 Apixaban [Eliquis] 10 mg PO BID #3 tablet 07/17/19 <Lan Durham - Last Filed: 08/03/19 18:14> Condition: Improved - Instructions Diet, Activity, Other Instructions: You were in the hospital because you had a clot in your lungs. It is unclear what caused this, you will need to follow up and have a work up done to determine this. You were in the hospital managed with an IV blood thinner initially, then you were transitioned to a blood thinner pill called eliquis. You improved and are being sent home. Medications 1. Please take eliquis (blood thinner) 10mg - one pill tonight (07/17), 10mg twice a day tomorrow (AM, PM) to complete a 7 day course of this dose. 2. Start on eliquis 5mg twice a day, from 07/19 onward. You will need to take this for at least 6 months. 3. Take protonix, an acid suppressant medication - 1 pill a day during this time. 4. You may continue your other home medications. Care You are being sent home on oxygen. This has been arranged for you. The duration of use will be determined by your primary care doctor and your lung doctor. You are now on a blood thinner. This means that you should watch for any bleeding in your stool or blood in vomit. If you notice either of the two, you should contact your doctor immediately. Also be careful when walking, as the blood thinner may make you more susceptible to bruising. Testing You will need to have a hypercoaguability work up to determine the cause of your clot. You may also need an ERCP/MRCP as your common bile duct was mildly dilated. Please discuss this with your primary care provider, to help you set this up. As we discussed, you have already been discussing this with them Follow up Please see the following doctors on your discharge -Dr. Reyes, your primary care doctor- this week -Dr. Reid, the lung doctor who saw you in the hospital - 1 week -Dr. Hubbard, assessment clinician - 1 week. Or you may see your home assessment clinician. -Dr. Ammy Zheng- a blood doctor (power plant electrician) - 1 week to undergo the hypercoaguability work up we discussed Referrals: Demetris Reid MD [Staff Physician] - 1 Week Dennys Hubbard MD [Staff Physician] - 1 Week Ammy Zheng MD [Staff Physician] - 1 Week Ho Reyes [Primary Care Provider] - 1 Week Disposition: VNS/HOME HEALTH CARE This patient is new to me today: No Emergency Visit: No Critical Care patient: No - Discharge Referral Referred to [facility] No <Aaliyah Schneider - Last Filed: 07/17/19 10:42> ATTENDING PHYSICIAN STATEMENT I saw and evaluated the patient. I reviewed the resident's note and discussed the case with the resident. I agree with the resident's findings and plan as documented. SUBJECTIVE: OBJECTIVE: ASSESSMENT AND PLAN: <Lan Durham - Last Filed: 08/03/19 18:14>
== END 2019-07-17 12:24 | disposition home health service (06) | DRG 134 ==
LOC: JER 05:57 → JERBED 09:16 → J4W 11:57
PROVIDERS: ADMIT Internal Medicine; ATTEND Internal Medicine
DX: I26.99 Other pulmonary embolism without acute cor pulmonale (principal); I10 Essential (primary) hypertension; J96.01 Acute respiratory failure with hypoxia; K21.9 Gastro-esophageal reflux disease without esophagitis; R00.0 Tachycardia, unspecified; F11.20 Opioid dependence, uncomplicated; K75.81 Nonalcoholic steatohepatitis (NASH); Z96.652 Presence of left artificial knee joint; Z99.81 Dependence on supplemental oxygen
CPT/HCPCS: 36415; 36600; 71275-TC; 76705-TC; 80048; 80053; 80061; 82375; 82550; 82803; 82977; 83036; 83050; 83721; 83735; 83880; 84100; 84443; 84484; 85025; 85027; 85610; 85730; 93005; 93010; 93306-TC; 93970-TC; 94761; 97116-GP; 97161-GP; 99284-25; J1644; J7030; Q9967

== ENCOUNTER 2019-08-15 09:38 | Emergency (ER) | payer OTHER ==
[2019-08-15 09:57] VITALS: BMI 30.9
[2019-08-15] MEDS ORDERED: POLYETHYLENE GLYCOL 3350 119 GM BTL PO ONE (10:20)
[2019-08-15 10:39] LABS: BASO % 0.8 % (0-2.0); EOS % 1.2 % (0-4.5); HEMATOCRIT 43.9 % (32.4-45.2); HEMOGLOBIN 14.4 GM/dL (10.7-15.3); LYMPH % 33.5 % (8-40); MCH 28.1 pg (25.7-33.7); MCHC 32.8 g/dl (32.0-36.0); MEAN CELL VOLUME 85.5 fl (80-96); MEAN PLT VOLUME 9.5 fl (7.5-11.1); MONO % 7.4 % (3.8-10.2); NEUT % 57.1 % (42.8-82.8); PLATELET COUNT 205 K/MM3 (134-434); RBC 5.13 M/mm3 (3.60-5.2); RDW 15.4 % (11.6-15.6); WHITE BLOOD COUNT 6.2 K/mm3 (4.0-10.0)
--- NOTE | 2019-08-15 10:39 | PDOC ---
History of Present Illness - General Chief Complaint: Pain, Acute Stated Complaint: ABD. PAIN Time Seen by Provider: 08/15/19 09:57 History Source: Patient Exam Limitations: Clinical Condition - History of Present Illness Initial Comments: 08/15/19 10:33 Patient with past medical history of opiate dependent on Percocet 4 times daily for the past few years for chronic back pain and methadone for opiate dependent , Eliquis for history of PE a month ago presented with complaint of 2 weeks history of intermittent aching and bloating abdominal pain which changed from different part of the abdomen and has been intermittent for 2 weeks with decreased appetite. Patient reported last bowel movement was 4 days ago and report does not always get bowel movement every day. Patient reports she was supposed to be taking Colace daily but has not been taking it. Patient reported pain as 5 out of 10 pain. Patient had multiple visit in the past for same complaint with multiple imaging including abdominal MRI and abdominal CT with negative results. Patient was referred to follow-up with GI Dr. Benitez with patient report she saw GI 3 months ago with normal exam.. Denies any other symptoms. Is this a multiple visit Asthma Patient?: No Timing/Duration: other (2 weeks) Past History - Past Medical History Allergies/Adverse Reactions: Allergies Allergy/AdvReac Type Severity Reaction Status Date / Time No Known Drug Allergies Allergy Verified 08/15/19 09:53 Home Medications: Ambulatory Orders Losartan Potassium 25 mg PO DAILY 04/09/14 Metoclopramide HCl [Reglan] 10 mg PO BID 07/11/19 Atorvastatin Ca [Lipitor] 40 mg PO DAILY tablet 07/15/19 Pantoprazole Sodium [Protonix -] 40 mg PO DAILY #30 tablet.ec 07/15/19 Apixaban [Eliquis] 5 mg PO BID #60 tablet 07/17/19 Methadone [Dolophine -] 40 mg PO DAILY@0600 MDD 1 08/15/19 Methylnaltrexone Mckinney [Relistor] 150 mg PO DAILY #10 tablet 08/15/19 Oxycodone HCl/Acetaminophen [Percocet 10-325 mg Tablet] 1 each PO QID 08/15/19 Anemia: No Asthma: No Cancer: No Cardiac Disorders: No CVA: No COPD: No CHF: No Dementia: No Diabetes: No GI Disorders: Yes (ACID REFLUX) Disorders: No HTN: Yes Hypercholesterolemia: No Liver Disease: No Seizures: No Thyroid Disease: No Other medical history: PE - Surgical History Abdominal Surgery: No Cardiac Surgery: No Cholecystectomy: Yes (2006) Lung Surgery: No Neurologic Surgery: Yes (LUMBAR SURGERY 2014 WITH RODS) Orthopedic Surgery: Yes (L TKR 2013) - Immunization History Td Vaccination: Yes TDAP Vaccination: Yes Immunization Up to Date: No - Psycho Social/Smoking Cessation Hx Smoking History: Former smoker Have you smoked in the past 12 months: Yes Number of Cigarettes Smoked Daily: 7 Information on smoking cessation initiated: No 'Breaking Loose' booklet given: 07/11/19 Hx Alcohol Use: No Drug/Substance Use Hx: No Substance Use Type: None Hx Substance Use Treatment: Yes (14 YEARS AGO) Review of Systems - Review of Systems Able to Perform ROS?: Yes Is the patient limited Martiniquais proficient: No Constitutional: No: Chills, Fever, Malaise HEENTM: No: Symptoms Reported, See HPI, Eye Pain, Blurred Vision, Tearing, Recent change in vision, Double Vision, Cataracts, Ear Pain, Ocular Prothesis, Ear Discharge, Nose Pain, Nose Congestion, Tinnitus, Nose Bleeding, Hearing Loss , Throat Pain, Throat Swelling, Mouth Pain, Dental Problems, Difficulty Swallowing, Mouth Swelling, Other Respiratory: No: Symptoms reported, See HPI, Cough, Orthopnea, Shortness of Breath, SOB with Exertion, SOB at Rest, Stridor, Wheezing, Productive cough, Hemoptysis, Other Cardiac (ROS): No: Symptoms Reported, See HPI, Chest Pain, Edema, Irregular Heart Rate, Lightheadedness, Palpitations, Syncope, Chest Tightness, Other ABD/GI: Yes: Symptoms Reported, See HPI, Constipated, Nausea (intermittent), Poor Appetite, Indigestion, Abdominal cramping (intermittent). No: Abdominal Distended, Abd. Pain w/ defecation, Blood Streaked Bowels, Diarrhea, Difficulty Swallowing, Poor Fluid Intake, Rectal Bleeding, Vomiting, Tarry Stools : No: Symptoms Reported Musculoskeletal: No: Symptoms Reported All Other Systems: Reviewed and Negative *Physical Exam - Vital Signs Last Vital Signs Temp Pulse Resp BP Pulse Ox 98.4 F 69 18 138/70 100 08/15/19 09:54 08/15/19 09:54 08/15/19 09:54 08/15/19 09:54 08/15/19 09:54 - Physical Exam 08/15/19 10:41 GENERAL: Well developed, well nourished. Awake and alert. No acute distress. HEENT: Normocephalic, atraumatic. PERRLA, EOMI. No conjunctival pallor. Sclera are non-icteric. Moist mucous membranes. Oropharynx is clear. NECK: Supple. Full ROM. CARDIOVASCULAR: Regular rate and rhythm. No murmurs, rubs, or gallops. Distal pulses are 2+ and symmetric. PULMONARY: No evidence of respiratory distress. Lungs clear to auscultation bilaterally. No wheezing, rales or rhonchi. ABDOMINAL: Soft. Non-tender. Non-distended. No rebound or guarding. No organomegaly. Normoactive bowel sounds. MUSCULOSKELETAL Normal range of motion at all joints. SKIN: Warm and dry. Normal capillary refill. No rashes. No jaundice. NEUROLOGICAL: Alert, awake, appropriate. Gait is normal without ataxia. PSYCHIATRIC: Cooperative. Good eye contact. Appropriate mood General Appearance: Yes: Nourished, Appropriately Dressed. No: Apparent Distress ED Treatment Course - LABORATORY CBC & Chemistry Diagram: 08/15/19 10:10 08/15/19 10:10 - RADIOLOGY Radiology Studies Ordered: Category Date Time Status KUB (KID UR & BLAD) [RAD] Stat Radiology 08/15/19 10:19 Ordered Medical Decision Making - Medical Decision Making 08/15/19 10:39 Patient with past medical history of opiate dependent on Percocet 4 times daily for the past few years for chronic back pain and methadone for opiate dependent , Eliquis for history of PE a month ago presented with complaint of 2 weeks history of intermittent aching and bloating abdominal pain which changed from different part of the abdomen and has been intermittent for 2 weeks with decreased appetite. Patient reported last bowel movement was 4 days ago and report does not always get bowel movement every day. Patient reports she was supposed to be taking Colace daily but has not been taking it. Patient reported pain as 5 out of 10 pain. Patient had multiple visit in the past for same complaint with multiple imaging including abdominal MRI and abdominal CT with negative results. Patient was referred to follow-up with GI Dr. Benitez with patient report she saw GI 3 months ago with normal exam.. Denies any other symptoms. Clinical exam unremarkable with no abdominal tenderness. Patient no acute distress. Decreased bowel sounds diffusely. Patient symptoms likely caused by constipation due to opiate use. CBC, CMP and lipase lab ordered to rule out acute abdominal infection. KUB x-ray of abdomen ordered to rule out obstruction given last bowel movement was 4 days ago. MiraLAX 17 g p.o. ordered for constipation 08/15/19 11:48 CBC chemistry lipase lab unremarkable. KUB abdominal x-ray shows moderate fecal with gas with no evidence of obstruction. Patient symptoms likely caused by constipation due to chronic opiate use and will be discharged home on methylnaltrexone for constipation with GI follow-up. Patient stable for discharge Discharge - Discharge Information Problems reviewed: Yes Clinical Impression/Diagnosis: Abdominal pain Qualifiers: Abdominal location: generalized Qualified Code(s): R10.84 - Generalized abdominal pain Constipation Qualifiers: Constipation type: slow transit constipation Qualified Code(s): K59.01 - Slow transit constipation Condition: Improved Disposition: HOME - Admission No - Additional Discharge Information Prescriptions: Methylnaltrexone Mckinney [Relistor] 150 mg PO DAILY #10 tablet - Follow up/Referral Referrals: Ho Reyes [Primary Care Provider] - Marciano Benitez MD [Staff Physician] - - Patient Discharge Instructions Patient Printed Discharge Instructions: DI for Constipation Additional Instructions: Your blood work is normal. Your x-ray of the abdomen shows constipation. Take prescribed medication as prescribed for abdominal discomfort and constipation. Increase fluid and fiber intake. Follow-up with Dr. Benitez GI doctor if symptoms persist for more than 4 days - Post Discharge Activity
[2019-08-15 11:09] LABS: ALBUMIN 3.5 g/dl (3.4-5.0); BILIRUBIN,TOTAL 0.5 mg/dL (0.2-1); BLOOD UREA NITROGEN 5.6 mg/dL (7-18); CALCIUM 9.3 mg/dL (8.5-10.1); CREATININE 0.8 mg/dL (0.55-1.3); POTASSIUM 3.6 mmol/L (3.5-5.1); TOT PROT 7.2 g/dl (6.4-8.2)
[2019-08-15 12:03] VITALS: BP 132/72; PULSE 73; TEMP 97.8
== END 2019-08-15 12:03 | disposition home or self-care (01) ==
LOC: SUPCPDRO 09:38 → JER 09:38
DX: R10.84 Generalized abdominal pain (principal); K59.01 Slow transit constipation; F11.20 Opioid dependence, uncomplicated; G89.29 Other chronic pain
CPT/HCPCS: 36415; 74018-TC-FY; 80053; 83690; 85025; 99282-25

== ENCOUNTER 2020-07-07 10:05 | Emergency (ER) | payer OTHER ==
[2020-07-07 10:11] VITALS: BMI 30.1
[2020-07-07] MEDS ORDERED: SODIUM CHLORIDE 1,000 ML IV STA (11:12)
[2020-07-07] MEDS ORDERED: ONDANSETRON 4 MG/2 ML VIAL IVPB ONE (11:12)
[2020-07-07 11:24] LABS: EOS % 0.8 % (0-4.5); HEMATOCRIT 45.8 % (32.4-45.2); HEMOGLOBIN 15.4 GM/dL (10.7-15.3); LYMPH % 34.6 % (8-40); MCH 28.4 pg (25.7-33.7); MCHC 33.5 g/dl (32.0-36.0); MEAN CELL VOLUME 84.7 fl (80-96); MEAN PLT VOLUME 8.4 fl (7.5-11.1); MONO % 5.9 % (3.8-10.2); NEUT % 57.7 % (42.8-82.8); PLATELET COUNT 318 K/MM3 (134-434); RBC 5.41 M/mm3 (3.60-5.2); RDW 16.1 % (11.6-15.6); WHITE BLOOD COUNT 6.5 K/mm3 (4.0-10.0)
[2020-07-07] MEDS ORDERED: ONDANSETRON 4 MG/2 ML VIAL ONE (11:27)
[2020-07-07 11:46] LABS: CHLORIDE 103 mmol/L (98-107); POTASSIUM 4.6 mmol/L (3.5-5.1); SODIUM 138 mmol/L (136-145)
[2020-07-07 11:48] LABS: ALBUMIN 3.7 g/dl (3.4-5.0); ANION GAP 8 MMOL/L (8-16); BLOOD UREA NITROGEN 5.4 mg/dL (7-18); CALCIUM 8.8 mg/dL (8.5-10.1); CO2 26 mmol/L (21-32); LIPASE 142 U/L (73-393)
[2020-07-07 11:49] LABS: GLUCOSE,RANDOM 69 mg/dL (74-106)
[2020-07-07 11:51] LABS: CREATININE 0.6 mg/dL (0.55-1.3); SGOT/AST 20 U/L (15-37); SGPT/ALT 12 U/L (13-61)
[2020-07-07 11:53] LABS: BILIRUBIN,TOTAL 0.5 mg/dL (0.2-1); TOT PROT 7.4 g/dl (6.4-8.2)
[2020-07-07 11:54] LABS: ALK PHOS 119 U/L (45-117)
[2020-07-07 14:11] VITALS: BP 147/71; PULSE 68; TEMP 98.4
== END 2020-07-07 14:41 | disposition home or self-care (01) ==
LOC: JER 10:05
PROC: 3E033NZ Introduction of Analgesics, Hypnotics, Sedatives into Peripheral Vein, Percutaneous Approach (ICD-10-PCS; principal; 2020-07-07)
PROC: 3E0337Z Introduction of Electrolytic and Water Balance Substance into Peripheral Vein, Percutaneous Approach (ICD-10-PCS; 2020-07-07)
DX: R11.2 Nausea with vomiting, unspecified (principal)
CPT/HCPCS: 36415; 74177-TC; 80053; 82550; 83690; 84484; 85025; 93005; 93010; 99285-25; Q9967

== ENCOUNTER 2020-08-25 09:57 | Emergency (ER) | payer OTHER ==
[2020-08-25] MEDS ORDERED: SODIUM CHLORIDE 1,000 ML IV STA (11:50)
[2020-08-25] MEDS ORDERED: ONDANSETRON 4 MG/2 ML VIAL IVPUSH ONE (11:50)
[2020-08-25] MEDS ORDERED: ONDANSETRON 4 MG/2 ML VIAL ONE (12:29)
[2020-08-25] MEDS ORDERED: FAMOTIDINE 20 MG/50 ML IVPB 20 MG/50 ML MG IVPB ONE ×2 (13:08→13:18)
[2020-08-25 13:24] LABS: BASO % 0.4 % (0-2.0); EOS % 0.4 % (0-4.5); HEMATOCRIT 49.3 % (32.4-45.2); HEMOGLOBIN 16.5 GM/dL (10.7-15.3); LYMPH % 22.4 % (8-40); MCH 28.8 pg (25.7-33.7); MCHC 33.5 g/dl (32.0-36.0); MEAN PLT VOLUME 9.8 fl (7.5-11.1); NEUT % 69.8 % (42.8-82.8); PLATELET COUNT 261 K/MM3 (134-434); RBC 5.73 M/mm3 (3.60-5.2); RDW 16.8 % (11.6-15.6); WHITE BLOOD COUNT 6.7 K/mm3 (4.0-10.0)
[2020-08-25 13:26] LABS: INR 1.21 (0.83-1.09); PROTHROMBIN TIME (PATIENT) 14.8 SEC (9.7-13.0)
[2020-08-25 13:46] LABS: CHLORIDE 106 mmol/L (98-107); POTASSIUM 3.9 mmol/L (3.5-5.1); SODIUM 142 mmol/L (136-145)
[2020-08-25 13:47] LABS: CALCIUM 8.9 mg/dL (8.5-10.1)
[2020-08-25 13:48] LABS: ALBUMIN 3.9 g/dl (3.4-5.0); ANION GAP 14 MMOL/L (8-16); BLOOD UREA NITROGEN 7.2 mg/dL (7-18); CO2 23 mmol/L (21-32); LIPASE 89 U/L (73-393); MAGNESIUM 2.2 mg/dL (1.8-2.4)
[2020-08-25 13:51] LABS: CREATININE 0.7 mg/dL (0.55-1.3); SGOT/AST 15 U/L (15-37); SGPT/ALT 11 U/L (13-61)
[2020-08-25 13:52] LABS: BILIRUBIN,TOTAL 0.7 mg/dL (0.2-1)
[2020-08-25 13:54] LABS: ALK PHOS 117 U/L (45-117); TOT PROT 7.7 g/dl (6.4-8.2)
[2020-08-25 14:19] LABS: GLUCOSE,RANDOM 38 mg/dL (74-106)
[2020-08-25] MEDS ORDERED: DEXTROSE 50%-WATER - 25 GM/50 ML VIAL IVPUSH ONE (14:19)
[2020-08-25] MEDS ORDERED: DEXTROSE 50%-WATER 25 GM/50 ML DISP.SYRIN ONE ×2 (14:28→14:29)
[2020-08-25] MEDS ORDERED: LACTATED RINGERS SOLUTION 1,000 ML/1,000 ML INFUS.BAG IV STA (14:34)
[2020-08-25 15:47] LABS: PH,URINE 5.5 (5.0-8.0); URINE APPEARANCE CLEAR; URINE BILIRUBIN NEGATIVE (NEGATIVE); URINE COLOR YELLOW; URINE GLUCOSE (UA) NEGATIVE (NEGATIVE); URINE KETONE 4+ (NEGATIVE); URINE LEUK ESTERASE NEGATIVE (NEGATIVE); URINE NITRITE NEGATIVE (NEGATIVE); URINE PROTEIN TRACE (NEGATIVE)
[2020-08-25 16:46] VITALS: BP 116/68; PULSE 75; TEMP 97.7
== END 2020-08-25 17:01 | disposition home or self-care (01) ==
LOC: JER 09:57
PROC: 3E033GC Introduction of Other Therapeutic Substance into Peripheral Vein, Percutaneous Approach (ICD-10-PCS; principal; 2020-08-25)
PROC: 3E033GC Introduction of Other Therapeutic Substance into Peripheral Vein, Percutaneous Approach (ICD-10-PCS; 2020-08-25)
PROC: 3E033GC Introduction of Other Therapeutic Substance into Peripheral Vein, Percutaneous Approach (ICD-10-PCS; 2020-08-25)
PROC: 3E0337Z Introduction of Electrolytic and Water Balance Substance into Peripheral Vein, Percutaneous Approach (ICD-10-PCS; 2020-08-25)
DX: R11.2 Nausea with vomiting, unspecified (principal); E86.0 Dehydration
CPT/HCPCS: 36415; 71045-TC-FY; 80053; 81003; 82550; 82962; 83605; 83690; 83735; 84484; 85025; 85610; 87040; 87086; 93005; 93010; 99285-25; C9803; U0003

== ENCOUNTER 2020-08-27 16:42 | Emergency (ER) | payer OTHER ==
[2020-08-27 16:57] VITALS: TEMP 98.3; BMI 30.4
[2020-08-27] MEDS ORDERED: FAMOTIDINE 20 MG/50 ML IVPB 20 MG/50 ML MG IVPB ONE ×2 (17:36→17:46)
[2020-08-27] MEDS ORDERED: ONDANSETRON 4 MG/2 ML VIAL IVPUSH ONE (17:36)
[2020-08-27] MEDS ORDERED: ACETAMINOPHEN 325 MG TABLET (FP) PO ONE (17:36)
[2020-08-27] MEDS ORDERED: SODIUM CHLORIDE 1,000 ML IV STA (17:36)
[2020-08-27] MEDS ORDERED: ONDANSETRON 4 MG/2 ML VIAL ONE (17:46)
[2020-08-27] MEDS ORDERED: ACETAMINOPHEN 325 MG TABLET (FP) ONE (17:46)
[2020-08-27 18:34] LABS: BASO % 0.7 % (0-2.0); EOS % 1.9 % (0-4.5); HEMATOCRIT 45.5 % (32.4-45.2); HEMOGLOBIN 15.2 GM/dL (10.7-15.3); LYMPH % 34.5 % (8-40); MCH 28.5 pg (25.7-33.7); MCHC 33.4 g/dl (32.0-36.0); MEAN CELL VOLUME 85.1 fl (80-96); MEAN PLT VOLUME 9.2 fl (7.5-11.1); MONO % 6.3 % (3.8-10.2); NEUT % 56.6 % (42.8-82.8); PLATELET COUNT 230 K/MM3 (134-434); RBC 5.35 M/mm3 (3.60-5.2); RDW 16.7 % (11.6-15.6)
[2020-08-27 18:43] LABS: POTASSIUM 3.4 mmol/L (3.5-5.1)
[2020-08-27 18:44] LABS: CALCIUM 8.6 mg/dL (8.5-10.1)
[2020-08-27 18:45] LABS: ALBUMIN 3.5 g/dl (3.4-5.0)
[2020-08-27 18:47] LABS: CREATININE 0.6 mg/dL (0.55-1.3)
[2020-08-27 18:49] LABS: BILIRUBIN,TOTAL 0.6 mg/dL (0.2-1); TOT PROT 6.9 g/dl (6.4-8.2)
[2020-08-27 18:57] LABS: BLOOD UREA NITROGEN 2.9 mg/dL (7-18)
[2020-08-27] MEDS ORDERED: MAG HYDROX/AL HYDROX/SIMETH 30 ML UNIT-DOSE CUP PO ONE (19:51)
[2020-08-27] MEDS ORDERED: METOCLOPRAMIDE HCL INJECTION 10 MG/2 ML VIAL IVPUSH ONE (20:13)
[2020-08-27] MEDS ORDERED: MAG HYDROX/AL HYDROX/SIMETH 30 ML UNIT-DOSE CUP ONE (20:28)
[2020-08-27] MEDS ORDERED: METOCLOPRAMIDE HCL INJECTION 10 MG/2 ML VIAL ONE (20:28)
[2020-08-27 21:16] VITALS: BP 137/89; PULSE 90
[2020-08-27 21:19] LABS: URINE APPEARANCE CLOUDY; URINE BILIRUBIN NEGATIVE (NEGATIVE); URINE COLOR YELLOW; URINE GLUCOSE (UA) NEGATIVE (NEGATIVE); URINE KETONE 2+ (NEGATIVE); URINE LEUK ESTERASE NEGATIVE (NEGATIVE); URINE NITRITE NEGATIVE (NEGATIVE); URINE PROTEIN NEGATIVE (NEGATIVE)
[2020-08-27] MEDS ORDERED: SODIUM CHLORIDE 0.9% 500 ML INFUS.BAG IV ONE (21:24)
[2020-08-27] MEDS ORDERED: CIPROFLOXACIN 400 MG/D5W 400 MG/200 ML IVPB IVPB ONE (22:58)
== END 2020-08-28 01:18 | disposition home or self-care (01) ==
LOC: JER 16:42
PROC: 3E03329 Introduction of Other Anti-infective into Peripheral Vein, Percutaneous Approach (ICD-10-PCS; principal; 2020-08-27)
PROC: 3E033NZ Introduction of Analgesics, Hypnotics, Sedatives into Peripheral Vein, Percutaneous Approach (ICD-10-PCS; 2020-08-27)
PROC: 3E033GC Introduction of Other Therapeutic Substance into Peripheral Vein, Percutaneous Approach (ICD-10-PCS; 2020-08-27)
PROC: 3E0337Z Introduction of Electrolytic and Water Balance Substance into Peripheral Vein, Percutaneous Approach (ICD-10-PCS; 2020-08-27)
DX: K52.9 Noninfective gastroenteritis and colitis, unspecified (principal)
CPT/HCPCS: 36415; 71046-TC-FY; 74177-TC; 80053; 81003; 82550; 82962; 83690; 84484; 85025; 87086; 87186; 93005; 93010; 99285-25; Q9967

== ENCOUNTER 2020-08-31 07:53 | Inpatient (IN) | payer OTHER ==
[2020-08-31] MEDS ORDERED: SODIUM CHLORIDE 0.9% 500 ML INFUS.BAG IV ONE ×3 (09:09→14:37)
[2020-08-31] MEDS ORDERED: FAMOTIDINE 20 MG/50 ML IVPB 20 MG/50 ML MG IVPB ONE ×2 (09:10→10:10)
[2020-08-31] MEDS ORDERED: ONDANSETRON 4 MG/2 ML VIAL IVPUSH ONE ×2 (09:10→12:45)
[2020-08-31] MEDS ORDERED: ONDANSETRON 4 MG/2 ML VIAL ONE (10:10)
[2020-08-31 11:42] LABS: BASO % 0.6 % (0-2.0); EOS % 1.3 % (0-4.5); HEMATOCRIT 46.9 % (32.4-45.2); HEMOGLOBIN 15.5 GM/dL (10.7-15.3); LYMPH % 28.7 % (8-40); MCH 28.2 pg (25.7-33.7); MEAN CELL VOLUME 85.6 fl (80-96); MEAN PLT VOLUME 9.6 fl (7.5-11.1); MONO % 8.9 % (3.8-10.2); NEUT % 60.5 % (42.8-82.8); PLATELET COUNT 273 K/MM3 (134-434); RBC 5.49 M/mm3 (3.60-5.2); RDW 16.7 % (11.6-15.6)
[2020-08-31 12:09] LABS: POTASSIUM 3.8 mmol/L (3.5-5.1)
[2020-08-31 12:11] LABS: ALBUMIN 3.6 g/dl (3.4-5.0); CALCIUM 8.9 mg/dL (8.5-10.1)
[2020-08-31 12:15] LABS: CREATININE 0.7 mg/dL (0.55-1.3)
[2020-08-31 12:16] LABS: BILIRUBIN,TOTAL 0.4 mg/dL (0.2-1); TOT PROT 7.1 g/dl (6.4-8.2)
[2020-08-31 14:08] LABS: EPI CELLS >36 /uL (0-25.1); HYALINE CASTS 66 /uL (0-3.1); PH,URINE 5.5 (5.0-8.0); URINE APPEARANCE CLOUDY; URINE BACTERIA 6529 /uL (0-1359); URINE BILIRUBIN NEGATIVE (NEGATIVE); URINE COLOR YELLOW; URINE GLUCOSE (UA) NEGATIVE (NEGATIVE); URINE KETONE 4+ (NEGATIVE); URINE LEUK ESTERASE 1+ (NEGATIVE); URINE NITRITE NEGATIVE (NEGATIVE); URINE PROTEIN TRACE (NEGATIVE); URINE RBC 29 /uL (0-23.9); URINE WBC 176 /uL (0-25.8)
[2020-08-31] MEDS ORDERED: METOCLOPRAMIDE HCL INJECTION 10 MG/2 ML VIAL IVPUSH ONE (14:37)
[2020-08-31] MEDS ORDERED: METOCLOPRAMIDE HCL INJECTION 10 MG/2 ML VIAL ONE (14:44)
[2020-08-31] MEDS ORDERED: CEFTRIAXONE 1,000 MG in DEXTROSE 5%-WATER - 50 ML IVPB ONE (16:59)
[2020-08-31] MEDS ORDERED: CEFTRIAXONE 1 GM/50 ML BAG ONE (17:10)
[2020-08-31] MEDS ORDERED: LACTATED RINGERS SOLUTION 1,000 ML/1,000 ML INFUS.BAG IV SCH (17:45)
[2020-08-31] MEDS ORDERED: DEXTROSE 50%-WATER - 25 GM/50 ML VIAL IVPUSH ONE (17:46)
[2020-08-31] MEDS ORDERED: DEXTROSE 50%-WATER 25 GM/50 ML DISP.SYRIN ONE (18:29)
[2020-08-31] MEDS ORDERED: ONDANSETRON 4 MG/2 ML VIAL IVPUSH PRN (20:00)
[2020-09-01 03:48] VITALS: BMI 28.8
[2020-09-01] MEDS ORDERED: METHADONE HCL 10 MG TABLET PO SCH (06:00)
[2020-09-01] MEDS ORDERED: METHADONE HCL 40 MG DISPERSABLE TABLET PO SCH (09:24)
[2020-09-01 09:25] LABS: BASO % 0.5 % (0-2.0); EOS % 1.6 % (0-4.5); HEMATOCRIT 40.5 % (32.4-45.2); HEMOGLOBIN 13.6 GM/dL (10.7-15.3); LYMPH % 23.9 % (8-40); MCH 28.5 pg (25.7-33.7); MCHC 33.6 g/dl (32.0-36.0); MEAN CELL VOLUME 84.9 fl (80-96); MEAN PLT VOLUME 9.4 fl (7.5-11.1); MONO % 9.6 % (3.8-10.2); NEUT % 64.4 % (42.8-82.8); PLATELET COUNT 234 K/MM3 (134-434); RBC 4.77 M/mm3 (3.60-5.2); RDW 16.4 % (11.6-15.6); WHITE BLOOD COUNT 5.1 K/mm3 (4.0-10.0)
[2020-09-01] MEDS ORDERED: cefTRIAXone SODIUM 1 GM VIAL ONE (09:33)
[2020-09-01] MEDS ORDERED: DEXTROSE 5%-WATER - 50 ML IVPB ONE (09:33)
[2020-09-01] MEDS: ENOXAPARIN NA (PORCINE) 40 MG/0.4 ML DISP.SYRIN SQ SCH (09:47)
[2020-09-01] MEDS: METHADONE HCL 40 MG DISPERSABLE TABLET PO SCH (09:47)
[2020-09-01] MEDS: CEFTRIAXONE 1 GM in DEXTROSE 5%-WATER - 50 ML IVPB SCH (09:49)
[2020-09-01 10:02] LABS: POTASSIUM 3.3 mmol/L (3.5-5.1)
[2020-09-01 10:07] LABS: CHOLESTEROL 223 mg/dL (50-200)
[2020-09-01 10:08] LABS: TRIGLYCERIDES 93 mg/dL (0-150)
[2020-09-01 10:09] LABS: LDL CHOLESTEROL (ONLY SJRH) 152 mg/dL (5-100)
[2020-09-01 10:11] LABS: HDL CHOLESTEROL 36 mg/dL (40-60)
[2020-09-01 10:24] LABS: BILIRUBIN,TOTAL 0.9 mg/dL (0.2-1); CREATININE 0.4 mg/dL (0.55-1.3)
[2020-09-01 10:25] LABS: PHOSPHOROUS 2.4 mg/dL (2.5-4.9)
[2020-09-01 10:26] LABS: TOT PROT 5.9 g/dl (6.4-8.2)
[2020-09-01 11:37] LABS: BLOOD UREA NITROGEN 2.5 mg/dL (7-18)
[2020-09-01] MEDS ORDERED: POTASSIUM PHOSPHATE 15 MM in DEXTROSE 5%-WATER - 250 ML IVPB ONE (13:00)
[2020-09-01] MEDS ORDERED: Methylnaltrexone Bromide 12 MG/0.6 ML KIT SQ ONE (15:20)
[2020-09-01] MEDS: ONDANSETRON 4 MG/2 ML VIAL IVPUSH PRN (18:31)
[2020-09-01] MEDS: ACETAMINOPHEN 1000 MG/100 ML VIAL (NON FORMULARY) IVPB PRN (18:33)
[2020-09-01] MEDS: D5-1/2NS+10 MEQ KCL - 10 MEQ/1,000 ML INFUS.BAG IV SCH (18:34)
[2020-09-01] MEDS ORDERED: PEG 3350/NA SULF BICARB CL/KCL 4000 ML SOLN.RECON PO ONE (20:00)
[2020-09-02] MEDS: ACETAMINOPHEN 1000 MG/100 ML VIAL (NON FORMULARY) IVPB PRN ×2 (00:37→15:50)
[2020-09-02] MEDS: ONDANSETRON 4 MG/2 ML VIAL IVPUSH PRN ×2 (05:42→18:16)
[2020-09-02] MEDS: METHADONE HCL 40 MG DISPERSABLE TABLET PO SCH (05:42)
[2020-09-02] MEDS ORDERED: cefTRIAXone SODIUM 1 GM VIAL ONE (08:45)
[2020-09-02] MEDS ORDERED: DEXTROSE 5%-WATER - 50 ML IVPB ONE (08:45)
[2020-09-02] MEDS: CEFTRIAXONE 1 GM in DEXTROSE 5%-WATER - 50 ML IVPB SCH (09:05)
[2020-09-02 09:11] LABS: BASO % 0.4 % (0-2.0); EOS % 0.7 % (0-4.5); HEMOGLOBIN 13.3 GM/dL (10.7-15.3); LYMPH % 18.3 % (8-40); MCH 28.7 pg (25.7-33.7); MCHC 34.1 g/dl (32.0-36.0); MEAN CELL VOLUME 84.1 fl (80-96); MEAN PLT VOLUME 9.3 fl (7.5-11.1); MONO % 7.9 % (3.8-10.2); NEUT % 72.7 % (42.8-82.8); PLATELET COUNT 244 K/MM3 (134-434); RBC 4.64 M/mm3 (3.60-5.2); RDW 16.6 % (11.6-15.6); WHITE BLOOD COUNT 7.5 K/mm3 (4.0-10.0)
[2020-09-02 09:37] LABS: CALCIUM 7.9 mg/dL (8.5-10.1)
[2020-09-02 09:38] LABS: MAGNESIUM 1.8 mg/dL (1.8-2.4)
[2020-09-02 09:40] LABS: BILIRUBIN,TOTAL 0.3 mg/dL (0.2-1); CREATININE 0.5 mg/dL (0.55-1.3)
[2020-09-02 09:41] LABS: PHOSPHOROUS 2.4 mg/dL (2.5-4.9); TOT PROT 5.8 g/dl (6.4-8.2)
[2020-09-02 10:59] LABS: BLOOD UREA NITROGEN 1.4 mg/dL (7-18)
[2020-09-02] MEDS: ENOXAPARIN NA (PORCINE) 40 MG/0.4 ML DISP.SYRIN SQ SCH (13:25)
[2020-09-02] MEDS: D5-1/2NS+10 MEQ KCL - 10 MEQ/1,000 ML INFUS.BAG IV SCH (18:40)
[2020-09-03] MEDS: ONDANSETRON 4 MG/2 ML VIAL IVPUSH PRN (01:42)
[2020-09-03] MEDS: METHADONE HCL 40 MG DISPERSABLE TABLET PO SCH (06:38)
[2020-09-03 08:56] LABS: BASO % 0.7 % (0-2.0); EOS % 1.5 % (0-4.5); HEMATOCRIT 40.5 % (32.4-45.2); HEMOGLOBIN 13.6 GM/dL (10.7-15.3); LYMPH % 25.2 % (8-40); MCH 28.6 pg (25.7-33.7); MCHC 33.7 g/dl (32.0-36.0); MEAN CELL VOLUME 84.9 fl (80-96); MEAN PLT VOLUME 9.2 fl (7.5-11.1); MONO % 9.6 % (3.8-10.2); PLATELET COUNT 238 K/MM3 (134-434); RBC 4.77 M/mm3 (3.60-5.2); RDW 16.5 % (11.6-15.6); WHITE BLOOD COUNT 4.9 K/mm3 (4.0-10.0)
[2020-09-03 09:19] LABS: CHLORIDE 106 mmol/L (98-107); SODIUM 143 mmol/L (136-145)
[2020-09-03 09:21] LABS: ALBUMIN 3.1 g/dl (3.4-5.0); CALCIUM 7.7 mg/dL (8.5-10.1); CO2 31 mmol/L (21-32)
[2020-09-03 09:22] LABS: GLUCOSE,RANDOM 111 mg/dL (74-106); MAGNESIUM 1.7 mg/dL (1.8-2.4)
[2020-09-03 09:24] LABS: CREATININE 0.5 mg/dL (0.55-1.3)
[2020-09-03 09:25] LABS: PHOSPHOROUS 2.8 mg/dL (2.5-4.9); SGOT/AST 7 U/L (15-37); SGPT/ALT 9 U/L (13-61)
[2020-09-03 09:26] LABS: BILIRUBIN,TOTAL 0.4 mg/dL (0.2-1)
[2020-09-03 09:27] LABS: ALK PHOS 87 U/L (45-117)
[2020-09-03 09:54] LABS: ANION GAP 7 MMOL/L (8-16)
[2020-09-03] MEDS ORDERED: DEXTROSE 5%-WATER - 50 ML IVPB ONE (09:57)
[2020-09-03] MEDS ORDERED: cefTRIAXone SODIUM 1 GM VIAL ONE (09:57)
[2020-09-03] MEDS: ENOXAPARIN NA (PORCINE) 40 MG/0.4 ML DISP.SYRIN SQ SCH (10:59)
[2020-09-03] MEDS: CEFTRIAXONE 1 GM in DEXTROSE 5%-WATER - 50 ML IVPB SCH (10:59)
[2020-09-03 11:03] LABS: BLOOD UREA NITROGEN < 1.0 mg/dL (7-18); POTASSIUM 2.9 mmol/L (3.5-5.1)
[2020-09-03] MEDS ORDERED: ACETAMINOPHEN 325 MG TABLET (FP) PO PRN (13:20)
[2020-09-03] MEDS: METOCLOPRAMIDE HCL INJECTION 10 MG/2 ML VIAL IVPUSH SCH ×2 (13:52→22:53)
[2020-09-03] MEDS: KCL 10 MEQ IVPB 10 MEQ/100 ML INFUS.BAG IVPB SCH ×4 (13:52→22:30)
[2020-09-03] MEDS ORDERED: KCL 10 MEQ IVPB 10 MEQ/100 ML INFUS.BAG IVPB SCH (15:15)
[2020-09-03] MEDS: D5-1/2NS+10 MEQ KCL - 10 MEQ/1,000 ML INFUS.BAG IV SCH (17:38)
[2020-09-04] MEDS: KCL 10 MEQ IVPB 10 MEQ/100 ML INFUS.BAG IVPB SCH (01:00)
[2020-09-04] MEDS: METOCLOPRAMIDE HCL INJECTION 10 MG/2 ML VIAL IVPUSH SCH ×3 (06:15→21:40)
[2020-09-04] MEDS: METHADONE HCL 40 MG DISPERSABLE TABLET PO SCH (06:16)
[2020-09-04] MEDS ORDERED: DEXTROSE 5%-WATER - 50 ML IVPB ONE (09:36)
[2020-09-04] MEDS ORDERED: cefTRIAXone SODIUM 1 GM VIAL ONE (09:36)
[2020-09-04] MEDS: CEFTRIAXONE 1 GM in DEXTROSE 5%-WATER - 50 ML IVPB SCH (09:55)
[2020-09-04] MEDS: ENOXAPARIN NA (PORCINE) 40 MG/0.4 ML DISP.SYRIN SQ SCH (09:56)
[2020-09-04 10:08] LABS: BASO % 0.5 % (0-2.0); EOS % 2.2 % (0-4.5); HEMOGLOBIN 14.7 GM/dL (10.7-15.3); LYMPH % 27.8 % (8-40); MCH 28.9 pg (25.7-33.7); MEAN CELL VOLUME 84.9 fl (80-96); MEAN PLT VOLUME 9.4 fl (7.5-11.1); NEUT % 60.5 % (42.8-82.8); PLATELET COUNT 236 K/MM3 (134-434); RBC 5.07 M/mm3 (3.60-5.2); RDW 16.2 % (11.6-15.6); WHITE BLOOD COUNT 5.6 K/mm3 (4.0-10.0)
[2020-09-04 10:40] LABS: CHLORIDE 104 mmol/L (98-107); SODIUM 143 mmol/L (136-145)
[2020-09-04 11:08] LABS: ALBUMIN 3.2 g/dl (3.4-5.0); CO2 28 mmol/L (21-32); GLUCOSE,RANDOM 85 mg/dL (74-106); MAGNESIUM 1.8 mg/dL (1.8-2.4)
[2020-09-04 11:11] LABS: PHOSPHOROUS 2.9 mg/dL (2.5-4.9); SGOT/AST 9 U/L (15-37)
[2020-09-04 11:12] LABS: SGPT/ALT 11 U/L (13-61)
[2020-09-04 11:13] LABS: CREATININE 0.5 mg/dL (0.55-1.3)
[2020-09-04 11:14] LABS: TOT PROT 6.3 g/dl (6.4-8.2)
[2020-09-04 11:16] LABS: ALK PHOS 90 U/L (45-117)
[2020-09-04 11:17] LABS: ANION GAP 12 MMOL/L (8-16); POTASSIUM 3.2 mmol/L (3.5-5.1)
[2020-09-04 11:44] LABS: BLOOD UREA NITROGEN < 1.0 mg/dL (7-18)
[2020-09-04] MEDS ORDERED: LACTOBACILLUS ACIDOPHILUS 1 TABLET PO ONE ×2 (11:45→16:30)
[2020-09-04] MEDS ORDERED: POTASSIUM CHLORIDE ORAL LIQUID 20 MEQ/15 ML PO ONE ×2 (12:00→22:00)
[2020-09-04] MEDS: SIMETHICONE 80 MG TAB.CHEW (FP) PO PRN (16:00)
[2020-09-04] MEDS: MAGNESIUM 2GM/50ML STERILE WATER IVPB IVPB ONE ×2 (16:05→16:44)
[2020-09-04] MEDS ORDERED: MAGNESIUM SULF 50% (8.12 MEQ/2 ML-1 GM VIAL) IVPB ONE ×2 (16:30)
[2020-09-04] MEDS: D5-1/2NS+10 MEQ KCL - 10 MEQ/1,000 ML INFUS.BAG IV SCH (21:40)
[2020-09-05] MEDS: METHADONE HCL 40 MG DISPERSABLE TABLET PO SCH (06:39)
[2020-09-05] MEDS: METOCLOPRAMIDE HCL INJECTION 10 MG/2 ML VIAL IVPUSH SCH ×3 (06:39→23:30)
[2020-09-05] MEDS: SIMETHICONE 80 MG TAB.CHEW (FP) PO PRN (09:53)
[2020-09-05] MEDS: ENOXAPARIN NA (PORCINE) 40 MG/0.4 ML DISP.SYRIN SQ SCH (09:53)
[2020-09-05 11:49] LABS: BASO % 0.7 % (0-2.0); EOS % 2.5 % (0-4.5); HEMATOCRIT 43.6 % (32.4-45.2); HEMOGLOBIN 14.6 GM/dL (10.7-15.3); LYMPH % 32.6 % (8-40); MCH 28.5 pg (25.7-33.7); MCHC 33.5 g/dl (32.0-36.0); MEAN PLT VOLUME 9.3 fl (7.5-11.1); MONO % 9.9 % (3.8-10.2); NEUT % 54.3 % (42.8-82.8); PLATELET COUNT 253 K/MM3 (134-434); RBC 5.13 M/mm3 (3.60-5.2); RDW 16.7 % (11.6-15.6); WHITE BLOOD COUNT 5.6 K/mm3 (4.0-10.0)
[2020-09-05 11:56] LABS: POTASSIUM 3.9 mmol/L (3.5-5.1)
[2020-09-05 12:01] LABS: CALCIUM 8.5 mg/dL (8.5-10.1)
[2020-09-05 12:02] LABS: ALBUMIN 3.2 g/dl (3.4-5.0); MAGNESIUM 2.3 mg/dL (1.8-2.4)
[2020-09-05 12:03] LABS: BILIRUBIN,TOTAL 0.4 mg/dL (0.2-1)
[2020-09-05 12:04] LABS: CREATININE 0.5 mg/dL (0.55-1.3)
[2020-09-05 12:05] LABS: PHOSPHOROUS 2.7 mg/dL (2.5-4.9)
[2020-09-05 12:06] LABS: TOT PROT 6.5 g/dl (6.4-8.2)
[2020-09-05] MEDS: D5-1/2NS+10 MEQ KCL - 10 MEQ/1,000 ML INFUS.BAG IV SCH (19:29)
[2020-09-06] MEDS: METHADONE HCL 40 MG DISPERSABLE TABLET PO SCH (06:17)
[2020-09-06] MEDS: METOCLOPRAMIDE HCL INJECTION 10 MG/2 ML VIAL IVPUSH SCH ×2 (06:17→14:21)
[2020-09-06 09:20] LABS: BASO % 0.9 % (0-2.0); HEMATOCRIT 42.7 % (32.4-45.2); LYMPH % 30.3 % (8-40); MCH 28.1 pg (25.7-33.7); MCHC 32.7 g/dl (32.0-36.0); MEAN PLT VOLUME 9.6 fl (7.5-11.1); MONO % 7.4 % (3.8-10.2); NEUT % 59.4 % (42.8-82.8); PLATELET COUNT 248 K/MM3 (134-434); RBC 4.97 M/mm3 (3.60-5.2); RDW 16.9 % (11.6-15.6); WHITE BLOOD COUNT 5.6 K/mm3 (4.0-10.0)
[2020-09-06 09:50] LABS: POTASSIUM 3.9 mmol/L (3.5-5.1)
[2020-09-06 10:09] LABS: BLOOD UREA NITROGEN 5.4 mg/dL (7-18); CALCIUM 8.6 mg/dL (8.5-10.1)
[2020-09-06 10:10] LABS: ALBUMIN 3.1 g/dl (3.4-5.0); MAGNESIUM 2.2 mg/dL (1.8-2.4)
[2020-09-06 10:13] LABS: CREATININE 0.5 mg/dL (0.55-1.3); PHOSPHOROUS 2.9 mg/dL (2.5-4.9)
[2020-09-06 10:14] LABS: BILIRUBIN,TOTAL 0.5 mg/dL (0.2-1); TOT PROT 6.4 g/dl (6.4-8.2)
[2020-09-06] MEDS: ENOXAPARIN NA (PORCINE) 40 MG/0.4 ML DISP.SYRIN SQ SCH (10:27)
[2020-09-06 15:22] VITALS: BP 117/67; PULSE 70; TEMP 97.9
== END 2020-09-06 15:40 | disposition home or self-care (01) ==
LOC: JER 07:53 → JERBED 17:48 → J6S 09-01 03:27
PROVIDERS: ADMIT Internal Medicine; ATTEND Internal Medicine
PROC: HZ91ZZZ Pharmacotherapy for Substance Abuse Treatment, Methadone Maintenance (ICD-10-PCS; principal; 2020-09-01)
PROC: 0DJ08ZZ Inspection of Upper Intestinal Tract, Via Natural or Artificial Opening Endoscopic (ICD-10-PCS; 2020-09-02)
PROC: 0DB78ZX Excision of Stomach, Pylorus, Via Natural or Artificial Opening Endoscopic, Diagnostic (ICD-10-PCS; 2020-09-02)
PROC: 0DBH8ZX Excision of Cecum, Via Natural or Artificial Opening Endoscopic, Diagnostic (ICD-10-PCS; 2020-09-02)
PROC: 0DBL8ZX Excision of Transverse Colon, Via Natural or Artificial Opening Endoscopic, Diagnostic (ICD-10-PCS; 2020-09-02)
DX: K83.4 Spasm of sphincter of Oddi (principal); K21.9 Gastro-esophageal reflux disease without esophagitis; I10 Essential (primary) hypertension; E78.5 Hyperlipidemia, unspecified; M54.9 Dorsalgia, unspecified; E87.6 Hypokalemia; K52.9 Noninfective gastroenteritis and colitis, unspecified; T40.2X5A Adverse effect of other opioids, initial encounter; R11.2 Nausea with vomiting, unspecified; N39.0 Urinary tract infection, site not specified; K83.8 Other specified diseases of biliary tract; E46 Unspecified protein-calorie malnutrition; Z68.28 Body mass index [BMI] 28.0-28.9, adult; K63.5 Polyp of colon; K63.89 Other specified diseases of intestine; Z86.010 Personal history of colon polyps
CPT/HCPCS: 36415; 80053; 80061; 81003; 82962; 83690; 83721; 83735; 84100; 85025; 87086; 88305-TC; 93005; 93010; 99285-25; C9803; J0131; U0003

== ENCOUNTER 2021-08-10 19:49 | Observation (INO) | payer OTHER ==
[2021-08-10 20:29] VITALS: BMI 28.3
[2021-08-10] MEDS ORDERED: ONDANSETRON 4 MG/2 ML VIAL IVPUSH ONE (21:26)
[2021-08-10] MEDS ORDERED: METOCLOPRAMIDE HCL INJECTION 10 MG/2 ML VIAL IVPB ONE (21:30)
[2021-08-10] MEDS ORDERED: METOCLOPRAMIDE HCL INJECTION 10 MG/2 ML VIAL ONE (21:40)
[2021-08-10] MEDS ORDERED: MAG HYDROX/AL HYDROX/SIMETH -MYLANTA- ORAL SUSPENSION PO ONE (21:43)
[2021-08-10 22:08] LABS: BASO % 0.6 % (0-2.0); EOS % 1.5 % (0-4.5); HEMATOCRIT 48.4 % (32.4-45.2); HEMOGLOBIN 15.9 GM/dL (10.7-15.3); LYMPH % 35.7 % (8-40); MCH 28.6 pg (25.7-33.7); MCHC 32.8 g/dl (32.0-36.0); MEAN CELL VOLUME 87.1 fl (80-96); MEAN PLT VOLUME 9.6 fl (7.5-11.1); MONO % 8.7 % (3.8-10.2); NEUT % 53.5 % (42.8-82.8); PLATELET COUNT 266 10^3/uL (134-434); RBC 5.55 M/mm3 (3.60-5.2); WHITE BLOOD COUNT 6.4 K/mm3 (4.0-10.0)
[2021-08-10] MEDS ORDERED: MAG HYDROX/AL HYDROX/SIMETH 30 ML UNIT-DOSE CUP ONE (22:12)
[2021-08-10 22:29] LABS: CHLORIDE 103 mmol/L (98-107); SODIUM 139 mmol/L (136-145)
[2021-08-10 22:31] LABS: ALBUMIN 3.6 g/dl (3.4-5.0)
[2021-08-10 22:33] LABS: ANION GAP 8 MMOL/L (8-16); CO2 28 mmol/L (21-32); GLUCOSE,RANDOM 81 mg/dL (74-106); LIPASE 131 U/L (73-393); MAGNESIUM 2.5 mg/dL (1.8-2.4)
[2021-08-10 22:34] LABS: CREATININE 0.8 mg/dL (0.55-1.3); SGPT/ALT 13 U/L (13-61)
[2021-08-10 22:35] LABS: SGOT/AST 34 U/L (15-37)
[2021-08-10 22:37] LABS: BILIRUBIN,TOTAL 0.8 mg/dL (0.2-1); TOT PROT 7.7 g/dl (6.4-8.2)
[2021-08-10 22:38] LABS: ALK PHOS 111 U/L (45-117)
[2021-08-10 22:44] LABS: BLOOD UREA NITROGEN 6.1 mg/dL (7-18)
[2021-08-10] MEDS ORDERED: SODIUM CHLORIDE 1,000 ML IV STA (23:03)
[2021-08-11 00:04] LABS: EPI CELLS >36 /uL (0-25.1); HYALINE CASTS 55 /uL (0-3.1); PH,URINE 5.5 (5.0-8.0); URINE APPEARANCE CLOUDY; URINE BACTERIA 1248 /uL (0-1359); URINE BILIRUBIN 2+ (NEGATIVE); URINE COLOR DK YELLOW; URINE GLUCOSE (UA) NEGATIVE (NEGATIVE); URINE KETONE TRACE (NEGATIVE); URINE LEUK ESTERASE TRACE (NEGATIVE); URINE NITRITE NEGATIVE (NEGATIVE); URINE PROTEIN TRACE (NEGATIVE); URINE WBC 92 /uL (0-25.8)
[2021-08-11] MEDS ORDERED: CEFTRIAXONE 1 MG in DEXTROSE 5%-WATER - 50 ML IVPB ONE (05:18)
[2021-08-11] MEDS ORDERED: CEFTRIAXONE 1 GM in DEXTROSE 5%-WATER - 50 ML IVPB ONE (05:45)
[2021-08-11] MEDS ORDERED: CEFTRIAXONE 1 GM/50 ML BAG ONE (06:19)
[2021-08-11] MEDS ORDERED: METOCLOPRAMIDE HCL INJECTION 10 MG/2 ML VIAL IVPUSH PRN (09:03)
[2021-08-11 09:11] LABS: HEMATOCRIT 48.1 % (32.4-45.2); HEMOGLOBIN 15.5 GM/dL (10.7-15.3); MCH 28.5 pg (25.7-33.7); MCHC 32.2 g/dl (32.0-36.0); MEAN CELL VOLUME 88.3 fl (80-96); MEAN PLT VOLUME 9.2 fl (7.5-11.1); PLATELET COUNT 232 10^3/uL (134-434); RBC 5.44 M/mm3 (3.60-5.2); RDW 15.5 % (11.6-15.6); WHITE BLOOD COUNT 5.6 K/mm3 (4.0-10.0)
[2021-08-11 09:26] VITALS: TEMP 98.6
[2021-08-11] MEDS ORDERED: PANTOPRAZOLE SODIUM 40 MG VIAL IVPUSH SCH (10:00)
[2021-08-11] MEDS ORDERED: ENOXAPARIN NA (PORCINE) 40 MG/0.4 ML DISP.SYRIN SQ SCH (10:00)
[2021-08-11] MEDS ORDERED: POLYETHYLENE GLYCOL (HEALTHYLAX) 3350 17 GM PACKET PO SCH ×2 (10:00)
[2021-08-11 10:21] LABS: BLOOD UREA NITROGEN 6.3 mg/dL (7-18); CALCIUM 8.4 mg/dL (8.5-10.1)
[2021-08-11 10:23] LABS: ALBUMIN 3.4 g/dl (3.4-5.0)
[2021-08-11 10:24] LABS: CREATININE 0.8 mg/dL (0.55-1.3)
[2021-08-11 10:26] LABS: BILIRUBIN,TOTAL 0.5 mg/dL (0.2-1)
[2021-08-11] MEDS ORDERED: ENOXAPARIN NA (PORCINE) 40 MG/0.4 ML DISP.SYRIN SQ ONE (10:58)
[2021-08-11] MEDS ORDERED: PANTOPRAZOLE SODIUM 40 MG VIAL ONE (10:58)
[2021-08-11 13:24] VITALS: BP 141/74; PULSE 67
== END 2021-08-11 14:48 | disposition home or self-care (01) ==
LOC: JER 19:49 → UNDOADMOB 08-11 03:20 → INTOOBSV 08-11 03:20 → JERBED 08-11 03:20
PROVIDERS: ADMIT Internal Medicine
PROC: 3E03329 Introduction of Other Anti-infective into Peripheral Vein, Percutaneous Approach (ICD-10-PCS; principal; 2021-08-11)
PROC: 3E0337Z Introduction of Electrolytic and Water Balance Substance into Peripheral Vein, Percutaneous Approach (ICD-10-PCS; 2021-08-11)
PROC: 3E033GC Introduction of Other Therapeutic Substance into Peripheral Vein, Percutaneous Approach (ICD-10-PCS; 2021-08-11)
PROC: 3E013GC Introduction of Other Therapeutic Substance into Subcutaneous Tissue, Percutaneous Approach (ICD-10-PCS; 2021-08-11)
DX: K52.9 Noninfective gastroenteritis and colitis, unspecified (principal); K83.4 Spasm of sphincter of Oddi; R11.0 Nausea; I10 Essential (primary) hypertension; K21.9 Gastro-esophageal reflux disease without esophagitis; E78.5 Hyperlipidemia, unspecified; M54.59 Other low back pain; G89.29 Other chronic pain; F11.20 Opioid dependence, uncomplicated
CPT/HCPCS: 36415; 74177-TC; 80053; 81003; 83036; 83605; 83690; 83735; 84100; 84484; 85025; 85027; 87086; 93005; 93010; 96361; 96365; 96372; 96375; 99285-25; C9803; G0378; U0003; U0005

== ENCOUNTER 2022-06-22 04:34 | Day surgery (SDC) | payer OTHER ==
[2022-06-14 09:47] VITALS: BMI 29.8
[2022-06-22 08:28] VITALS: TEMP 97.8
[2022-06-22 08:42] VITALS: BP 108/67; PULSE 85; RESP 22
== END 2022-06-22 09:00 | disposition home or self-care (01) ==
LOC: JASU-ENDO 04:34
PROVIDERS: ATTEND Internal Medicine Gastroenterology
PROC: 0DJD8ZZ Inspection of Lower Intestinal Tract, Via Natural or Artificial Opening Endoscopic (ICD-10-PCS; principal; 2022-06-22 08:00)
DX: Z12.11 Encounter for screening for malignant neoplasm of colon (principal); Z86.010 Personal history of colon polyps